=== PATIENT | male | born 1970 | race Two or more races ===

== ENCOUNTER 2019-12-25 08:06 | Day surgery (SDC) | payer MEDICAID, SELFPAY ==
--- NOTE | 2019-12-24 15:16 | HO.ANESPROP2 ---
HPI - Anesthesia Eval Consult details Narrative: 49yo M for Colonoscopy [facility] Past Medical History Medical History (Updated 12/24/19 @ 15:17 by Fatou Nguyễn) Carpal tunnel syndrome Diabetes HTN (hypertension) Thyroid disease Surgical History Surgical History History of carpal tunnel release History of total left hip replacement Hx of thumb surgery Social History Social History (Updated 12/24/19 @ 15:17 by Fatou Nguyễn) Alcohol intake: current Meds Allergies Allergy/AdvReac Type Severity Reaction Status Date / Time Penicillins [PENICILLINS] Allergy Unknown UNKNOWN Unverified 11/08/19 18:47 Home Medications Medication Instructions Recorded Confirmed Type amlodipine 12/21/19 History atorvastatin 12/21/19 History levothyroxine 12/21/19 History lisinopril-hydrochlorothiazide 12/21/19 History meloxicam 12/21/19 History metformin 12/21/19 History multivitamin 12/21/19 12/21/19 History sertraline 12/21/19 History sulindac 12/21/19 History tramadol 12/21/19 History Exam Exam Date and Time: December 24, 2019 1516 Pertinent Lab Results Pertinent Lab Results: Laboratory Tests 10/04/19 10/04/19 10:05 10:05 WBC 8.0 Hgb 14.0 Hct 42.5 Plt Count 209 Sodium 137 Potassium 4.2 Chloride 101 BUN 14 Creatinine 1.12 Assessment and Plan Assessment Anesthesia Assessment: Chart Reviewed
[2019-12-25 08:51] VITALS: BMI 36.5
[2019-12-25 09:10] VITALS: BP 150/97; PULSE 85; RESP 18; TEMP 36.8; O2SAT 97
[2019-12-25 09:15] LABS: Glucose, Whole Blood 100 mg/dL (60-115)
--- NOTE | 2019-12-25 10:10 | P.CONAN_ITS ---
[facility] Past Medical History Medical History Carpal tunnel syndrome Diabetes HTN (hypertension) Thyroid disease Surgical History Surgical History History of carpal tunnel release History of total left hip replacement Hx of thumb surgery Social History Social History Alcohol intake: current Smoking Status: Never smoker Second Hand Smoke Exposure: No Use of substances other than those prescribed or required for medical reasons: No Advance Directives: No Meds Allergies Allergy/AdvReac Type Severity Reaction Status Date / Time Penicillins [PENICILLINS] Allergy Unknown UNKNOWN Unverified 11/08/19 18:47 Home Medications Medication Instructions Recorded Confirmed Type amlodipine 12/21/19 History atorvastatin 12/21/19 History levothyroxine 12/21/19 History lisinopril-hydrochlorothiazide 12/21/19 History meloxicam 12/21/19 History metformin 12/21/19 History multivitamin 12/21/19 12/21/19 History sertraline 12/21/19 History sulindac 12/21/19 History tramadol 12/21/19 History Exam Exam Date and Time: December 25, 2019 1010 Height,Weight and Vital Signs: Height 5 ft 8 in Weight 108.862 kg Last Vital Signs Temp 98.3 F 12/25/19 09:10 Pulse 85 12/25/19 09:10 Resp 18 12/25/19 09:10 BP 150/97 H 12/25/19 09:10 Pulse Ox 97 12/25/19 09:10 Pertinent Lab Results Pertinent Lab Results: Laboratory Tests 12/25/19 09:12 POC Glucose 100 Airway Mallampati Class: II TM Dist: <=3cm Neck ROM: Full Heart: RRR Lungs: CTA Assessment and Plan Assessment Anesthesia Assessment: Anesthesia Plan Discussed and Chart Reviewed Final Anesthetic Review NPO: Yes ASA Class: II Final Preanesthetic Review: Meds/Allgs Chart Reviewed, Consent Obtained/Reviewed and Anes Risks/Benef Reviewed Patient Risk: Intermediate Procedure Risk: Low Anesthetic Plan Anesthetic Plan: MAC: Disposition: Standard PACU
--- NOTE | 2019-12-25 10:35 | MHC.SHP ---
Pre-Procedural Eval Section A The patient is an INPATIENT: No Changes since office visit: No Cold of Flu in the past 2 weeks, No New Medical Problems, No Changes in Medication and No Patient answered all questions The History & Physical has been completed within 30 days and I have reviewed it.: Yes Section B Chief Complaint: screening Allergies: Allergies Allergy/AdvReac Type Severity Reaction Status Date / Time Penicillins [PENICILLINS] Allergy Unknown UNKNOWN Unverified 11/08/19 18:47 Plan Patient has been examined and remains a candidate for the planned procedure
[2019-12-25 11:16] VITALS: BP 131/59; PULSE 80; RESP 16; TEMP 36.9; O2SAT 96
--- NOTE | 2019-12-25 11:22 | PM.OP ---
Brief Operative Note Date of procedure: 12/25/19 Pre-op diagnosis: screening Post-op diagnosis: same Procedure: colonoscopy Surgeon: Fredi Young Anesthesia: MAC Estimated blood loss (mL): 0 Pathology: none sent Condition: stable Disposition: PACU
[2019-12-25 11:29] VITALS: BP 133/87; PULSE 80; RESP 16; TEMP 36.9; O2SAT 97
--- NOTE | 2019-12-25 11:50 | HO.POSTANES ---
Post Anesthesia Evaluation Post Anesthesia Evaluation Vital Signs: Vital Signs Temp Pulse Resp BP Pulse Ox 12/25/19 11:29 98.4 F 80 16 133/87 97 12/25/19 11:16 98.4 F 80 16 131/59 L 96 12/25/19 09:10 98.3 F 85 18 150/97 H 97 Anesthesia: Monitored Mental Status: Awake Pain Control: Satisfactory Nausea/Vomiting: None Hydration: Adequate Anesthesia-Related Issues: No Anes. Related Issues
--- NOTE | 2019-12-25 12:15 | OP_ITS ---
SURGEON: Fredi Young MD INDICATIONS: Colon cancer screening. PREOPERATIVE DIAGNOSIS: POSTOPERATIVE DIAGNOSIS: PROCEDURE PERFORMED: Colonoscopy to the cecum. ESTIMATED BLOOD LOSS: COMPLICATIONS: ANESTHESIA: ASSISTANTS: SPECIMENS: MEDICATIONS: Monitored anesthesia care. PROCEDURE DESCRIPTION: History and physical performed. The risks and benefits of the procedure were explained to the patient. Informed consent was obtained. The patient was placed in the left lateral decubitus position. A digital rectal exam was performed and was found to be normal. The Olympus pediatric video colonoscope was introduced into the rectum and advanced to the cecum with the assistance of abdominal wall pressure. The cecum was identified by transillumination, palpation, and identification of ileocecal valve. Examination was performed and the scope was removed. He tolerated the procedure well and was taken to recovery area in stable condition. FINDINGS: The terminal ileum was not examined. The visualized colonic mucosa was normal. There was a large amount of liquid stool coating the mucosa limiting examination, particularly in the cecum and in the sigmoid. This was washed and suctioned as best possible. No polyps were identified. No lesions were seen. Retroflexed examination was normal. IMPRESSION: Normal colonoscopy. RECOMMENDATIONS: 1. Follow up as needed. 2. Repeat colonoscopy is recommended in 3 years with a 2-day prep due to limitations on today's examination. MD CASSY Zarate/JOHN / [id number]
== END 2019-12-25 11:53 | disposition home or self-care (01) ==
PROVIDERS: PCP Internal Medicine; Visit Provider Internal Medicine Gastroenterology
PROC: 0DJD8ZZ Inspection of Lower Intestinal Tract, Via Natural or Artificial Opening Endoscopic (ICD-10-PCS; CPT 45378; principal; 2019-12-25 09:50)
DX: Z12.11 Encounter for screening for malignant neoplasm of colon (principal); I10 Essential (primary) hypertension; E11.9 Type 2 diabetes mellitus without complications; E03.9 Hypothyroidism, unspecified; Z79.84 Long term (current) use of oral hypoglycemic drugs; Z79.899 Other long term (current) drug therapy; Z79.1 Long term (current) use of non-steroidal anti-inflammatories (NSAID); Z96.642 Presence of left artificial hip joint; Z88.0 Allergy status to penicillin
CPT/HCPCS: 45378; 82947; J2250

== ENCOUNTER 2020-01-09 09:17 | Outpatient (REF) | payer MEDICAID, SELFPAY ==
[2020-01-09 10:57] LABS: Alanine Aminotransferase 57 U/L (0-40); Albumin Level 4.9 g/dL (3.5-5.0); Alkaline Phosphatase 90 U/L (39-117); Anion Gap 15 (12-20); Aspartate Amino Transferase 31 U/L (5-37); Blood Urea Nitrogen 19 mg/dL (9-16); Calcium 9.5 mg/dL (8.4-10.2); Carbon Dioxide 24 mmol/L (22-29); Chloride 99 mmol/L (96-108); Estimated Glomerular Filt Rate > 60; Glucose Random 109 mg/dL (60-115); Potassium 4.4 mmol/l (3.3-5.1); Sodium 134 mmol/L (135-145); Uric Acid 10.2 mg/dL (3.4-7.0)
[2020-01-09 12:04] LABS: Estimated Average Glucose 154 mg/dL
== END 2020-01-09 09:18 | disposition home or self-care (01) ==
LOC: HO.LAB 09:17
PROVIDERS: PCP Internal Medicine; Visit Provider Internal Medicine
DX: E03.8 Other specified hypothyroidism (principal); E78.2 Mixed hyperlipidemia; Z00.01 Encounter for general adult medical examination with abnormal findings; R80.8 Other proteinuria
CPT/HCPCS: 80053; 83036; 84550

== ENCOUNTER 2020-04-03 07:25 | Outpatient (REF) | payer MEDICAID, SELFPAY ==
[2020-04-03 08:27] LABS: Estimated Average Glucose 128 mg/dL; Hemoglobin A1c % 6.1 %
[2020-04-03 08:44] LABS: Alanine Aminotransferase 38 U/L (0-40); Albumin Level 4.7 g/dL (3.5-5.0); Alkaline Phosphatase 97 U/L (39-117); Anion Gap 15 (12-20); Aspartate Amino Transferase 27 U/L (5-37); Blood Urea Nitrogen 12 mg/dL (9-16); Calcium 9.5 mg/dL (8.4-10.2); Carbon Dioxide 27 mmol/L (22-29); Chloride 100 mmol/L (96-108); Estimated Glomerular Filt Rate > 60; Glucose Fasting 125 mg/dL (60-99); Potassium 4.3 mmol/L (3.3-5.1); Sodium 138 mmol/L (135-145); Total Protein 7.6 g/dL (6.5-8.0)
== END 2020-04-03 07:26 | disposition home or self-care (01) ==
LOC: HO.LAB 07:25
PROVIDERS: PCP Internal Medicine; Visit Provider Internal Medicine
DX: E03.9 Hypothyroidism, unspecified (principal); E11.9 Type 2 diabetes mellitus without complications; E78.2 Mixed hyperlipidemia; I10 Essential (primary) hypertension
CPT/HCPCS: 36415; 80053; 83036; 84443

== ENCOUNTER 2020-05-20 14:41 | Outpatient (REF) | payer MEDICAID, SELFPAY ==
--- NOTE | ~2020-05-20 | XR_ITS ---
EXAMINATION: XR FOOT, RIGHT CLINICAL INFORMATION: Pain and swelling COMPARISON: 04/12/2017 TECHNIQUE: AP, lateral, and oblique views of the right foot. FINDINGS: No acute fracture or dislocation. Mild spurring, subchondral sclerosis and some cystic change present at the first metatarsophalangeal joint. Small tibiotalar marginal osteophytes. Small Achilles tendon enthesophyte. Soft tissue swelling dorsal to the metatarsals. XR/XR foot RT min 3V IMPRESSION: No acute fracture or dislocation. Degenerative changes as described.
== END 2020-05-20 14:42 | disposition home or self-care (01) ==
LOC: HO.XRAY 14:41
PROVIDERS: PCP Internal Medicine; Visit Provider Internal Medicine
DX: M79.672 Pain in left foot (principal); R60.0 Localized edema
CPT/HCPCS: 73630

== ENCOUNTER 2020-05-21 08:39 | Outpatient (REF) | payer MEDICAID, SELFPAY ==
--- NOTE | 2020-05-21 08:43 | EMG_ITS ---
This is a 50-year-old man with history of pain in the left upper extremity in the wrist area, for which he received cortisone injection in October and November without much relief. PHYSICAL EXAMINATION: On examination, he is alert and oriented with normal intellectual functions. Cranial nerves II through XII are normal. Muscle tone and strength are normal in all 4 extremities. Deep tendon reflexes symmetrical. IMPRESSION: Carpal tunnel syndrome. Nerve conduction EMG study: Early carpal tunnel syndrome on the left. Normal nerve conduction in the ulnar nerve. Normal EMG of the left C5-T1 innervated muscles. MD JAMEL Ordoñez/JOHN / [id number]
== END 2020-05-21 08:40 | disposition home or self-care (01) ==
LOC: HO.NEURO 08:39
PROVIDERS: PCP Internal Medicine; Visit Provider Internal Medicine
DX: G56.02 Carpal tunnel syndrome, left upper limb (principal)
CPT/HCPCS: 95885; 95910

== ENCOUNTER 2020-05-23 13:51 | Outpatient (REF) | payer MEDICAID, SELFPAY ==
--- NOTE | ~2020-05-23 | XR_ITS ---
EXAMINATION: LEFT WRIST X-RAY CLINICAL INFORMATION: Pain COMPARISON: None TECHNIQUE: 4 views of the left wrist FINDINGS: No acute fracture. The scapholunate distance is widened. There is cortical irregularity of the radial side of the scaphoid bone and the radial styloid questionable for cystic or erosive changes. There is mild ulnar minus variance at the wrist. There are degenerative changes of the distal radial ulnar joint. There is mild osteoarthritis at the first CHCF joint with small bony osteophytes. Soft tissues are unremarkable. XR/XR wrist LT w scaphoid IMPRESSION: Widened scapholunate distance. Cortical irregularity and question cystic change of the distal radial side of the scaphoid bone and the radial styloid. Mild ulnar minus variance and degenerative change at the distal radial ulnar joint.
[2020-05-23 15:45] LABS: MANUAL DIFF FLAG NO
[2020-05-23 15:48] LABS: Basophils Percent Auto 0.4 % (0-2); Eosinophils Absolute Auto 0.3 X10*3/uL (0.0-0.4); Eosinophils Percent Auto 4.3 % (0-4); Hematocrit 39.9 % (42-52); Hemoglobin 13.7 g/dl (14.0-18.0); Imm Gran Abs Auto 0.02 X10*3/uL (0.00-0.03); Imm Gran Pct Auto 0.3 % (0.0-0.4); Lymphocytes Absolute Auto 1.6 X10*3/uL (1.2-4.9); Lymphocytes Percent Auto 20.8 % (20-40); Mean Corpuscular HGB Conc 34.3 g/dl (31.0-36.0); Mean Corpuscular Hemoglobin 30.2 pg (27.0-33.0); Mean Corpuscular Volume 88.1 fL (80-98); Mean Platelet Volume 10.6 fL (9.4-12.4); Monocytes Absolute Auto 0.5 X10*3/uL (0.1-1.2); Monocytes Percent Auto 6.6 % (2-11); Neutrophils Absolute Auto 5.2 X10*3/uL (2.0-8.3); Neutrophils Percent Auto 67.6 % (45-73); Platelet Count 338 X10*3/uL (160-400); Red Blood Count 4.53 X10*6/uL (4.60-5.80); White Blood Count 7.6 X10*3/uL (4.8-10.8)
[2020-05-23 16:01] LABS: Alanine Aminotransferase 27 U/L (0-40); Albumin Level 4.5 g/dL (3.5-5.0); Alkaline Phosphatase 87 U/L (39-117); Anion Gap 14 (12-20); Aspartate Amino Transferase 22 U/L (5-37); Bilirubin Total 0.6 mg/dL (0.0-1.0); Blood Urea Nitrogen 15 mg/dL (9-16); Calcium 9.2 mg/dL (8.4-10.2); Carbon Dioxide 26 mmol/L (22-29); Chloride 99 mmol/L (96-108); Estimated Glomerular Filt Rate > 60; Glucose Random 135 mg/dL (60-115); Potassium 4.2 mmol/L (3.3-5.1); Sodium 135 mmol/L (135-145); Total Protein 7.4 g/dL (6.5-8.0)
[2020-05-23 16:14] LABS: Rheumatoid Factor < 15.0 IU/mL (<15.0); Uric Acid 7.5 mg/dL (3.4-7.0)
[2020-05-23 16:31] LABS: Erythrocyte Sedimentation Rate 34 MM/HR (0-15)
[2020-05-24 05:32] LABS: Lyme Abs Screen <0.90 index
[2020-05-24 11:07] LABS: Cyclic Citrullinated Peptide <16 UNITS
== END 2020-05-23 13:52 | disposition home or self-care (01) ==
LOC: HO.LAB 13:51
PROVIDERS: PCP Internal Medicine; Visit Provider Student in an Organized Health Care Education/Training Program
DX: M25.532 Pain in left wrist (principal); M10.9 Gout, unspecified
CPT/HCPCS: 36415; 73110; 80053; 84550; 85025; 85652; 86140; 86200; 86431; 86617; 86618; 99202

== ENCOUNTER 2020-05-28 16:27 | Outpatient (REF) | payer MEDICAID, SELFPAY ==
--- NOTE | ~2020-05-28 | MR_ITS ---
EXAMINATION: MRI WRIST WITHOUT AND WITH CONTRAST, LEFT CLINICAL INFORMATION: Wrist pain. COMPARISON: X-ray 05/23/2020. TECHNIQUE: MRI of the wrist without and with contrast is performed in a 1.5 Sophie high-field scanner. 10 mL Gadavist. FINDINGS: BONE/JOINTS: Bony irregularity suggesting erosive changes with abnormal marrow edema and enhancement in the radial styloid process, the anterior and posterior aspect of the mid radius articular surface with associated cartilage loss; the radial aspect of the distal scaphoid, the proximal pole of the scaphoid, the radial aspect of the lunate. Edema, enhancement and probable erosive changes along the proximal triquetrum. There is a patchy [id number] edema diffusely in the distal radius; prominent marrow edema and enhancement extensively in the carpal bones, the metatarsal bases, more prominent in the 2nd and 3rd tarsometatarsal bases. Possible erosive changes in the capitate-triquetral articulation. Small wrist joint effusion effusion with synovitis. The findings have the appearance of prominent arthropathy, probably reflecting inflammatory arthropathy such as rheumatoid arthritis. Ulna-negative variance. Small distal radioulnar joint effusion. MUSCLE/TENDONS: Visualized tendons are intact. No significant tenosynovitis. Edema in the pronator quadratus muscle, palmar to the distal radius. LIGAMENTS: Degenerative tearing of the scapholunate ligament, with widening of the scapholunate distance. Degeneration with fraying/tear of the lunotriquetral ligament. Degenerative signal in the ulnar aspect of the TFCC, with possible fraying. No full-thickness tear is identified of the triangular fibrocartilage. MEDIAN NERVE: Within normal limits. MR/MR wrist LT wo/w con IMPRESSION: 1. Prominent arthropathy in the wrist joint, with diffuse marrow edema and enhancement, erosive changes. This includes erosions in the distal radius, the carpal bones as detailed above. Small joint effusion with synovitis. Primary differential consideration is for inflammatory arthropathy such as rheumatoid arthritis. 2. Small distal radioulnar joint. 3. Scapholunate ligament degenerative tearing, widening of the scapholunate distance. 4.Lunotriquetral ligament degeneration with suggestion of fraying/tear. Degenerative fraying of the ulnar component of the TFCC.
== END 2020-05-28 16:28 | disposition home or self-care (01) ==
LOC: HO.MRI 16:27
PROVIDERS: Visit Provider Student in an Organized Health Care Education/Training Program
DX: M25.532 Pain in left wrist (principal)
CPT/HCPCS: 73223; A9585

== ENCOUNTER 2020-06-04 07:21 | Outpatient (REF) | payer MEDICAID, SELFPAY ==
[2020-06-04 09:01] LABS: HBS Num1 0.73 mIU/mL (0-7.99); HBsAGNum1 0.31 S/CO (0.00-0.99); Hepatitis B Surface Antigen Negative (Negative); ~Hepatitis B Surface Antibody NONREACTIVE (Nonreactive)
[2020-06-04 09:14] LABS: HBc Num1 0.07 S/CO (0.00-0.79); Hepatitis A Antibody IgM 0.15 Index (0-0.79); Hepatitis B Core Antibody Nonreactive (Nonreactive); ~HepC Num1 0.17 S/CO (0.00-0.79); ~Hepatitis A Antibody IgM Nonreactive (Nonreactive); ~Hepatitis C Antibody Nonreactive (Nonreactive)
[2020-06-06 20:52] LABS: TS Negative Control Passed; TS Panel A 0; TS Panel B 0; TS Positive Control Passed; TSpotTB Negative (SeeBelow)
== END 2020-06-04 07:22 | disposition home or self-care (01) ==
LOC: HO.LAB 07:21
PROVIDERS: PCP Internal Medicine; Visit Provider Student in an Organized Health Care Education/Training Program
DX: M19.90 Unspecified osteoarthritis, unspecified site (principal)
CPT/HCPCS: 36415; 86481; 86704; 86706; 86709; 86803; 87340

== ENCOUNTER 2020-06-24 08:56 | Outpatient (REF) | payer MEDICAID, SELFPAY ==
--- NOTE | ~2020-06-24 | XR_ITS ---
EXAMINATION: PELVIS AND LEFT HIP AND LUMBAR SPINE X-RAY CLINICAL INFORMATION: Pain. Radiculopathy. COMPARISON: Previous left hip x-ray February 2014 TECHNIQUE: AP view of the pelvis and 2 views of the left hip. 3 views of the lumbar spine. FINDINGS: Pelvis and left hip: There is a left hip replacement in satisfactory position. No fracture, dislocation or x-ray evidence of loosening is seen. There is mild arthritis of the right hip joint with joint space narrowing and osteophyte formation. Bones of the pelvis are unremarkable. Soft tissues are unremarkable. Lumbar spine: Bone alignment is normal. No fracture or dislocation is seen. There is degenerative disc disease at L5-S1. There is degenerative spondylosis at L1-L2. There is lower lumbar spine facet arthritis. XR/XR hip LT w PEL1V IMPRESSION: Pelvis and left hip: Left hip replacement in satisfactory position. Mild arthritis at the right hip joint. Lumbar spine: Degenerative changes.
--- NOTE | ~2020-06-24 | XR_ITS ---
EXAMINATION: PELVIS AND LEFT HIP AND LUMBAR SPINE X-RAY CLINICAL INFORMATION: Pain. Radiculopathy. COMPARISON: Previous left hip x-ray February 2014 TECHNIQUE: AP view of the pelvis and 2 views of the left hip. 3 views of the lumbar spine. FINDINGS: Pelvis and left hip: There is a left hip replacement in satisfactory position. No fracture, dislocation or x-ray evidence of loosening is seen. There is mild arthritis of the right hip joint with joint space narrowing and osteophyte formation. Bones of the pelvis are unremarkable. Soft tissues are unremarkable. Lumbar spine: Bone alignment is normal. No fracture or dislocation is seen. There is degenerative disc disease at L5-S1. There is degenerative spondylosis at L1-L2. There is lower lumbar spine facet arthritis. XR/XR lumbar spine 2-3V IMPRESSION: Pelvis and left hip: Left hip replacement in satisfactory position. Mild arthritis at the right hip joint. Lumbar spine: Degenerative changes.
== END 2020-06-24 08:57 | disposition home or self-care (01) ==
LOC: HO.XRAY 08:56
PROVIDERS: Absent Provider Student in an Organized Health Care Education/Training Program; PCP Internal Medicine; Visit Provider Physician Assistant Surgical
DX: M54.16 Radiculopathy, lumbar region (principal)
CPT/HCPCS: 72100; 73502

== ENCOUNTER → 2020-06-26 12:37 | Outpatient (BNVA) | payer MEDICAID, SELFPAY | PROVIDERS: Visit Provider Student in an Organized Health Care Education/Training Program | DX: M19.90 Unspecified osteoarthritis, unspecified site (principal); M10.9 Gout, unspecified; G56.00 Carpal tunnel syndrome, unspecified upper limb; E11.9 Type 2 diabetes mellitus without complications; I10 Essential (primary) hypertension; E07.9 Disorder of thyroid, unspecified; Z88.0 Allergy status to penicillin; Z79.84 Long term (current) use of oral hypoglycemic drugs; Z79.899 Other long term (current) drug therapy | CPT/HCPCS: 99212 ==

== ENCOUNTER 2020-07-11 09:03 | Outpatient (REF) | payer MEDICAID, SELFPAY ==
[2020-07-11 10:58] LABS: Alanine Aminotransferase 58 U/L (0-40); Albumin Level 4.6 g/dL (3.5-5.0); Alkaline Phosphatase 81 U/L (39-117); Anion Gap 14 (12-20); Aspartate Amino Transferase 54 U/L (5-37); Bilirubin Total 0.5 mg/dL (0.0-1.0); Blood Urea Nitrogen 14 mg/dL (9-16); Calcium 9.5 mg/dL (8.4-10.2); Carbon Dioxide 27 mmol/L (22-29); Chloride 104 mmol/L (96-108); Estimated Glomerular Filt Rate > 60; Glucose Random 125 mg/dL (60-115); Potassium 4.9 mmol/L (3.3-5.1); Sodium 140 mmol/L (135-145); Total Protein 7.4 g/dL (6.5-8.0)
[2020-07-11 11:03] LABS: Estimated Average Glucose 134 mg/dL; Hemoglobin A1c % 6.3 %
== END 2020-07-11 09:04 | disposition home or self-care (01) ==
LOC: HO.LAB 09:03
PROVIDERS: PCP Internal Medicine; Visit Provider Internal Medicine
DX: E03.8 Other specified hypothyroidism (principal); E11.9 Type 2 diabetes mellitus without complications; G56.02 Carpal tunnel syndrome, left upper limb; I10 Essential (primary) hypertension; R21 Rash and other nonspecific skin eruption
CPT/HCPCS: 36415; 80053; 83036

== ENCOUNTER 2020-07-24 12:34 | Outpatient (REF) | payer MEDICAID, SELFPAY ==
[2020-07-24 13:45] LABS: MANUAL DIFF FLAG NO
[2020-07-24 13:51] LABS: Basophils Absolute Auto 0.1 X10*3/uL (0.0-0.2); Basophils Percent Auto 0.6 % (0-2); Eosinophils Absolute Auto 0.2 X10*3/uL (0.0-0.4); Eosinophils Percent Auto 2.5 % (0-4); Hematocrit 41.2 % (42-52); Hemoglobin 13.8 g/dl (14.0-18.0); Imm Gran Abs Auto 0.04 X10*3/uL (0.00-0.03); Imm Gran Pct Auto 0.5 % (0.0-0.4); Lymphocytes Absolute Auto 1.6 X10*3/uL (1.2-4.9); Lymphocytes Percent Auto 18.1 % (20-40); Mean Corpuscular HGB Conc 33.5 g/dl (31.0-36.0); Mean Corpuscular Hemoglobin 29.7 pg (27.0-33.0); Mean Corpuscular Volume 88.6 fL (80-98); Mean Platelet Volume 10.6 fL (9.4-12.4); Monocytes Absolute Auto 0.6 X10*3/uL (0.1-1.2); Monocytes Percent Auto 6.8 % (2-11); Neutrophils Absolute Auto 6.2 X10*3/uL (2.0-8.3); Neutrophils Percent Auto 71.5 % (45-73); Platelet Count 301 X10*3/uL (160-400); Red Blood Count 4.65 X10*6/uL (4.60-5.80); Red Cell Distribution Width 15.1 % (11.0-16.0); White Blood Count 8.7 X10*3/uL (4.8-10.8)
[2020-07-24 14:30] LABS: Alanine Aminotransferase 29 U/L (0-40); Albumin Level 4.6 g/dL (3.5-5.0); Alkaline Phosphatase 86 U/L (39-117); Anion Gap 18 (12-20); Aspartate Amino Transferase 24 U/L (5-37); Bilirubin Total 0.7 mg/dL (0.0-1.0); Blood Urea Nitrogen 18 mg/dL (9-16); C Reactive Protein 0.34 mg/dL (< or = 0.50); Calcium 10.1 mg/dL (8.4-10.2); Carbon Dioxide 27 mmol/L (22-29); Chloride 102 mmol/L (96-108); Estimated Glomerular Filt Rate 51; Glucose Random 125 mg/dL (60-115); Potassium 4.8 mmol/L (3.3-5.1); Sodium 142 mmol/L (135-145); Total Protein 7.6 g/dL (6.5-8.0)
[2020-07-24 15:54] LABS: Erythrocyte Sedimentation Rate 12 MM/HR (0-15)
== END 2020-07-24 12:35 | disposition home or self-care (01) ==
LOC: HO.LAB 12:34
PROVIDERS: PCP Internal Medicine; Visit Provider Student in an Organized Health Care Education/Training Program
DX: M19.90 Unspecified osteoarthritis, unspecified site (principal)
CPT/HCPCS: 36415; 80053; 85025; 85652; 86140

== ENCOUNTER → 2020-08-06 07:52 | Outpatient (BNVA) | payer MEDICAID, SELFPAY | PROVIDERS: PCP Internal Medicine; Visit Provider Student in an Organized Health Care Education/Training Program ==

== ENCOUNTER → 2020-08-12 10:53 | Outpatient (BNVA) | payer MEDICAID, SELFPAY | PROVIDERS: PCP Internal Medicine; Visit Provider Student in an Organized Health Care Education/Training Program | DX: L40.50 Arthropathic psoriasis, unspecified (principal); M10.9 Gout, unspecified | CPT/HCPCS: 99212 ==

== ENCOUNTER 2020-09-03 07:47 | Outpatient (REF) | payer MEDICAID, SELFPAY ==
[2020-09-03 08:32] LABS: MANUAL DIFF FLAG NO
[2020-09-03 08:39] LABS: Basophils Percent Auto 0.5 % (0-2); Eosinophils Absolute Auto 0.2 X10*3/uL (0.0-0.4); Eosinophils Percent Auto 1.9 % (0-4); Hematocrit 41.9 % (42-52); Hemoglobin 13.9 g/dl (14.0-18.0); Imm Gran Abs Auto 0.05 X10*3/uL (0.00-0.03); Imm Gran Pct Auto 0.6 % (0.0-0.4); Lymphocytes Absolute Auto 2.3 X10*3/uL (1.2-4.9); Lymphocytes Percent Auto 28.1 % (20-40); Mean Corpuscular HGB Conc 33.2 g/dl (31.0-36.0); Mean Corpuscular Hemoglobin 29.8 pg (27.0-33.0); Mean Corpuscular Volume 89.9 fL (80-98); Mean Platelet Volume 10.5 fL (9.4-12.4); Monocytes Absolute Auto 0.5 X10*3/uL (0.1-1.2); Monocytes Percent Auto 6.4 % (2-11); Neutrophils Absolute Auto 5.2 X10*3/uL (2.0-8.3); Neutrophils Percent Auto 62.5 % (45-73); Platelet Count 202 X10*3/uL (160-400); Red Blood Count 4.66 X10*6/uL (4.60-5.80); Red Cell Distribution Width 14.8 % (11.0-16.0); White Blood Count 8.3 X10*3/uL (4.8-10.8)
[2020-09-03 09:00] LABS: Estimated Average Glucose 137 mg/dL; Hemoglobin A1c % 6.4 %
[2020-09-03 09:25] LABS: Thyroid Stimulating Hormone 1.72 uIU/mL (0.32-4.0)
[2020-09-03 09:32] LABS: Alanine Aminotransferase 39 U/L (0-40); Albumin Level 4.6 g/dL (3.5-5.0); Alkaline Phosphatase 83 U/L (39-117); Anion Gap 15 (12-20); Aspartate Amino Transferase 29 U/L (5-37); Bilirubin Total 0.9 mg/dL (0.0-1.0); Blood Urea Nitrogen 14 mg/dL (9-16); Carbon Dioxide 25 mmol/L (22-29); Chloride 102 mmol/L (96-108); Cholesterol 193 mg/dL; Estimated Glomerular Filt Rate > 60; Glucose Random 142 mg/dL (60-115); HDL Cholesterol 44 mg/dL; LDL Cholesterol Calculated 92 mg/dl; Potassium 4.7 mmol/L (3.3-5.1); Sodium 137 mmol/L (135-145); Total Protein 7.6 g/dL (6.5-8.0); Triglycerides 286 mg/dL; Uric Acid 9.3 mg/dL (3.4-7.0)
[2020-09-03 10:46] LABS: Microalbum/Creatinine Ratio Ur 11.7 ug/mg cr
[2020-09-05 13:42] LABS: Anti Nuclear Antibody Screen NEGATIVE (NEGATIVE)
== END 2020-09-03 07:48 | disposition home or self-care (01) ==
LOC: HO.LAB 07:47
PROVIDERS: Absent Provider Student in an Organized Health Care Education/Training Program; PCP Internal Medicine; Visit Provider Internal Medicine
DX: E03.9 Hypothyroidism, unspecified (principal); E11.9 Type 2 diabetes mellitus without complications; E78.00 Pure hypercholesterolemia, unspecified; G56.02 Carpal tunnel syndrome, left upper limb; I10 Essential (primary) hypertension; M10.9 Gout, unspecified
CPT/HCPCS: 36415; 80053; 80061; 82043; 83036; 84443; 84550; 85025; 86038; 86039

== ENCOUNTER → 2020-10-17 08:10 | Outpatient (BNVA) | payer MEDICAID, SELFPAY | PROVIDERS: PCP Internal Medicine; Visit Provider Student in an Organized Health Care Education/Training Program | DX: L40.50 Arthropathic psoriasis, unspecified (principal); M10.9 Gout, unspecified; E11.9 Type 2 diabetes mellitus without complications; I10 Essential (primary) hypertension | CPT/HCPCS: 99212 ==

== ENCOUNTER 2020-12-22 06:58 | Outpatient (REF) | payer MEDICAID, SELFPAY ==
[2020-12-22 07:47] LABS: MANUAL DIFF FLAG NO
[2020-12-22 07:58] LABS: Basophils Absolute Auto 0.1 X10*3/uL (0.0-0.2); Basophils Percent Auto 0.6 % (0-2); Eosinophils Absolute Auto 0.5 X10*3/uL (0.0-0.4); Eosinophils Percent Auto 5.3 % (0-4); Hematocrit 43.3 % (42.0-52.0); Hemoglobin 14.4 g/dl (14.0-18.0); Imm Gran Abs Auto 0.04 X10*3/uL (0.00-0.03); Imm Gran Pct Auto 0.4 % (0.0-0.4); Lymphocytes Absolute Auto 2.7 X10*3/uL (1.2-4.9); Lymphocytes Percent Auto 28.2 % (20-40); Mean Corpuscular HGB Conc 33.3 g/dl (31.0-36.0); Mean Corpuscular Volume 90.2 fL (80.0-98.0); Mean Platelet Volume 10.5 fL (9.4-12.4); Monocytes Absolute Auto 0.7 X10*3/uL (0.1-1.2); Monocytes Percent Auto 7.7 % (2-11); Neutrophils Absolute Auto 5.54 x10*3/uL (2.0-8.3); Neutrophils Percent Auto 57.8 % (45-73); Platelet Count 294 X10*3/uL (160-400); White Blood Count 9.6 X10*3/uL (4.8-10.8)
[2020-12-22 08:26] LABS: Alanine Aminotransferase 38 U/L (0-40); Albumin Level 4.8 g/dL (3.5-5.0); Alkaline Phosphatase 97 U/L (39-117); Anion Gap 16 (12-20); Aspartate Amino Transferase 25 U/L (5-37); Bilirubin Total 0.4 mg/dL (0.0-1.0); Blood Urea Nitrogen 16 mg/dL (9-16); C Reactive Protein 0.47 mg/dL (< or = 0.50); Calcium 10.2 mg/dL (8.4-10.2); Carbon Dioxide 25 mmol/L (22-29); Chloride 104 mmol/L (96-108); Cholesterol 144 mg/dL; Estimated Glomerular Filt Rate > 60; Glucose Random 122 mg/dL (60-115); HDL Cholesterol 40 mg/dL; LDL Cholesterol Calculated 62 mg/dl; Potassium 4.8 mmol/L (3.3-5.1); Sodium 140 mmol/L (135-145); Total Protein 7.7 g/dL (6.5-8.0); Triglycerides 214 mg/dL
[2020-12-22 08:38] LABS: Estimated Average Glucose 143 mg/dL; Hemoglobin A1c % 6.6 %
[2020-12-22 08:49] LABS: Erythrocyte Sedimentation Rate 11 MM/HR (0-15)
== END 2020-12-22 06:59 | disposition home or self-care (01) ==
LOC: HO.LAB 06:58
PROVIDERS: Absent Provider Student in an Organized Health Care Education/Training Program; PCP Internal Medicine; Visit Provider Internal Medicine
DX: Z00.01 Encounter for general adult medical examination with abnormal findings (principal); M10.9 Gout, unspecified; I10 Essential (primary) hypertension; F32.89 Other specified depressive episodes; E78.2 Mixed hyperlipidemia; E11.9 Type 2 diabetes mellitus without complications
CPT/HCPCS: 36415; 80053; 80061; 83036; 85025; 85652; 86140

== ENCOUNTER → 2021-01-12 12:24 | Outpatient (BNVA) | payer MEDICAID, SELFPAY | PROVIDERS: PCP Internal Medicine; Visit Provider Nurse Practitioner Family | DX: L40.50 Arthropathic psoriasis, unspecified (principal); M10.9 Gout, unspecified | CPT/HCPCS: 99212 ==

== ENCOUNTER 2021-03-10 08:00 | Outpatient (RCR) | payer MEDICAID, SELFPAY ==
--- NOTE | 2021-02-18 15:32 | MHC.OT.OEV ---
[address] [phone] F: [phone] Occupational Therapy Evaluation Diagnosis: Right medial elbow pain Date of Onset: 01/27/21 Date of Surgery: Attending Provider: Shivani Reardon Prescribed Treatment: Eval and kiki MATOS Follow Up Appointment: History of Current Condition: Pt reports onset of right medial elbow pain one week after low back surgery. Injected by PCP with some improvement Significant Medical History: Left THR , right CTR, Right CMC arthroplasty, Precautions/Contraindications: Pain Patient Goals: Get elbow and arm back on track Hand Dominance: Right Observations: QuickDASH Score: 47 Prior Level of Function and Occupation Self Care, Employment, Leisure: Indep in all areas. 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 Living Situation, Family and/or Social Support: Single . Lives alone Some social support. Visits [place] Current Level of Function and Occupation Self Care, Employment, Leisure: Mild difficulty ADL due to elbow discomfort Inc with twist mop. Sleep: Mild diff. Occasional discomfort and tingling in hand Driving: WNL Vision: WFL Balance: WFL . 4 wks po back surgery Pain Assessment Pain Score: 3 Pain Scale Used: Numeric (0 - 10) Pain Location and Description: 2-3 right medial elbow. Ache Aggravating Factors: Lifting , pulling... Alleviating Factors: Skin and Soft Tissue Assessment Skin and Soft Tissue: Comments: Old right hand scars..CMC arthroplasty Nerve assessment Ulnar Nerve: WNL Median Nerve: WNL Radial Nerve: WNL Comments: Sensory Assessment Temperature: Light Touch: WNL Proprioception: Vibration: Comments: Edema Assessment Upper Extremity: WNL Lower Extremity: Comments: Dexterity Assessment Dexterity: WNL Comments: Special Tests Comments: AROM(PROM) Strength Cervical Cervical Flexion: Cervical Extension: Cervical Lateral Flexion: Cervical Rotation: Comments: WFL Shoulder Flexion: Extension: Abduction: Internal Rotation: External Rotation: Comments: WNL Flexion: Extension: Abduction: Internal Rotation: External Rotation: Comments: Elbow Flexion: Extension: Pronation: Supination: Comments: WNL Flexion: Extension: Pronation: Supination: Comments: WNL Wrist Flexion: Extension: Ulnar Deviation: Radial Deviation: Comments: WFL . 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 Patient demonstrates Patient verbalizes Barriers to Learning: None Readiness for Learning: Accepting Who was educated? Patient Comments: Plan of Care Assessment: Pt is a 50 yo male with recent right medial elbow pain probably due to use of a cane and supporting his wt on his right hand since back surgery on 01/22/21. He reports significant improvement since his elbow was injected by Dr. Reardon . 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 Pt will benefit from a short course of OT for a graded strenghtening program for elbow reinjury prevention. 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
--- NOTE | 2021-03-10 08:48 | MHC.OT.DC ---
[address] [phone] F: [phone] Occupational Therapy Discharge Note Provider: Shivani Reardon Diagnosis: Right medial elbow pain Date of Surgery: Date of Evaluation: 02/18/21 Date of Discharge: 03/10/21 Treatments to Date: 4 Cancellations to Date: 0 No Shows to Date: 0 Discharge Status: Achieved Goals Improved Function Independent with HEP Discharge Summary: Elbow pain improved. Goal met. Pt demo good body mechanics a good understanding of his HEP and elbow protection techniques. Daily activities are not affected by elbow pain ,however he reports moderate difficulty with daily activities due to bilateral wrist pain with a Quick DASH score of 59 pts. 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 He may benefit from OT for wrist pain when he finishes with PT Electronically Signed By: Terri Acosta OT CHT CLT Reviewed/agree with student documentation: N/A Therapist: Please Sign and return to therapist, thank you for your referral.
== END 2021-03-10 08:49 | disposition home or self-care (01) ==
LOC: HO.OT 08:00
PROVIDERS: PCP Internal Medicine; Visit Provider Internal Medicine
DX: M77.00 Medial epicondylitis, unspecified elbow (principal)
CPT/HCPCS: 97110; 97165

== ENCOUNTER 2021-04-01 07:20 | Outpatient (REF) | payer MEDICAID, SELFPAY ==
[2021-04-01 07:39] LABS: MANUAL DIFF FLAG NO
[2021-04-01 07:54] LABS: Basophils Percent Auto 0.4 % (0-2); Eosinophils Absolute Auto 0.3 X10*3/uL (0.0-0.4); Hematocrit 41.5 % (42.0-52.0); Hemoglobin 13.7 g/dl (14.0-18.0); Imm Gran Abs Auto 0.08 X10*3/uL (0.00-0.03); Imm Gran Pct Auto 1.2 % (0.0-0.4); Lymphocytes Absolute Auto 2.3 X10*3/uL (1.2-4.9); Lymphocytes Percent Auto 33.3 % (20-40); Mean Corpuscular Hemoglobin 29.1 pg (27.0-33.0); Mean Corpuscular Volume 88.3 fL (80.0-98.0); Mean Platelet Volume 10.3 fL (9.4-12.4); Monocytes Absolute Auto 0.7 X10*3/uL (0.1-1.2); Neutrophils Absolute Auto 3.5 x10*3/uL (2.0-8.3); Neutrophils Percent Auto 51.1 % (45-73); Platelet Count 293 X10*3/uL (160-400); Red Cell Distribution Width 13.8 % (11.0-16.0); White Blood Count 6.8 X10*3/uL (4.8-10.8)
[2021-04-01 08:08] LABS: Estimated Average Glucose 154 mg/dL
[2021-04-01 08:18] LABS: Alanine Aminotransferase 72 U/L (0-40); Albumin Level 4.5 g/dL (3.5-5.0); Alkaline Phosphatase 103 U/L (39-117); Anion Gap 14 (12-20); Aspartate Amino Transferase 50 U/L (5-37); Bilirubin Total 0.7 mg/dL (0.0-1.0); Blood Urea Nitrogen 12 mg/dL (9-16); C Reactive Protein 0.21 mg/dL (< or = 0.50); Carbon Dioxide 27 mmol/L (22-29); Chloride 103 mmol/L (96-108); Estimated Glomerular Filt Rate > 60; Glucose Random 161 mg/dL (60-115); Potassium 4.6 mmol/L (3.3-5.1); Sodium 139 mmol/L (135-145); Total Protein 7.5 g/dL (6.5-8.0)
[2021-04-01 08:40] LABS: Erythrocyte Sedimentation Rate 11 MM/HR (0-15)
[2021-04-01 08:52] LABS: Thyroid Stimulating Hormone 1.79 uIU/mL (0.32-4.0)
== END 2021-04-01 07:21 | disposition home or self-care (01) ==
LOC: HO.LAB 07:20
PROVIDERS: Nurse Practitioner Family; PCP Internal Medicine; Visit Provider Internal Medicine
DX: L40.50 Arthropathic psoriasis, unspecified (principal); M19.90 Unspecified osteoarthritis, unspecified site; I10 Essential (primary) hypertension; E03.8 Other specified hypothyroidism; E11.9 Type 2 diabetes mellitus without complications; E78.2 Mixed hyperlipidemia; F32.A Depression, unspecified; Z68.36 Body mass index [BMI] 36.0-36.9, adult
CPT/HCPCS: 36415; 80053; 83036; 84443; 85025; 85652; 86140

== ENCOUNTER 2021-05-25 13:33 | Outpatient (REF) | payer MEDICAID, SELFPAY ==
--- NOTE | ~2021-05-25 | XR_ITS ---
EXAMINATION: XR LUMBOSACRAL SPINE WITH OBLIQUES CLINICAL INFORMATION: Radiculopathy. Lumbar region. COMPARISON: None TECHNIQUE: AP, both oblique, and lateral views of the lumbar spine. Lateral view of the lumbosacral junction. FINDINGS: There is normal lumbar lordosis. There is loss of L5-S1 disc height. Rest the disc heights are maintained normal. There is mild ventral spondylosis L1-L2, L2-L3 and L3-L4 disc levels. No acute fracture or lytic process seen. There is no pars defect or listhesis on oblique view. No subluxation seen on flexion-extension views. The SI joints are symmetrical and normal. There is a total left hip prosthesis. The prosthetic components are in satisfactory position. No soft tissue abnormality seen. XR/XR lumbar spine 6V w bending IMPRESSION: Mild degenerative disc changes L5-S1 disc level. There is no subluxation seen on flexion-extension views. No pars defect or listhesis on oblique views. There is mild posterior spondylosis L2-L3, L3-L4 and L4-L5 disc levels.
== END 2021-05-25 13:34 | disposition home or self-care (01) ==
LOC: HO.XRAY 13:33
PROVIDERS: PCP Internal Medicine; Visit Provider Nurse Practitioner Family
DX: M54.16 Radiculopathy, lumbar region (principal); M43.06 Spondylolysis, lumbar region; M62.830 Muscle spasm of back; M96.1 Postlaminectomy syndrome, not elsewhere classified; E11.9 Type 2 diabetes mellitus without complications; I10 Essential (primary) hypertension; E07.9 Disorder of thyroid, unspecified; Z96.642 Presence of left artificial hip joint; Z88.0 Allergy status to penicillin; Z88.8 Allergy status to other drugs, medicaments and biological substances; Z79.84 Long term (current) use of oral hypoglycemic drugs; Z79.899 Other long term (current) drug therapy
CPT/HCPCS: 72114; 99202

== ENCOUNTER → 2021-06-19 09:06 | Outpatient (BNVA) | payer MEDICAID, SELFPAY | PROVIDERS: PCP Internal Medicine; Visit Provider Nurse Practitioner Family | DX: M43.06 Spondylolysis, lumbar region (principal); M96.1 Postlaminectomy syndrome, not elsewhere classified; M54.16 Radiculopathy, lumbar region; M62.830 Muscle spasm of back | CPT/HCPCS: 99212 ==

== ENCOUNTER 2021-07-02 06:25 | Outpatient (REF) | payer MEDICAID, SELFPAY ==
[2021-07-02 07:52] LABS: Estimated Average Glucose 146 mg/dL; Hemoglobin A1c % 6.7 %
[2021-07-02 08:17] LABS: Alanine Aminotransferase 47 U/L (0-40); Albumin Level 4.5 g/dL (3.5-5.0); Alkaline Phosphatase 99 U/L (39-117); Anion Gap 15 (12-20); Aspartate Amino Transferase 41 U/L (5-37); Bilirubin Total 0.8 mg/dL (0.0-1.0); Blood Urea Nitrogen 16 mg/dL (9-16); Calcium 10.1 mg/dL (8.4-10.2); Carbon Dioxide 27 mmol/L (22-29); Chloride 104 mmol/L (96-108); Estimated Glomerular Filt Rate > 60; Glucose Random 156 mg/dL (60-115); Potassium 4.7 mmol/L (3.3-5.1); Sodium 141 mmol/L (135-145)
== END 2021-07-02 06:26 | disposition home or self-care (01) ==
LOC: HO.LAB 06:25
PROVIDERS: PCP Internal Medicine; Visit Provider Internal Medicine
DX: E03.8 Other specified hypothyroidism (principal); E11.9 Type 2 diabetes mellitus without complications; I10 Essential (primary) hypertension; M96.1 Postlaminectomy syndrome, not elsewhere classified; R63.5 Abnormal weight gain; R74.01 Elevation of levels of liver transaminase levels
CPT/HCPCS: 36415; 80053; 83036

== ENCOUNTER 2021-08-14 13:07 | Outpatient (REF) | payer MEDICAID, SELFPAY ==
--- NOTE | ~2021-08-14 | MM_ITS ---
EXAMINATION: MM DIAGNOSTIC DIGITAL BREAST TOMOSYNTHESIS, BILATERAL Targeted right breast ultrasound CLINICAL INFORMATION: Right breast lump COMPARISON: Mammography: None TECHNIQUE: Digital breast tomosynthesis is performed in both the craniocaudal and mediolateral oblique views along with computer-aided detection (CAD). Synthesized 2D images are generated from the tomosynthesis. Targeted right breast ultrasound FINDINGS: The breasts are almost entirely fatty (ACR BI-RADS breast composition Category a). There are no significant masses, abnormal calcifications, or other abnormalities. There is some retroareolar parenchyma present right greater than left. Targeted right breast ultrasound demonstrated the appearance of gynecomastia without suspicious mass or sound shadowing. Results are discussed with the patient at time of visit. MM/MM tomosynthesis diagnostic BI IMPRESSION: No specific mammographic or ultrasound findings to suggest malignancy. ASSESSMENT: BI-RADS 1: Negative RECOMMENDATION: Clinical follow-up
== END 2021-08-14 13:08 | disposition home or self-care (01) ==
LOC: HO.MAMMO 13:07
PROVIDERS: PCP Internal Medicine; Visit Provider Internal Medicine
DX: N63.20 Unspecified lump in the left breast, unspecified quadrant (principal); N63.10 Unspecified lump in the right breast, unspecified quadrant
CPT/HCPCS: 76642; 77062; 77066

== ENCOUNTER → 2021-08-25 14:23 | Outpatient (BNVA) | payer MEDICAID, SELFPAY | PROVIDERS: PCP Internal Medicine; Visit Provider Surgery | DX: N63.10 Unspecified lump in the right breast, unspecified quadrant (principal) | CPT/HCPCS: 99202 ==

== ENCOUNTER 2021-08-28 05:53 | Day surgery (SDC) | payer MEDICAID, SELFPAY ==
--- NOTE | 2021-08-27 10:05 | HO.ANESPROP2 ---
Documented by User: Fatou Nguyễn NP 08/27/21 10:07 HPI - Anesthesia Eval Consult details Narrative: 51yo M for?Lumbar Spinal Cord Stimulation Trial [facility] Active Problems Active Problems: All Active Problems (Updated 05/25/21 @ 14:26 by RACHNA Ford) Muscle spasm of back (Acute) Lumbar radiculopathy (Acute) Lumbar spondylolysis (Acute) Lumbar post-laminectomy syndrome (Acute) Psoriatic arthritis (Acute) Inflammatory arthritis (Acute) Gout (Acute) Left wrist pain (Acute) Past Medical History Medical History Carpal tunnel syndrome Diabetes HTN (hypertension) Thyroid disease Family History Family History Mother HTN (hypertension) Father Hypothyroidism Surgical History Surgical History History of carpal tunnel release History of total left hip replacement Hx of thumb surgery Social History Social History Alcohol intake: current Patient Tobacco Use Status: Never used Tobacco e-Cigarette/Vaping Use: Never Used Second Hand Smoke Exposure: No Use of substances other than those prescribed or required for medical reasons: No Are you DNR?: No Advance Directives: No Advance Directives Information Provided: Yes Recently lost weight without trying: No Nutrition Risks: No Nutritional Risk Meds Allergies Allergy/AdvReac Type Severity Reaction Status Date / Time Penicillins [PENICILLINS] Allergy Unknown as a child Verified 08/25/21 14:33 etanercept [From Enbrel] Allergy Rash Verified 08/25/21 14:33 Home Medications Medication Instructions Recorded Confirmed Last Taken Type atorvastatin 80 mg tablet 80 mg PO DAILY 05/23/20 08/27/21 Unknown History levothyroxine 50 mcg capsule 50 mcg PO DAILY 05/23/20 08/27/21 Unknown History metformin 850 mg tablet 850 mg PO BID 05/23/20 08/27/21 Unknown History multivitamin 1 tab PO DAILY 05/23/20 08/27/21 Unknown History sertraline 100 mg tablet 100 mg PO DAILY 05/23/20 08/27/21 Unknown History lisinopril 40 mg tablet 40 mg PO DAILY 08/12/20 08/27/21 Unknown History allopurinol 300 mg tablet 600 mg PO BID gout 05/25/21 08/27/21 Unknown History nortriptyline 50 mg capsule 50 mg PO BEDTIME 05/25/21 08/27/21 Unknown History Exam Exam Date and Time: August 27, 2021 1005 Pertinent Lab Results Pertinent Lab Results: Laboratory Tests 04/01/21 07/02/21 07:38 06:40 WBC 6.8 Hgb 13.7 L Hct 41.5 L Plt Count 293 Sodium 141 Potassium 4.7 Chloride 104 Carbon Dioxide 27 BUN 16 Creatinine 1.11 Assessment and Plan Assessment Anesthesia Assessment: Chart Reviewed Documented by User: Owen Kolb MD 08/28/21 07:25 [facility] Past Medical History Medical History Carpal tunnel syndrome Diabetes HTN (hypertension) Thyroid disease Family History Family History Mother HTN (hypertension) Father Hypothyroidism Family history of problems with anesthesia: No Surgical History Surgical History History of carpal tunnel release History of total left hip replacement Hx of thumb surgery History of Problems with Anesthesia: No Social History Social History Alcohol intake: current Patient Tobacco Use Status: Never used Tobacco e-Cigarette/Vaping Use: Never Used Second Hand Smoke Exposure: No Use of substances other than those prescribed or required for medical reasons: No Are you DNR?: No Advance Directives: No Advance Directives Information Provided: Yes Recently lost weight without trying: No Nutrition Risks: No Nutritional Risk Meds Allergies Allergy/AdvReac Type Severity Reaction Status Date / Time Penicillins [PENICILLINS] Allergy Unknown as a child Verified 08/25/21 14:33 etanercept [From Enbrel] Allergy Rash Verified 08/25/21 14:33 Home Medications Medication Instructions Recorded Confirmed Last Taken Type atorvastatin 80 mg tablet 80 mg PO DAILY 05/23/20 08/27/21 Unknown History levothyroxine 50 mcg capsule 50 mcg PO DAILY 05/23/20 08/27/21 Unknown History metformin 850 mg tablet 850 mg PO BID 05/23/20 08/27/21 Unknown History multivitamin 1 tab PO DAILY 05/23/20 08/27/21 Unknown History sertraline 100 mg tablet 100 mg PO DAILY 05/23/20 08/27/21 Unknown History lisinopril 40 mg tablet 40 mg PO DAILY 08/12/20 08/27/21 Unknown History allopurinol 300 mg tablet 600 mg PO BID gout 05/25/21 08/27/21 Unknown History nortriptyline 50 mg capsule 50 mg PO BEDTIME 05/25/21 08/27/21 Unknown History Exam Airway Mallampati Class: III TM Dist: >3cm Neck ROM: Full Loose/Missing/Broken Teeth: No Heart: rrr Lungs: clear Assessment and Plan Final Anesthetic Review Family History of Problems with Anesthesia: No History of Problems with Anesthesia: No NPO: Yes ASA Class: II Final Preanesthetic Review: No Changes in Pt Med Stat, Meds/Allgs Chart Reviewed, Consent Obtained/Reviewed and Anes Risks/Benef Reviewed Patient Risk: Intermediate Procedure Risk: Low Anesthetic Plan Disposition: Standard PACU
--- NOTE | ~2021-08-28 | FL_ITS ---
EXAMINATION: XR FLUOROSCOPY WITH IMAGES CLINICAL INFORMATION: Spinal stimulator trial COMPARISON: None. TECHNIQUE: Fluoroscopy performed by the Dr. Tanvir Agarwal. Fluoroscopy time: 2.1 minutes DAP: 26.0 mGycm2 Images: 3 FINDINGS: There are 3 digital images obtained of thoracic spine with 2 spinal stimulator electrodes along the anterior pleural space in the mid thoracic spine. Visualized bones are grossly unremarkable except for moderate spondylosis right mid thoracic spine. FL/FL guidance in OR IMPRESSION: Fluoroscopy guidance was provided for spinal stimulator insertion to Dr. Agarwal
[2021-08-28 06:13] VITALS: BMI 38.0
[2021-08-28 06:29] VITALS: BP 130/79; PULSE 83; RESP 16; TEMP 36.4; O2SAT 98
[2021-08-28 06:40] LABS: Glucose, Whole Blood 131 mg/dL (60-115)
[2021-08-28] MEDS: Lactated Ringers 1,000 ML 100 ML IVCONT (06:47)
--- NOTE | 2021-08-28 07:04 | MHC.SHP ---
Pre-Procedural Eval Section A Date of Service: 08/28/21 The patient is an INPATIENT: No Changes since office visit: Yes Patient answered all questions The History & Physical has been completed within 30 days and I have reviewed it.: No Section B Chief Complaint: Postlaminectomy syndrome, Details of Present Illness: as above Relevant Family History (Specify if Yes): No Relevant Social History: None Present Medications: see Short Stay Collaborative assessment Medical History: No relevant PMH History of Previous Operations: No relevant previous surgery Allergies: Allergies Allergy/AdvReac Type Severity Reaction Status Date / Time Penicillins [PENICILLINS] Allergy Unknown as a child Verified 08/25/21 14:33 etanercept [From Enbrel] Allergy Rash Verified 08/25/21 14:33 Review of Systems Sugical H&P ROS: Negative: Cardiovascular, Respiratory, Neurological, Psychiatric, Hem-Onc, Allergic/Immunologic, Gastrointestinal, Genitourinary, Musculoskeletal, Integumentary, Endocrine and Eyes/Ears/Nose/Throat and Yes, Specify: Constitution (obesity) Exam Surgical H&P Exam: Normal: HEENT, Normal: Heart, Normal: Lungs, Normal: Extremities, Normal: Skin and Normal: Neurological and Significant Findings: Abdomen (enlarged due to ia fat) Plan I have reviewed the history and physical and performed a pertinent physical examination on my patient. No changes have occurred unless specified.
[2021-08-28 09:07] VITALS: BP 125/83; PULSE 88; RESP 16; TEMP 37.3; O2SAT 96
--- NOTE | 2021-08-28 09:12 | PM.OP ---
Brief Operative Note Date of Service: 08/28/21 Pre-op diagnosis: postlaminectomy syndrome Post-op diagnosis: same Procedure: trial of [employer] SCS Implants: none permanent Surgeon: Tanvir Lovelace MD Anesthesia: GETA Was an Senior Software Development Engineer used for this Procedure?: No Estimated blood loss (mL): 0 Pathology: none sent Condition: stable Disposition: PACU
--- NOTE | 2021-08-28 09:13 | W.PM.OPN ---
Operative Note Operative Note Date of Service: 08/28/21 Narrative: Amando Edwardis very pleasant 51 years old gentleman who came today into the operating room for trial of spinal cord stimulator for the treatment of post laminectomy syndrome. Preoperatively patient received ? cefazolin 2 g approximately 10 minutes before the procedure. After obtaining informed consent the patient was brought to the operating room, HE was positioned prone on operating table, [employer] monitors were applied and the patient was moderately sedated.? ?Time-out was performed delineating correct site, side, the nature of the procedure, patient's allergy, preoperative antibiotic if needed.? All operating room staff was participating in OR time-out procedure. Patient's entire back was prepped with DuraPrep twice and draped with full body fenestrated laparoscopy drape.? Sterilely draped C-arm was brought over operating field and square picture of the ? T12-L1 L2 and L3 vertebrae? were demonstrated on the screen.? ?Attention FIRST? was concentrated on the L1-L2 epidural interspace.? The location of the projection of the right pedicle center of the L3 vertebra was found on the skin using C-arm.? This location was injected with mixture of lidocaine 2% and Marcaine 0.5% 5 cc.? After that 11 blade was used to make a valeria on the skin.? 10 cm 14 gauge? introducer epidural needle was inserted through the valeria and advanced to? L1-L2 epidural interspace.? The advancement of the needle was performed on anterior posterior and lateral views.?Loss of resistance to air? technique were used to locate epidural space., epidural lead was inserted through the needle and it was advanced to?? T7 level slightly right to the midline.? ? .? After that? the location of the projection of the LEFT pedicle center of the? L3 vertebra was found on the skin using C-arm.? This location was injected with mixture of lidocaine 2% and Marcaine 0.5% 5 cc.? After that 11 blade was used to make a valeria on the skin.? 10 cm 14 gauge introducer epidural needle was inserted through the valeria and advanced to L1- L2 epidural interspace.? The advancement of the needle was performed on anterior posterior and lateral views.? Guitar wire and loss of resistance technique were used to locate epidural space.? When guitar wire was spread in the epidural fashion, epidural lead was inserted through the needle and advanced to the middle of? T7 epidural interspace slightly? left to the existing electrode. Impedance was checked and was satisfactory . at this moment patient was awaken of the epidural leads were connected to the testing wires and trial stimulation was performed.? Patient was reporting that the both leads produce the stimulation at the right side. The right positioned lead then was taken down and it was moved up again across the existing lead inserted through the left side to be positioned to the left of the existing left inserderd lead. Impedance was checked again and it was found to be satisfactory. Now the patient was reporting the stimulation corresponding to the laterality of the epidural leads position. Posterior placement was verified by lateral x-ray The stimulation was found to be corresponding to the patient's pain. The needles were withdrawn, the stylette wires were removed from the epidural leads.? The anchoring devices were dislodged on the leads and advanced to the level of the skin.? The anchoring devices were sutured with two 0-0 ?Silk sutures per each anchor to the skin of the patient. The central fixation screw of each anchor was rotated until three clicks were heard. The leads were connected to testing device.? Bacitracin ointment was applied to the entrance point of bilateral wires.? Sterile dressing was applied to the patient's back.? The testing device was also glued to the patient's back.? the patient tolerated procedure well he was awaken and taken outside of the operating room to recovery room. he recovered uneventfully.
[2021-08-28 09:22] VITALS: BP 124/77; PULSE 81; RESP 18; O2SAT 97
[2021-08-28 09:37] VITALS: BP 122/72; PULSE 78; RESP 18; TEMP 36.3; O2SAT 97
== END 2021-08-28 11:00 | disposition home or self-care (01) ==
PROVIDERS: PCP Internal Medicine; Visit Provider Anesthesiology
PROC: (CPT 63650; principal; 2021-08-28 07:30)
DX: M43.06 Spondylolysis, lumbar region (principal); M96.1 Postlaminectomy syndrome, not elsewhere classified; M54.16 Radiculopathy, lumbar region; M54.50 Low back pain, unspecified; M62.830 Muscle spasm of back; M13.88 Other specified arthritis, other site; I10 Essential (primary) hypertension; L40.50 Arthropathic psoriasis, unspecified; E07.9 Disorder of thyroid, unspecified; M10.9 Gout, unspecified; E11.9 Type 2 diabetes mellitus without complications; Z79.84 Long term (current) use of oral hypoglycemic drugs; Z79.899 Other long term (current) drug therapy; Z88.0 Allergy status to penicillin; Z88.8 Allergy status to other drugs, medicaments and biological substances; Z96.642 Presence of left artificial hip joint
CPT/HCPCS: 63650 ×2; 82947; C1713; C1778; J2250; J2795

== ENCOUNTER → 2021-09-03 09:28 | Outpatient (BNVA) | payer MEDICAID, SELFPAY | PROVIDERS: PCP Internal Medicine; Visit Provider Anesthesiology | DX: M43.06 Spondylolysis, lumbar region (principal); M54.16 Radiculopathy, lumbar region; M96.1 Postlaminectomy syndrome, not elsewhere classified; M62.830 Muscle spasm of back | CPT/HCPCS: 99212 ==

== ENCOUNTER → 2021-09-14 09:45 | Outpatient (BNVA) | payer MEDICAID, SELFPAY | PROVIDERS: PCP Internal Medicine; Visit Provider Anesthesiology | DX: M43.06 Spondylolysis, lumbar region (principal); M96.1 Postlaminectomy syndrome, not elsewhere classified; M54.16 Radiculopathy, lumbar region; M62.830 Muscle spasm of back; M46.1 Sacroiliitis, not elsewhere classified; M53.3 Sacrococcygeal disorders, not elsewhere classified | CPT/HCPCS: 99212 ==

== ENCOUNTER 2021-09-23 09:44 | Day surgery (SDC) | payer MEDICAID, SELFPAY ==
--- NOTE | 2021-09-22 09:00 | P.CONAN_ITS ---
Documented by User: Fatou Nguyễn NP 09/22/21 09:02 HPI - Anesthesia Eval Consult details Narrative: 51yo M for Excision Mass of breast s/p spinal stim trial 08/28/21 with MAC PMFSH Active Problems Active Problems: All Active Problems (Updated 09/14/21 @ 12:57 by Tanvir Lovelace MD) Sacroiliac joint pain (Acute) Sacroiliitis (Acute) Breast mass, right (Acute) Muscle spasm of back (Acute) Lumbar radiculopathy (Acute) Lumbar spondylolysis (Acute) Lumbar post-laminectomy syndrome (Acute) Psoriatic arthritis (Acute) Inflammatory arthritis (Acute) Gout (Acute) Left wrist pain (Acute) Past Medical History Medical History (Updated 09/22/21 @ 09:00 by Fatou Nguyễn NP) Carpal tunnel syndrome Diabetes Gout HTN (hypertension) Lumbar post-laminectomy syndrome Lumbar spondylolysis Psoriatic arthritis Thyroid disease Family History Family History Mother HTN (hypertension) Father Hypothyroidism Family history of problems with anesthesia: No Surgical History Surgical History History of carpal tunnel release History of total left hip replacement Hx of thumb surgery History of Problems with Anesthesia: No Social History Social History Alcohol intake: current Alcohol intake frequency: holidays/special occasions only Patient Tobacco Use Status: Never used Tobacco e-Cigarette/Vaping Use: Never Used Second Hand Smoke Exposure: No Meds Allergies Allergy/AdvReac Type Severity Reaction Status Date / Time Penicillins [PENICILLINS] Allergy Unknown as a child Verified 09/14/21 10:27 etanercept [From Enbrel] Allergy Rash Verified 09/14/21 10:27 Home Medications Medication Instructions Recorded Confirmed Last Taken Type atorvastatin 80 mg tablet 80 mg PO DAILY 05/23/20 08/27/21 Unknown History levothyroxine 50 mcg capsule 50 mcg PO DAILY 05/23/20 08/27/21 Unknown History multivitamin 1 tab PO DAILY 05/23/20 08/27/21 Unknown History sertraline 100 mg tablet 100 mg PO DAILY 05/23/20 08/27/21 Unknown History lisinopril 40 mg tablet 40 mg PO DAILY 08/12/20 08/27/21 Unknown History allopurinol 300 mg tablet 600 mg PO BID gout 05/25/21 08/27/21 Unknown History nortriptyline 50 mg capsule 50 mg PO BEDTIME 05/25/21 08/27/21 Unknown History amlodipine 10 mg tablet 10 mg PO DAILY 09/03/21 Unknown History ibuprofen 800 mg tablet 800 mg PO TID 09/03/21 Unknown History metformin 1,000 mg tablet 1,000 mg PO BID 09/03/21 Unknown History metronidazole 0.75 % topical cream appl topical QAM 09/03/21 Unknown History minocycline 100 mg capsule 100 mg PO DAILY 09/03/21 Unknown History rosuvastatin 40 mg tablet 40 mg PO DAILY 09/03/21 Unknown History Exam Exam Date and Time: September 22, 2021 0900 Pertinent Lab Results Pertinent Lab Results: Laboratory Tests 04/01/21 07/02/21 07:38 06:40 WBC 6.8 Hgb 13.7 L Hct 41.5 L Plt Count 293 Sodium 141 Potassium 4.7 Chloride 104 Carbon Dioxide 27 BUN 16 Creatinine 1.11 Assessment and Plan Assessment Anesthesia Assessment: Chart Reviewed Final Anesthetic Review Family History of Problems with Anesthesia: No History of Problems with Anesthesia: No Documented by User: Owen Kolb MD 09/23/21 11:08 [facility] Past Medical History Medical History (Updated 09/22/21 @ 09:00 by Fatou Nguyễn NP) Carpal tunnel syndrome Diabetes Gout HTN (hypertension) Lumbar post-laminectomy syndrome Lumbar spondylolysis Psoriatic arthritis Thyroid disease Family History Family History Mother HTN (hypertension) Father Hypothyroidism Surgical History Surgical History History of carpal tunnel release History of total left hip replacement Hx of thumb surgery Social History Social History Alcohol intake: current Alcohol intake frequency: holidays/special occasions only Patient Tobacco Use Status: Never used Tobacco e-Cigarette/Vaping Use: Never Used Second Hand Smoke Exposure: No Meds Allergies Allergy/AdvReac Type Severity Reaction Status Date / Time Penicillins [PENICILLINS] Allergy Unknown as a child Verified 09/14/21 10:27 etanercept [From Enbrel] Allergy Rash Verified 09/14/21 10:27 Home Medications Medication Instructions Recorded Confirmed Last Taken Type atorvastatin 80 mg tablet 80 mg PO DAILY 05/23/20 08/27/21 Unknown History levothyroxine 50 mcg capsule 50 mcg PO DAILY 05/23/20 08/27/21 Unknown History multivitamin 1 tab PO DAILY 05/23/20 08/27/21 Unknown History sertraline 100 mg tablet 100 mg PO DAILY 05/23/20 08/27/21 Unknown History lisinopril 40 mg tablet 40 mg PO DAILY 08/12/20 08/27/21 Unknown History allopurinol 300 mg tablet 600 mg PO BID gout 05/25/21 08/27/21 Unknown History nortriptyline 50 mg capsule 50 mg PO BEDTIME 05/25/21 08/27/21 Unknown History amlodipine 10 mg tablet 10 mg PO DAILY 09/03/21 Unknown History ibuprofen 800 mg tablet 800 mg PO TID 09/03/21 Unknown History metformin 1,000 mg tablet 1,000 mg PO BID 09/03/21 Unknown History metronidazole 0.75 % topical cream appl topical QAM 09/03/21 Unknown History minocycline 100 mg capsule 100 mg PO DAILY 09/03/21 Unknown History rosuvastatin 40 mg tablet 40 mg PO DAILY 09/03/21 Unknown History Exam Airway Mallampati Class: II TM Dist: >3cm Neck ROM: Full Loose/Missing/Broken Teeth: No Heart: rrr Lungs: clear Assessment and Plan Final Anesthetic Review NPO: Yes ASA Class: III Final Preanesthetic Review: No Changes in Pt Med Stat, Meds/Allgs Chart Reviewed, Consent Obtained/Reviewed and Anes Risks/Benef Reviewed Patient Risk: Intermediate Procedure Risk: Low Anesthetic Plan Anesthetic Plan: GA Disposition: Standard PACU
[2021-09-23] VITALS (10 sets, daily range): BP systolic 121–153; BP diastolic 67–93; PULSE 82–102; RESP 16–20; TEMP 36.4–37.2; O2SAT 94–99; BMI 38.0
[2021-09-23 10:58] LABS: Glucose, Whole Blood 120 mg/dL (60-115)
[2021-09-23] MEDS: Lactated Ringers 1,000 ML 100 ML IVCONT (11:03)
--- NOTE | 2021-09-23 12:26 | MHC.SHP ---
Pre-Procedural Eval Section A Date of Service: 09/23/21 The patient is an INPATIENT: No Changes since office visit: Yes Patient answered all questions; No Cold of Flu in the past 2 weeks, No New Medical Problems and No Changes in Medication The History & Physical has been completed within 30 days and I have reviewed it.: Yes Section B Chief Complaint: lump right breast Allergies: Allergies Allergy/AdvReac Type Severity Reaction Status Date / Time Penicillins [PENICILLINS] Allergy Unknown as a child Verified 09/14/21 10:27 etanercept [From Enbrel] Allergy Rash Verified 09/14/21 10:27 Plan Diagnosis/Plan: Unchanged I have reviewed the history and physical and performed a pertinent physical examination on my patient. No changes have occurred unless specified.
--- NOTE | 2021-09-23 13:46 | W.PM.OPN ---
Operative Note Operative Note Date of Service: 09/23/21 Narrative: Preoperative diagnosis: Right breast mass Postoperative diagnosis: same Procedure: excision of right breast masses Surgeon: Rob Elias MD Language Instructor: no position Anesthesia: general LMA Indications for procedure: 51-year-old male patient presenting with mass of the right breast which is causing pain. On examination the mass measures approximately 5 cm in diameter is tender to palpation. No overlying skin changes are appreciated however. Operative findings: Mass right breast Specimen: mass right breast Estimated blood loss: 10 mL Complications: none Procedure details: patient was brought to the OR placed in a supine position. After administering general anesthesia the patient's right breast was prepped with ChloraPrep and draped in a sterile fashion. A surgical time-out was called the consent confirmed. Patient received preoperative antibiotics and Venodyne boots were in place. Local anesthesia consisting of 0.5% Sensorcaine was infiltrated a curvilinear fashion below the areola in the 6 o'clock position of the right breast. Incision was then made with a scalpel carried out through subcutaneous tissue. Superior inferior skin flaps were then created. Dissection was then continued over the palpable mass to interrupt the ductal tissue. Dissection was continued more superiorly above the mass and posterior around the Posterior aspect of the palpable mass. This was excised off the chest wall sent to pathology for further examination. After assuring adequate hemostasis the abdomen was irrigated with saline solution and suctioned dry. Subcutaneous tissue and dermis were then reapproximated using interrupted 3-0 Polysorb sutures. Skin was closed using a running subcuticular 4-0 Polysorb suture. Steri-Strips, 2 x 2 gauze and Tegaderm were then applied. The patient tolerated the procedure well. Sponge, instrument, and needle counts reported as correct. The patient was transferred to PACU in stable condition.
[2021-09-23] MEDS: Acetaminophen 325 MG TABLET 650 MG PO (14:15)
[2021-09-23] MEDS: oxyCODONE HCl Immed Release 5 MG TABLET PO (14:15)
[2021-09-23] MEDS: fentaNYL citrate/PF 100 MCG/2 ML VIAL 25 MCG IVPUSH ×3 (14:15→14:25)
== END 2021-09-23 16:01 | disposition home or self-care (01) ==
PROVIDERS: PCP Internal Medicine; Visit Provider Surgery
PROC: (CPT 19120; principal; 2021-09-23 12:00)
DX: N62 Hypertrophy of breast (principal); I10 Essential (primary) hypertension; E07.9 Disorder of thyroid, unspecified; E11.9 Type 2 diabetes mellitus without complications; Z79.84 Long term (current) use of oral hypoglycemic drugs; Z79.899 Other long term (current) drug therapy; Z88.0 Allergy status to penicillin; Z88.8 Allergy status to other drugs, medicaments and biological substances; Z96.642 Presence of left artificial hip joint
CPT/HCPCS: 19120; 82947; 88305; 88307; J1100; J2250; J2405; J2795; J3010; J3370

== ENCOUNTER 2021-09-29 06:12 | Outpatient (REF) | payer MEDICAID, SELFPAY ==
--- NOTE | ~2021-09-29 | FL_ITS ---
EXAMINATION: XR FLUOROSCOPY WITH IMAGES CLINICAL INFORMATION: M53.3 - Sacrococcygeal disorders, not elsewhere classified COMPARISON: Radiographs lumbar spine 05/25/2021 TECHNIQUE: Fluoroscopy performed by Dr. Tanvir Lovelace. Fluoroscopy time: 0.4 minutes. Cumulative Dose: 9.83 mGy. DAP: 2.68 Gy-cm2. Images: 2. FINDINGS: Spinal needle overlies bilateral lower SI joints. There is contrast in the periarticular soft tissues with probable early intra-articular contrast. No vasculature communication appreciated. FL/FL guidance in treatment room IMPRESSION: Fluoroscopy for pain management procedure.
== END 2021-09-29 06:13 | disposition home or self-care (01) ==
LOC: HO.RADIR 06:12
PROVIDERS: Visit Provider Anesthesiology
DX: M53.3 Sacrococcygeal disorders, not elsewhere classified (principal); M43.06 Spondylolysis, lumbar region; M96.1 Postlaminectomy syndrome, not elsewhere classified; M54.16 Radiculopathy, lumbar region; M62.830 Muscle spasm of back; M46.1 Sacroiliitis, not elsewhere classified
CPT/HCPCS: 27096; J3300

== ENCOUNTER 2021-10-14 06:25 | Outpatient (REF) | payer MEDICAID, SELFPAY ==
[2021-10-14 06:37] LABS: MANUAL DIFF FLAG NO
[2021-10-14 07:51] LABS: Basophils Percent Auto 0.4 % (0-2); Eosinophils Absolute Auto 0.4 X10*3/uL (0.0-0.4); Eosinophils Percent Auto 6.1 % (0-4); Hematocrit 40.1 % (42.0-52.0); Hemoglobin 13.6 g/dl (14.0-18.0); Imm Gran Abs Auto 0.04 X10*3/uL (0.00-0.03); Imm Gran Pct Auto 0.6 % (0.0-0.4); Lymphocytes Absolute Auto 1.9 X10*3/uL (1.2-4.9); Lymphocytes Percent Auto 27.5 % (20-40); Mean Corpuscular HGB Conc 33.9 g/dl (31.0-36.0); Mean Corpuscular Hemoglobin 30.1 pg (27.0-33.0); Mean Corpuscular Volume 88.7 fL (80.0-98.0); Mean Platelet Volume 11.1 fL (9.4-12.4); Monocytes Absolute Auto 0.5 X10*3/uL (0.1-1.2); Monocytes Percent Auto 7.4 % (2-11); Neutrophils Absolute Auto 4.1 x10*3/uL (2.0-8.3); Platelet Count 238 X10*3/uL (160-400); Red Blood Count 4.52 X10*6/uL (4.60-5.80)
[2021-10-14 08:05] LABS: Alanine Aminotransferase 42 U/L (0-40); Albumin Level 4.6 g/dL (3.5-5.0); Alkaline Phosphatase 98 U/L (39-117); Anion Gap 19 (12-20); Aspartate Amino Transferase 29 U/L (5-37); Bilirubin Total 0.8 mg/dL (0.0-1.0); Blood Urea Nitrogen 12 mg/dL (9-16); Calcium 9.6 mg/dL (8.4-10.2); Carbon Dioxide 24 mmol/L (22-29); Chloride 100 mmol/L (96-108); Cholesterol 190 mg/dL; Estimated Glomerular Filt Rate > 60; Glucose Random 155 mg/dL (60-115); HDL Cholesterol 39 mg/dL; Potassium 4.8 mmol/L (3.3-5.1); Sodium 138 mmol/L (135-145); Total Protein 7.6 g/dL (6.5-8.0); Triglycerides 461 mg/dL
[2021-10-14 08:27] LABS: Prostate Specific Antigen 0.66 ng/mL (<0.05-4.0); Thyroid Stimulating Hormone 1.99 uIU/mL (0.32-4.0)
[2021-10-14 09:16] LABS: Creatinine Urine 93.47 mg/dL
== END 2021-10-14 06:26 | disposition home or self-care (01) ==
LOC: HO.LAB 06:25
PROVIDERS: PCP Internal Medicine; Visit Provider Internal Medicine
DX: E11.22 Type 2 diabetes mellitus with diabetic chronic kidney disease (principal); I12.9 Hypertensive chronic kidney disease with stage 1 through stage 4 chronic kidney disease, or unspecified chronic kidney disease; N18.9 Chronic kidney disease, unspecified; E03.8 Other specified hypothyroidism; M96.1 Postlaminectomy syndrome, not elsewhere classified
CPT/HCPCS: 36415; 80053; 80061; 82043; 84153; 84443; 85025

== ENCOUNTER → 2021-12-16 14:18 | Outpatient (BNVA) | payer MEDICAID, SELFPAY | PROVIDERS: PCP Internal Medicine; Visit Provider Anesthesiology | DX: M43.06 Spondylolysis, lumbar region (principal); M96.1 Postlaminectomy syndrome, not elsewhere classified; M54.16 Radiculopathy, lumbar region; M62.830 Muscle spasm of back; M46.1 Sacroiliitis, not elsewhere classified; M53.3 Sacrococcygeal disorders, not elsewhere classified | CPT/HCPCS: 99212 ==

== ENCOUNTER 2021-12-31 10:00 | Outpatient (REF) | payer MEDICAID, SELFPAY ==
[2021-12-31 10:49] LABS: Alanine Aminotransferase 29 U/L (0-40); Alkaline Phosphatase 90 U/L (39-117); Anion Gap 17 (12-20); Aspartate Amino Transferase 21 U/L (5-37); Bilirubin Total 0.8 mg/dL (0.0-1.0); Blood Urea Nitrogen 19 mg/dL (9-16); Calcium 10.3 mg/dL (8.4-10.2); Carbon Dioxide 26 mmol/L (22-29); Chloride 100 mmol/L (96-108); Cholesterol 131 mg/dL; Estimated Glomerular Filt Rate > 60; Glucose Random 141 mg/dL (60-115); HDL Cholesterol 47 mg/dL; LDL Cholesterol Calculated 50 mg/dl; Potassium 5.2 mmol/L (3.3-5.1); Sodium 138 mmol/L (135-145); Total Protein 7.8 g/dL (6.5-8.0); Triglycerides 174 mg/dL
[2021-12-31 11:06] LABS: Estimated Average Glucose 163 mg/dL; Hemoglobin A1c % 7.3 %
== END 2021-12-31 10:01 | disposition home or self-care (01) ==
LOC: HO.LAB 10:00
PROVIDERS: PCP Internal Medicine; Visit Provider Internal Medicine
DX: E03.8 Other specified hypothyroidism (principal); E11.9 Type 2 diabetes mellitus without complications; E78.1 Pure hyperglyceridemia; I10 Essential (primary) hypertension
CPT/HCPCS: 36415; 80053; 80061; 83036

== ENCOUNTER 2022-04-05 07:17 | Outpatient (REF) | payer MEDICAID, SELFPAY ==
[2022-04-05 07:59] LABS: Estimated Average Glucose 140 mg/dL; Hemoglobin A1c % 6.5 %
[2022-04-05 08:15] LABS: Alanine Aminotransferase 53 U/L (0-40); Albumin Level 4.5 g/dL (3.5-5.0); Alkaline Phosphatase 91 U/L (39-117); Anion Gap 17 (12-20); Aspartate Amino Transferase 42 U/L (5-37); Bilirubin Total 0.5 mg/dL (0.0-1.0); Blood Urea Nitrogen 14 mg/dL (9-16); Calcium 9.5 mg/dL (8.4-10.2); Carbon Dioxide 24 mmol/L (22-29); Chloride 107 mmol/L (96-108); Estimated Glomerular Filt Rate > 60; Glucose Random 139 mg/dL (60-115); Potassium 5.5 mmol/L (3.3-5.1); Sodium 142 mmol/L (135-145); Total Protein 6.9 g/dL (6.5-8.0)
== END 2022-04-05 07:18 | disposition home or self-care (01) ==
LOC: HO.LAB 07:17
PROVIDERS: PCP Internal Medicine; Visit Provider Internal Medicine
DX: E03.8 Other specified hypothyroidism (principal); E11.9 Type 2 diabetes mellitus without complications; I10 Essential (primary) hypertension; M96.1 Postlaminectomy syndrome, not elsewhere classified
CPT/HCPCS: 36415; 80053; 83036

== ENCOUNTER 2022-06-30 07:29 | Outpatient (REF) | payer MEDICAID, SELFPAY ==
[2022-06-30 08:32] LABS: Estimated Average Glucose 134 mg/dL; Hemoglobin A1c % 6.3 %
[2022-06-30 08:51] LABS: Alanine Aminotransferase 32 U/L (0-40); Albumin Level 4.7 g/dL (3.5-5.0); Alkaline Phosphatase 88 U/L (39-117); Anion Gap 13 (12-20); Aspartate Amino Transferase 26 U/L (5-37); Bilirubin Total 0.7 mg/dL (0.0-1.0); Blood Urea Nitrogen 21 mg/dL (9-16); Calcium 10.1 mg/dL (8.4-10.2); Carbon Dioxide 29 mmol/L (22-29); Chloride 104 mmol/L (96-108); Estimated Glomerular Filt Rate > 60; Glucose Random 110 mg/dL (60-115); Potassium 5.2 mmol/L (3.3-5.1); Sodium 141 mmol/L (135-145); Total Protein 7.5 g/dL (6.5-8.0)
[2022-06-30 09:08] LABS: Thyroid Stimulating Hormone 1.22 uIU/mL (0.32-4.0)
[2022-06-30 09:17] LABS: HBS Num1 0.16 mIU/mL (0-7.99); HBc Num1 0.06 S/CO (0.00-0.79); HBsAGNum1 0.26 S/CO (0.00-0.99); Hepatitis A Antibody IgM 0.49 Index (0-0.79); Hepatitis B Core Antibody Nonreactive (Nonreactive); Hepatitis B Surface Antigen Negative (Negative); ~HepC Num1 0.16 S/CO (0.00-0.79); ~Hepatitis A Antibody IgM Nonreactive (Nonreactive); ~Hepatitis B Surface Antibody NONREACTIVE (Nonreactive); ~Hepatitis C Antibody Nonreactive (Nonreactive)
== END 2022-06-30 07:30 | disposition home or self-care (01) ==
LOC: HO.LAB 07:29
PROVIDERS: PCP Internal Medicine; Visit Provider Internal Medicine
DX: E03.8 Other specified hypothyroidism (principal); E11.9 Type 2 diabetes mellitus without complications; I10 Essential (primary) hypertension; M70.62 Trochanteric bursitis, left hip
CPT/HCPCS: 36415; 80053; 83036; 84443; 86704; 86706; 86709; 86803; 87340

== ENCOUNTER 2022-10-16 07:46 | Outpatient (REF) | payer OTHER, SELFPAY ==
[2022-10-16 08:14] LABS: MANUAL DIFF FLAG NO
[2022-10-16 08:29] LABS: Basophils Absolute Auto 0.1 X10*3/uL (0.0-0.2); Basophils Percent Auto 0.9 % (0-2); Eosinophils Absolute Auto 0.3 X10*3/uL (0.0-0.4); Eosinophils Percent Auto 5.5 % (0-4); Hematocrit 40.7 % (42.0-52.0); Hemoglobin 13.8 g/dl (14.0-18.0); Imm Gran Abs Auto 0.03 X10*3/uL (0.00-0.03); Imm Gran Pct Auto 0.5 % (0.0-0.4); Lymphocytes Absolute Auto 1.9 X10*3/uL (1.2-4.9); Mean Corpuscular HGB Conc 33.9 g/dl (31.0-36.0); Mean Corpuscular Hemoglobin 30.4 pg (27.0-33.0); Mean Corpuscular Volume 89.6 fL (80.0-98.0); Mean Platelet Volume 10.3 fL (9.4-12.4); Monocytes Absolute Auto 0.4 X10*3/uL (0.1-1.2); Monocytes Percent Auto 7.1 % (2-11); Neutrophils Absolute Auto 2.8 x10*3/uL (2.0-8.3); Platelet Count 246 X10*3/uL (160-400); Red Blood Count 4.54 X10*6/uL (4.60-5.80); White Blood Count 5.5 X10*3/uL (4.8-10.8)
[2022-10-16 08:40] LABS: Estimated Average Glucose 117 mg/dL; Hemoglobin A1c % 5.7 % (<6.0)
[2022-10-16 09:06] LABS: Alanine Aminotransferase 33 U/L (0-40); Albumin Level 4.7 g/dL (3.5-5.0); Alkaline Phosphatase 77 U/L (39-117); Anion Gap 14 (12-20); Aspartate Amino Transferase 33 U/L (5-37); Bilirubin Total 0.6 mg/dL (0.0-1.0); Blood Urea Nitrogen 16 mg/dL (9-16); Calcium 9.7 mg/dL (8.4-10.2); Carbon Dioxide 27 mmol/L (22-29); Chloride 104 mmol/L (96-108); Cholesterol 198 mg/dL (<200); Estimated Glomerular Filt Rate > 60; Glucose Random 103 mg/dL (60-115); HDL Cholesterol 50 mg/dL (>40); LDL Cholesterol Calculated 96 mg/dL (<100); Potassium 4.5 mmol/L (3.3-5.1); Sodium 140 mmol/L (135-145); Triglycerides 260 mg/dL (<150); Uric Acid 9.6 mg/dL (3.4-7.0)
[2022-10-16 09:37] LABS: Prostate Specific Antigen Scr 1.22 ng/mL (<0.05-4.0); Vitamin B12 1293 pg/mL (200-900)
[2022-10-16 10:15] LABS: Creatinine Urine 79.52 mg/dL; Microalbum/Creatinine Ratio Ur 20.1 ug/mg cr (<30)
== END 2022-10-16 07:47 | disposition home or self-care (01) ==
LOC: HO.LAB 07:46
PROVIDERS: PCP Internal Medicine; Visit Provider Internal Medicine
DX: Z12.5 Encounter for screening for malignant neoplasm of prostate (principal); E03.8 Other specified hypothyroidism; E11.9 Type 2 diabetes mellitus without complications; E78.2 Mixed hyperlipidemia; I10 Essential (primary) hypertension; J30.1 Allergic rhinitis due to pollen; M10.9 Gout, unspecified
CPT/HCPCS: 36415; 80053; 80061; 82043; 82607; 83036; 84153; 84550; 85025

== ENCOUNTER 2023-02-11 07:56 | Outpatient (REF) | payer OTHER, SELFPAY ==
[2023-02-11 08:59] LABS: Estimated Average Glucose 134 mg/dL; Hemoglobin A1c % 6.3 % (<6.0)
[2023-02-11 09:34] LABS: Alanine Aminotransferase 61 U/L (0-40); Albumin Level 4.6 g/dL (3.5-5.0); Alkaline Phosphatase 79 U/L (39-117); Anion Gap 13 (12-20); Aspartate Amino Transferase 57 U/L (5-37); Bilirubin Total 0.4 mg/dL (0.0-1.0); Blood Urea Nitrogen 13 mg/dL (9-16); Calcium 9.1 mg/dL (8.4-10.2); Carbon Dioxide 27 mmol/L (22-29); Chloride 104 mmol/L (96-108); Estimated Glomerular Filt Rate > 60; Glucose Random 131 mg/dL (60-115); Potassium 4.1 mmol/L (3.3-5.1); Sodium 140 mmol/L (135-145); Uric Acid 9.6 mg/dL (3.4-7.0)
[2023-02-11 10:02] LABS: Thyroid Stimulating Hormone 1.43 uIU/mL (0.32-4.0)
== END 2023-02-11 07:57 | disposition home or self-care (01) ==
LOC: HO.LAB 07:56
PROVIDERS: PCP Internal Medicine; Visit Provider Internal Medicine
DX: Z00.00 Encounter for general adult medical examination without abnormal findings (principal); E11.40 Type 2 diabetes mellitus with diabetic neuropathy, unspecified; E79.0 Hyperuricemia without signs of inflammatory arthritis and tophaceous disease; I10 Essential (primary) hypertension
CPT/HCPCS: 36415; 80053; 83036; 84443; 84550

== ENCOUNTER 2023-04-05 06:25 | Emergency (ER) | payer OTHER, SELFPAY ==
[2023-04-05 07:02] VITALS: BP 163/92; PULSE 76; RESP 20; TEMP 36.5; O2SAT 98; BMI 35.3
[2023-04-05 08:40] VITALS: BP 155/89; PULSE 78; RESP 18; TEMP 36.6; O2SAT 99
--- NOTE | 2023-04-05 11:50 | ED_ITS ---
HPI - Extremity Problem General Chief complaint: Extremity Injury, Upper Stated complaint: neck pain Time Seen by Provider: 04/05/23 07:42 History of Present Illness HPI Narrative: Patient is a 52-year-old male complaining of neck pain that is bilateral. There is no bowel or urinary incontinence. There is no focal weakness. Patient is from home. No chest pain or diaphoresis. The pain is worse with movement. Patient lives heavy object at work. Denies any trauma. No head injury. No bowel urinary incontinence. Pain is worse with movement his head to the left or right. The symptoms been ongoing for about a week. No radiation to the hands or to the upper extremity. Tried to use muscle relaxant with only moderate relief. Related Data Home Medications Medication Instructions Recorded Confirmed atorvastatin 80 mg tablet 80 mg PO DAILY 05/23/20 10/15/21 levothyroxine 50 mcg capsule 50 mcg PO DAILY 05/23/20 10/15/21 multivitamin 1 tab PO DAILY 05/23/20 10/15/21 sertraline 100 mg tablet 100 mg PO DAILY 05/23/20 10/15/21 lisinopril 40 mg tablet 40 mg PO DAILY 08/12/20 10/15/21 allopurinol 300 mg tablet 600 mg PO BID gout 05/25/21 10/15/21 amlodipine 10 mg tablet 10 mg PO DAILY 09/03/21 10/15/21 metformin 1,000 mg tablet 1,000 mg PO BID 09/03/21 10/15/21 metronidazole 0.75 % topical cream appl topical QAM 09/03/21 10/15/21 rosuvastatin 40 mg tablet 40 mg PO DAILY 09/03/21 10/15/21 Previous Rx's Medication Instructions Recorded folic acid 1 mg tablet 1 mg PO DAILY #30 tabs 07/01/20 secukinumab 150 mg/mL subcutaneous 150 mg subcut Q4W #1 mL 02/27/21 pen injector (Cosentyx Pen) tizanidine 4 mg tablet 4 mg PO Q8H PRN muscle spasticity 02/19/22 30 days #90 tabs cyclobenzaprine 10 mg tablet 10 mg PO TID PRN pain #14 tabs 04/05/23 ibuprofen 400 mg tablet 400 mg PO Q6H PRN pain #20 tabs 04/05/23 Allergies Allergy/AdvReac Type Severity Reaction Status Date / Time Penicillins [PENICILLINS] Allergy Unknown as a child Verified 04/05/23 07:05 etanercept [From Enbrel] Allergy Rash Verified 04/05/23 07:05 Review of Systems Review of Systems: No fever no chills no chest pain or shortness breath Yes all other systems are reviewed and are negative [facility] Past Medical History Attestation statement: The following information was validated with the patient. Medical History Lumbar spondylolysis Lumbar post-laminectomy syndrome Psoriatic arthritis Gout Carpal tunnel syndrome Thyroid disease HTN (hypertension) Diabetes Surgical History History of breast lump/mass excision (09/23/21) Hx of thumb surgery History of carpal tunnel release History of total left hip replacement Family History Family History Mother HTN (hypertension) Father Hypothyroidism Social History Social History Alcohol intake: current Alcohol intake frequency: holidays/special occasions only Patient Tobacco Use Status: Never used Tobacco e-Cigarette/Vaping Use: Never Used Second Hand Smoke Exposure: No Advance Directives: No Advance Directives Information Provided: No Physical Exam Vital Signs: Vital Signs: Last Vital Signs Temp 97.8 F 04/05/23 08:40 Pulse 78 04/05/23 08:40 Resp 18 04/05/23 08:40 BP 155/89 H 04/05/23 08:40 Pulse Ox 99 04/05/23 08:40 O2 Del Method Room Air 04/05/23 08:40 BMI result Body Mass Index 35.3 Appearance: Alert. Oriented X3. No acute distress. Eyes: Pupils equal, round and reactive to light. ENT: Pharynx normal. Neck: Normal inspection. Neck supple. No lymph nodes noted. No crepitus. Positive paraspinal muscle tenderness elicited bilaterally in the neck. Pain worsened with turning his head to the left or right. CVS: Normal heart rate and rhythm. Pulses normal. Normal S1 and S2 Respiratory: No respiratory distress. Breath sounds normal. No Wheezing. No rales Abdomen: Soft and nontender. No rigidity. No distention. good BS x4 Skin: Skin warm and dry. Normal skin color. Normal skin turgor. Extremities: No lower extremity edema. Neurovascular intact to all extremities. No Lacerations. No Rash Neuro: Oriented X 3. No motor deficit. No sensory deficit. Moving all extermities. No slurred speech Medical Decision Making Medical Decision Making MDM Narrative: Patient has no focal weakness. No bowel urinary issues. No signs of cord compression. Attempted to use muscle relaxant with only moderate relief. Will have patient take Motrin during the day. Patient's symptom and history not consistent with meningitis is has been ongoing for a week there has no fever. Is neck is supple. Will discharge patient home. Close follow-up on an outpatient basis. Differential Diagnosis Differential Diagnoses: The differential diagnosis associated with the presentation includes Cord compression, cervical radiculopathy, torticollis, meningitis Admission/Observation Consideration of admission/observation: Escalation of care including admission/observation considered Patient's symptom improving Prescription Management I considered prescription management with: Pain Medication A prescribed patient Motrin for pain Discharge Plan Discharge Clinical Impression: Torticollis Patient Disposition: Home, Self-Care Instructions: Spasmodic Torticollis (ED) Prescriptions: New cyclobenzaprine 10 mg tablet 10 mg PO TID PRN (Reason: pain) Qty: 14 0RF ibuprofen 400 mg tablet 400 mg PO Q6H PRN (Reason: pain) Qty: 20 0RF No Action Cosentyx Pen 150 mg/mL pen injector 150 mg subcut Q4W Qty: 1 3RF tizanidine 4 mg tablet 4 mg PO Q8H PRN (Reason: muscle spasticity) 30 Days Qty: 90 8RF atorvastatin 80 mg tablet 80 mg PO DAILY levothyroxine 50 mcg capsule 50 mcg PO DAILY sertraline 100 mg tablet 100 mg PO DAILY multivitamin Tablet 1 tab PO DAILY folic acid 1 mg tablet 1 mg PO DAILY Qty: 30 2RF lisinopril 40 mg tablet 40 mg PO DAILY allopurinol 300 mg tablet 600 mg PO BID metronidazole 0.75 % cream topical QAM metformin 1,000 mg tablet 1,000 mg PO BID rosuvastatin 40 mg tablet 40 mg PO DAILY amlodipine 10 mg tablet 10 mg PO DAILY Stand Alone Forms: Work/School Release
== END 2023-04-05 13:02 | disposition home or self-care (01) ==
PROVIDERS: Emergency Provider Emergency Medicine Emergency Medical Services; PCP Internal Medicine
DX: M43.6 Torticollis (principal); Z79.899 Other long term (current) drug therapy
CPT/HCPCS: 99282; 99283

== ENCOUNTER 2023-05-06 06:34 | Outpatient (REF) | payer OTHER, SELFPAY ==
[2023-05-06 07:18] LABS: Cholesterol 173 mg/dL (<200); HDL Cholesterol 37 mg/dL (>40); LDL Cholesterol Calculated 85 mg/dL (<100); Triglycerides 255 mg/dL (<150)
== END 2023-05-06 06:35 | disposition home or self-care (01) ==
LOC: HO.LAB 06:34
PROVIDERS: PCP Internal Medicine; Visit Provider Internal Medicine
DX: E11.40 Type 2 diabetes mellitus with diabetic neuropathy, unspecified (principal); E78.00 Pure hypercholesterolemia, unspecified; I10 Essential (primary) hypertension; E79.0 Hyperuricemia without signs of inflammatory arthritis and tophaceous disease; R74.01 Elevation of levels of liver transaminase levels
CPT/HCPCS: 36415; 80061

== ENCOUNTER 2023-05-17 12:44 | Outpatient (AMB) | payer OTHER, SELFPAY ==
--- NOTE | 2023-05-17 12:44 | MHC.OFFVIS ---
Intake Vital Signs 05/17/23 12:45 Height 5 ft 8 in Weight 220 lb 7.396 oz BMI 33.5 BP 144/79 H Blood Pressure Location Lt brachial Position Sitting Pulse 104 H Intake Visit Reasons: Colonoscopy Screening Intake Note: Amando presents in the office as a new patient colonoscopy screening. CC: The other day he had a strong pain in his epigastric region that came with diarrhea and vomiting. Allergies Penicillins [PENICILLINS] Allergy (Unknown, Verified 05/17/23 12:51) as a child etanercept [From Enbrel] Allergy (Verified 05/17/23 12:51) Rash Medication List - Last Reconciled 05/17/23 by Ellen Jackson PA-C allopurinol 600 mg PO BID amlodipine 10 mg PO DAILY atorvastatin 80 mg PO DAILY cyclobenzaprine 10 mg PO TID PRN folic acid 1 mg PO DAILY ibuprofen 400 mg PO Q6H PRN levothyroxine 50 mcg PO DAILY lisinopril 40 mg PO DAILY loratadine 10 mg PO DAILY metformin 1,000 mg PO BID metronidazole 0.75% appl topical QAM multivitamin 1 tab PO DAILY sertraline 100 mg PO DAILY tizanidine 4 mg PO Q8H PRN 30 days HPI HPI Comments History of Present Illness Details A 53 y/o male rereferred for screening colonoscopy- He had a colonoscopy 2019- Dr Young-sure why he needs to repeat-this has caused him some anxiety After review of chart- shows inadequate prep Bowel are normal-he does not typically get constipated Appetite good He has no other GI or general complaints No nausea, vomiting, hematemesis, hematochezia fever or chills Works full-time Takes tizanidine q.h.s. for hip pain [facility] Medical History (Updated 05/17/23 @ 13:41 by Ellen Jackson PA-C) Lumbar spondylolysis Lumbar post-laminectomy syndrome Psoriatic arthritis Gout Carpal tunnel syndrome Thyroid disease HTN (hypertension) Diabetes Surgical History Hx of colonoscopy History of breast lump/mass excision (09/23/21) Hx of thumb surgery History of carpal tunnel release History of total left hip replacement Family History Mother HTN (hypertension) Father Hypothyroidism Prostate cancer Social History Alcohol intake: current Alcohol intake frequency: holidays/special occasions only Patient Tobacco Use Status: Never used Tobacco e-Cigarette/Vaping Use: Never Used Second Hand Smoke Exposure: No Review of Systems Const All systems reviewed & are unremarkable except as noted in HPI and below Card Denies chest pain, Denies chest pain at rest, Denies chest pain with activity, Denies diaphoresis, Reports rapid heart rate (Intermittent associates to anxiety), Denies irregular heart rhythm, Denies lightheadedness, Denies radiating jaw, neck or arm pain, Denies dyspnea and Denies dyspnea on exertion Resp Denies dyspnea and Denies dyspnea on exertion GI Denies abdominal pain, Denies hematochezia, Denies change in bowel habits, Denies constipation, Denies heartburn, Denies nausea and Denies vomiting Musc Reports arthralgias Physical Exam Vital Signs: Last Vital Signs Pulse 104 H 05/17/23 12:45 BP 144/79 H 05/17/23 12:45 BMI result Body Mass Index 33.5 Resp Effort & Inspection: normal respiratory effort and able to speak in complete sentences Auscultation: clear to auscultation bilaterally, no rales, no rhonchi and no wheezes Cardio Rate: tachycardic (May) Rhythm: regular rhythm and regular rhythm Heart sounds: S1 normal heart sound present and S2 normal heart sound present GI Palpation (GI): Soft to palpation and nontender Auscultation: normal bowel sounds Skin General skin exam: erythema (nose/ cheek) Psych Appearance: grossly normal and well kempt Mental Status: mental status grossly normal Speech and movement: Normal speech and movement present and Clear speech present Affect: normal affect Attitude: cooperative Thought process: Normal thought process present Thought content: Normal thought content present Insight: Good insight present (Psych) Judgement: Good judgement present (Psych) Assessment & Plan Assessment & Plan (1) Encounter for screening colonoscopy: Comment: P/E-a MI 104-regular rate, he associates to anxiety however has PCP appointment tomorrow-he has not had any other symptoms Code(s): Z12.11 - Encounter for screening for malignant neoplasm of colon Plan: Colonoscopy Plan Colonoscopy screen MG prep Miralax QD for 1 wk prior to prep day Omit metformin- day before No DM meds morning of procedure Orders: Orders Colonoscopy - GI Use Only Today Z12.11 - Encounter for screening for malignant neoplasm of colon Medications: New polyethylene glycol 3350 (Miralax) Take as directed by mouth the day before your procedure. 238 grams PO ONCE 1 day PRN 238 grams 0RF laxative effect bisacodyl (Dulcolax (bisacodyl)) Day before procedure @ 12 noon Take 4 tablets by mouth followed by large glass of water 20 mg (4 x 5 mg) PO ONCE 1 day PRN 4 tabs 0RF colonoscopy prep Z12.11 - Encounter for screening for malignant neoplasm of colon polyethylene glycol 3350 (Miralax) 17 GM QD x 1 week prior to prep day 17 grams PO DAILY 1 week PRN 510 grams 1RF laxative effect Patient Instructions: Pleasant 53-year-old Gent sent for repeat colonoscopy- Physical exam-mild tachycardia-seeing PCP tomorrow will bring to her attention-will offer input with any change in plan-change in health status No major barriers to understanding were identified Colonoscopy screen MG prep Miralax QD for 1 wk prior to prep day Omit metformin- day before No DM meds morning of procedure Coding Level of Care Code New Pt Level 3 (91142) Diagnoses Encounter for screening colonoscopy Z12.11 Time Spent (min) 30
[2023-05-17 12:45] VITALS: BP 144/79; PULSE 104; BMI 33.5
== END 2023-05-17 14:25 | disposition home or self-care (01) ==
PROVIDERS: PCP Internal Medicine; Visit Provider Physician Assistant
DX: Z01.818 Encounter for other preprocedural examination (principal); Z12.11 Encounter for screening for malignant neoplasm of colon
CPT/HCPCS: S0285

== ENCOUNTER → 2023-05-17 12:44 | Outpatient (BNVA) | payer OTHER, SELFPAY | PROVIDERS: PCP Internal Medicine; Visit Provider Physician Assistant ==

== ENCOUNTER 2023-06-17 08:08 | Outpatient (REF) | payer OTHER, SELFPAY ==
--- NOTE | ~2023-06-17 | XR_ITS ---
EXAMINATION: XR HIP, RIGHT CLINICAL INFORMATION: Osteoarthritis right hip COMPARISON: X-rays of the pelvis and left hip June 2020 TECHNIQUE: Two views of the right hip. FINDINGS: There is a small subchondral cyst along the superior lateral acetabulum probably unchanged. There are marginal osteophytes the femoral head neck junction unchanged. Probable mild joint space narrowing. Findings indicative of mild to moderate osteoarthritis unchanged. Partially visualized pelvis unremarkable except for the partially visualized left total hip arthroplasty XR/XR hip RT min 2V IMPRESSION: Mild to moderate osteoarthritis of the right hip unchanged.
== END 2023-06-17 08:09 | disposition home or self-care (01) ==
LOC: HO.XRAY 08:08
PROVIDERS: PCP Internal Medicine; Visit Provider Internal Medicine
DX: M16.11 Unilateral primary osteoarthritis, right hip (principal)
CPT/HCPCS: 73502

== ENCOUNTER 2023-08-12 06:48 | Outpatient (REF) | payer OTHER, SELFPAY ==
[2023-08-12 07:49] LABS: Estimated Average Glucose 134 mg/dL; Hemoglobin A1c % 6.3 % (<6.0)
[2023-08-12 08:32] LABS: Alanine Aminotransferase 31 U/L (0-40); Albumin Level 4.6 g/dL (3.5-5.0); Alkaline Phosphatase 81 U/L (39-117); Anion Gap 14 (12-20); Aspartate Amino Transferase 27 U/L (5-37); Bilirubin Total 0.6 mg/dL (0.0-1.0); Blood Urea Nitrogen 17 mg/dL (9-16); Calcium 9.8 mg/dL (8.4-10.2); Carbon Dioxide 25 mmol/L (22-29); Chloride 106 mmol/L (96-108); Estimated Glomerular Filt Rate > 60; Glucose Random 133 mg/dL (60-115); Potassium 4.2 mmol/L (3.3-5.1); Sodium 141 mmol/L (135-145); Total Protein 7.8 g/dL (6.5-8.0)
[2023-08-12 08:49] LABS: Thyroid Stimulating Hormone 1.97 uIU/mL (0.32-4.0)
== END 2023-08-12 06:49 | disposition home or self-care (01) ==
LOC: HO.LAB 06:48
PROVIDERS: PCP Internal Medicine; Visit Provider Internal Medicine
DX: E11.9 Type 2 diabetes mellitus without complications (principal); E78.00 Pure hypercholesterolemia, unspecified; I10 Essential (primary) hypertension; R74.01 Elevation of levels of liver transaminase levels
CPT/HCPCS: 36415; 80053; 83036; 84443

== ENCOUNTER 2023-09-14 07:33 | Day surgery (SDC) | payer OTHER, SELFPAY ==
[2023-09-12 12:24] VITALS: BMI 33.4
--- NOTE | 2023-09-12 14:17 | HO.ANESPROP2 ---
Documented by User: Fatou Nguyễn NP 09/12/23 14:18 HPI - Anesthesia Eval Consult details Narrative: 53yo M for Colonoscopy PMFSH Active Problems Active Problems: All Active Problems Encounter for screening colonoscopy (Acute) Sacroiliac joint pain (Acute) Sacroiliitis (Acute) Breast mass, right (Acute) Muscle spasm of back (Acute) Lumbar radiculopathy (Acute) Inflammatory arthritis (Acute) Left wrist pain (Acute) Past Medical History Medical History Lumbar spondylolysis Lumbar post-laminectomy syndrome Psoriatic arthritis Gout Carpal tunnel syndrome Thyroid disease HTN (hypertension) Diabetes Family History Family History Mother HTN (hypertension) Father Hypothyroidism Prostate cancer Family history of problems with anesthesia: No Surgical History Surgical History Hx of colonoscopy History of breast lump/mass excision (09/23/21) Hx of thumb surgery History of carpal tunnel release History of total left hip replacement History of Problems with Anesthesia: No Social History Social History Alcohol intake: current Alcohol intake frequency: holidays/special occasions only Patient Tobacco Use Status: Never used Tobacco e-Cigarette/Vaping Use: Never Used Second Hand Smoke Exposure: No Use of substances other than those prescribed or required for medical reasons: No Are you DNR?: No Advance Directives: No Advance Directives Information Provided: Yes Meds Allergies Allergy/AdvReac Type Severity Reaction Status Date / Time etanercept [From Enbrel] Allergy Intermediate Rash Verified 09/12/23 12:20 Penicillins [PENICILLINS] Allergy Unknown unknown Verified 09/12/23 12:20 reaction-childhood allergy Home Medications ?Medication ?Instructions ?Recorded ?Confirmed ?Last Taken ?Type atorvastatin 80 mg tablet 80 mg PO DAILY 05/23/20 09/12/23 Unknown History multivitamin 1 tab PO DAILY 05/23/20 09/12/23 Unknown History sertraline 100 mg tablet 100 mg PO DAILY 05/23/20 09/12/23 Unknown History lisinopril 40 mg tablet 40 mg PO DAILY 08/12/20 09/12/23 Unknown History allopurinol 300 mg tablet 600 mg PO BID gout 05/25/21 09/12/23 Unknown History amlodipine 10 mg tablet 10 mg PO DAILY 09/03/21 09/12/23 Unknown History metformin 1,000 mg tablet 1,000 mg PO BID 09/03/21 09/12/23 Unknown History metronidazole 0.75 % topical cream 1 appl topical QAM 09/03/21 09/12/23 Unknown History levothyroxine 50 mcg tablet 50 mcg PO DAILY 05/17/23 09/14/23 09/14/23 03:00 History loratadine 10 mg tablet 10 mg PO DAILY 05/17/23 09/12/23 Unknown History Exam Height,Weight and Vital Signs: Height 5 ft 8 in Weight 99.79 kg Assessment and Plan Assessment Anesthesia Assessment: Chart Reviewed Final Anesthetic Review Family History of Problems with Anesthesia: No History of Problems with Anesthesia: No Documented by User: Liliane Vargas MD 09/14/23 08:50 PMFSH Past Medical History Medical History Lumbar spondylolysis Lumbar post-laminectomy syndrome Psoriatic arthritis Gout Carpal tunnel syndrome Thyroid disease HTN (hypertension) Diabetes Family History Family History Mother HTN (hypertension) Father Hypothyroidism Prostate cancer Surgical History Surgical History Hx of colonoscopy History of breast lump/mass excision (09/23/21) Hx of thumb surgery History of carpal tunnel release History of total left hip replacement Social History Social History Alcohol intake: current Alcohol intake frequency: holidays/special occasions only Patient Tobacco Use Status: Never used Tobacco e-Cigarette/Vaping Use: Never Used Second Hand Smoke Exposure: No Use of substances other than those prescribed or required for medical reasons: No Are you DNR?: No Advance Directives: No Advance Directives Information Provided: Yes Meds Allergies Allergy/AdvReac Type Severity Reaction Status Date / Time etanercept [From Enbrel] Allergy Intermediate Rash Verified 09/12/23 12:20 Penicillins [PENICILLINS] Allergy Unknown unknown Verified 09/12/23 12:20 reaction-childhood allergy Home Medications ?Medication ?Instructions ?Recorded ?Confirmed ?Last Taken ?Type atorvastatin 80 mg tablet 80 mg PO DAILY 05/23/20 09/12/23 Unknown History multivitamin 1 tab PO DAILY 05/23/20 09/12/23 Unknown History sertraline 100 mg tablet 100 mg PO DAILY 05/23/20 09/12/23 Unknown History lisinopril 40 mg tablet 40 mg PO DAILY 08/12/20 09/12/23 Unknown History allopurinol 300 mg tablet 600 mg PO BID gout 05/25/21 09/12/23 Unknown History amlodipine 10 mg tablet 10 mg PO DAILY 09/03/21 09/12/23 Unknown History metformin 1,000 mg tablet 1,000 mg PO BID 09/03/21 09/12/23 Unknown History metronidazole 0.75 % topical cream 1 appl topical QAM 09/03/21 09/12/23 Unknown History levothyroxine 50 mcg tablet 50 mcg PO DAILY 05/17/23 09/14/23 09/14/23 03:00 History loratadine 10 mg tablet 10 mg PO DAILY 05/17/23 09/12/23 Unknown History Exam Airway Mallampati Class: III TM Dist: >3cm Neck ROM: Full Loose/Missing/Broken Teeth: No Heart: RRR Lungs: CTA Assessment and Plan Assessment Anesthesia Assessment: Anesthesia Plan Discussed Final Anesthetic Review NPO: Yes ASA Class: II Final Preanesthetic Review: Meds/Allgs Chart Reviewed, Consent Obtained/Reviewed and Anes Risks/Benef Reviewed Patient Risk: Low Procedure Risk: Low Anesthetic Plan Anesthetic Plan: MAC: Disposition: Standard PACU
--- NOTE | 2023-09-14 06:01 | P.HPSUR_ITS ---
Pre-Procedural Eval Section A - 24 Hr Update-Section A only Date of Service: 09/14/23 Section B - Complete if H&P > 30 days Chief Complaint: Encounter for screening for malignant neoplasm of Relevant Family History (Specify if Yes): No Relevant Social History: None Present Medications: see Short Stay Collaborative assessment Medical History: Significant History (Lumbar spondylolysis Lumbar post-laminec agustin syndrome Psoriatic arthritis Gout Carpal tunnel syndrome Thyroid disease HTN (hypertension) Diabetes) History of Previous Operations: Relevant previous surgery/procedure and date(s) ( Hx of colonoscopy History of breast lump/mass excision (09/23/21) Hx of thumb surgery History of carpal tunnel release History of total left hip replacement) Allergies: Allergies Allergy/AdvReac Type Severity Reaction Status Date / Time etanercept [From Enbrel] Allergy Intermediate Rash Verified 09/12/23 12:20 Penicillins [PENICILLINS] Allergy Unknown unknown Verified 09/12/23 12:20 reaction-childhood allergy Review of Systems Sugical H&P ROS: Negative: Constitution, Cardiovascular, Respiratory, Neurological, Psychiatric, Hem-Onc, Allergic/Immunologic, Gastrointestinal, Genitourinary, Musculoskeletal, Integumentary, Endocrine and Eyes/Ears/Nose /Throat Exam Surgical H&P Exam: Normal: HEENT, Normal: Heart, Normal: Lungs, Normal: Extremities, Normal: Abdomen, Normal: Skin and Normal: Neurological Plan Diagnosis/Plan: Unchanged I have reviewed the history and physical and performed a pertinent physical examination on my patient. No changes have occurred unless specified. Time Spent With Patient Time: Total time managing care of this patient today ____ minutes.
[2023-09-14 07:40] VITALS: BMI 34.6
[2023-09-14 07:57] VITALS: BP 151/91; PULSE 68; RESP 18; TEMP 35.6; O2SAT 97
[2023-09-14] MEDS: Lactated Ringers 1,000 ML 100 ML IVCONT (08:14)
--- NOTE | 2023-09-14 08:55 | P.OPN-COLO_ITS ---
Colonoscopy Operative Note Operative Note Date of Service: 09/14/23 Narrative: Operative Information Procedure Description: Colonoscopy Indication: screening Anesthesia: MAC COLONOSCOPY Instrument: Olympus variable stiffness pediatric scope 190L Colonoscopy Monitoring: Vital signs and clinical assessment, continuous EKG monitoring, Pulse oximetry, Carbon Dioxide monitoring and blood pressure monitoring were done throughout the procedure. Colon withdrawal time was 9 minutes. Procedure: The patient was placed in the left lateral decubitis position and pre-procedure medications were administered. After a digital rectal examination of the ano-rectum, the video colonoscope was inserted into the rectum and advanced through the colon to the cecum/TI. The colonoscope was slowly withdrawn in a retrograde panoramic fashion and the colon mucosa was carefully examined including a retroflexed view of the rectum. Findings and interventions are described below. Procedure Difficulty: easy Findings: Terminal Ileum-normal Cecum:normal Right sided retroflexion- normal Ascending Colon: normal Transverse Colon -normal Descending Colon:normal Sigmoid Colon: normal Rectum: Retroflexion with small internal hemorrhoids seen, grade I Anorectum - normal Intervention: none Colon preparation: [place] Bowel Preparation Scale Right colon; 2 Transverse colon: 2 Left colon; 2 (0 = Unprepared colon segment with mucosa not seen due to solid stool that cannot be cleared. 1 = Portion of mucosa of the colon segment seen, but other areas of the colon segment not well seen due to staining, residual stool and/or opaque liquid. 2 = Minor amount of residual staining, small fragments of stool and/or opaque liquid, but mucosa of colon segment seen well. 3 = Entire mucosa of colon segment seen well with no residual staining, small fragments of stool or opaque liquid) Impression and Post Procedure Diagnosis: internal hemorrhoids Plan: High fiber diet leaflet Avoid straining at stool, epsom salts and sitz bath, anusol supps or cream Repeat Colonoscopy in 10 years or earlier if clinically indicated Above findings were reviewed with the patient and relevant handouts were provided if indicated.
[2023-09-14 08:58] VITALS: BP 123/89; PULSE 76; RESP 18; TEMP 37; O2SAT 99
[2023-09-14 09:13] VITALS: BP 139/92; PULSE 76; RESP 18; TEMP 36.7; O2SAT 98
[2023-09-14 09:33] LABS: Glucose, Whole Blood 115 mg/dL (60-115)
== END 2023-09-14 09:47 | disposition home or self-care (01) ==
PROVIDERS: PCP Internal Medicine; Visit Provider Internal Medicine Gastroenterology
PROC: 0DJD8ZZ Inspection of Lower Intestinal Tract, Via Natural or Artificial Opening Endoscopic (ICD-10-PCS; CPT 45378; principal; 2023-09-14 09:10)
DX: Z12.11 Encounter for screening for malignant neoplasm of colon (principal); K64.0 First degree hemorrhoids; I10 Essential (primary) hypertension; E11.9 Type 2 diabetes mellitus without complications; L40.50 Arthropathic psoriasis, unspecified; Z79.1 Long term (current) use of non-steroidal anti-inflammatories (NSAID); Z79.84 Long term (current) use of oral hypoglycemic drugs; Z79.899 Other long term (current) drug therapy; Z88.0 Allergy status to penicillin; Z88.8 Allergy status to other drugs, medicaments and biological substances; Z98.890 Other specified postprocedural states
CPT/HCPCS: 45378; 82947; J2704

== ENCOUNTER → 2023-09-14 07:33 | Outpatient (BNV) | payer OTHER, SELFPAY | PROVIDERS: PCP Internal Medicine; Visit Provider Internal Medicine Gastroenterology | DX: Z12.11 Encounter for screening for malignant neoplasm of colon (principal); K64.0 First degree hemorrhoids | CPT/HCPCS: 45378 ==

== ENCOUNTER 2024-04-02 08:52 | Emergency (ER) | payer MEDICAID, SELFPAY ==
[2024-04-02 09:24] VITALS: BP 173/105; PULSE 145; RESP 20; TEMP 36.4; O2SAT 97; BMI 35.9
--- NOTE | 2024-04-02 09:32 | ECG_ITS ---
Test Reason : PALPATATIONS Blood Pressure : */* mmHG Vent. Rate : 114 BPM Atrial Rate : 114 BPM P-R Int : 182 ms QRS Dur : 88 ms QT Int : 328 ms P-R-T Axes : 21 5 9 degrees QTcB Int : 452 ms Sinus tachycardia Otherwise normal ECG No previous ECGs available Referred By: Generic ED Physician Electronically Signed By: IVETT DIALLO MD
[2024-04-02 16:29] VITALS: BP 146/99; PULSE 107; RESP 18; TEMP 36.8; O2SAT 98
--- NOTE | 2024-04-02 17:34 | ED.GENADULT ---
HPI - General Adult General Chief complaint: Back Pain/Injury Stated complaint: back pain Time Seen by Provider: 04/02/24 17:34 History of Present Illness ED Provider: Brock TARANGO narrative: The patient is a 53-year-old male who has a history of back problems. He had back surgery with Dr. Aj Mcclure of [facility] approximately 2 years ago. Had some recurrence of low back pain over the last couple of months. This is mostly in his right lower back. He has seen his primary care doctor who arranged for an MRI of his lower back that was done a couple of weeks ago in [place] but he does not know the result. The patient has also been having problems with a skin rash that has been bothering him for about a month. He has many brown flat spots on multiple parts of his body that he says are itchy. He says that he went to a emr trainer who prescribed 2 creams that he has been using but they have not been helpful. The patient says that he is here today because he has had worsening back pain. He is taking diclofenac during the day and tizanidine at night. Also here because he was doing an online search of what might be causing his rash and he was worried that it might be something to do with his kidneys. He has had no bowel or bladder control problems. He says the pain in his low back radiates down the right leg but he has been able to use the leg. No fever, sweats, chills. Related Data Home Medications ?Medication ?Instructions ?Recorded ?Confirmed atorvastatin 80 mg tablet 80 mg PO DAILY 05/23/20 09/12/23 multivitamin 1 tab PO DAILY 05/23/20 09/12/23 sertraline 100 mg tablet 100 mg PO DAILY 05/23/20 09/12/23 lisinopril 40 mg tablet 40 mg PO DAILY 08/12/20 09/12/23 allopurinol 300 mg tablet 600 mg PO BID gout 05/25/21 09/12/23 amlodipine 10 mg tablet 10 mg PO DAILY 09/03/21 09/12/23 metformin 1,000 mg tablet 1,000 mg PO BID 09/03/21 09/12/23 metronidazole 0.75 % topical cream 1 appl topical QAM 09/03/21 09/12/23 levothyroxine 50 mcg tablet 50 mcg PO DAILY 05/17/23 09/14/23 loratadine 10 mg tablet 10 mg PO DAILY 05/17/23 09/12/23 Previous Rx's ?Medication ?Instructions ?Recorded folic acid 1 mg tablet 1 mg PO DAILY #30 tabs 07/01/20 tizanidine 4 mg tablet 4 mg PO Q8H PRN muscle spasticity 02/19/22 30 days #90 tabs cyclobenzaprine 10 mg tablet 10 mg PO TID PRN pain #14 tabs 04/05/23 ibuprofen 400 mg tablet 400 mg PO Q6H PRN pain #20 tabs 04/05/23 bisacodyl 5 mg tablet,delayed 20 mg (4 x 5 mg) PO ONCE PRN 05/17/23 release (Dulcolax (bisacodyl)) colonoscopy prep 1 day #4 tabs polyethylene glycol 3350 17 17 g PO DAILY PRN laxative effect 05/17/23 gram/dose oral powder (Miralax) 1 week #510 grams polyethylene glycol 3350 17 238 g PO ONCE PRN laxative effect 05/17/23 gram/dose oral powder (Miralax) 1 day #238 grams prednisone 5 mg tablet 5 mg PO DIRECTED #66 tabs 04/02/24 Allergies Allergy/AdvReac Type Severity Reaction Status Date / Time etanercept [From Enbrel] Allergy Intermediate Rash Verified 04/02/24 09:28 Penicillins [PENICILLINS] Allergy Unknown unknown Verified 04/02/24 09:28 reaction-childhood allergy Review of Systems Review of Systems: Yes all other systems are reviewed and are negative [facility] Past Medical History Medical History Lumbar spondylolysis Lumbar post-laminectomy syndrome Psoriatic arthritis Gout Carpal tunnel syndrome Thyroid disease HTN (hypertension) Diabetes Surgical History Hx of colonoscopy History of breast lump/mass excision (09/23/21) Hx of thumb surgery History of carpal tunnel release History of total left hip replacement Family History Family History Mother HTN (hypertension) Father Hypothyroidism Prostate cancer Social History Social History Alcohol intake: current Alcohol intake frequency: holidays/special occasions only Patient Tobacco Use Status: Never used Tobacco e-Cigarette/Vaping Use: Never Used Second Hand Smoke Exposure: No Advance Directives: No Advance Directives Information Provided: No Do you have a plan to hurt others: No Plan Physical Exam ED Vital Signs: Vital Signs - 24 hr 04/02/24 09:24 04/02/24 16:29 04/02/24 20:25 Temperature 97.5 F 98.2 F 98.2 F Pulse Rate 145 H 107 H 107 H Respiratory Rate 20 18 18 Blood Pressure 173/105 H 146/99 H 146/99 H Pulse Oximetry 97 98 98 Oxygen Delivery Method Room Air Room Air Room Air BMI result Body Mass Index 35.9 Const Other: The patient is awake and alert. He seems to move stiffly but does not seem in distress otherwise. HENMT Other: Face is symmetrical. Mucous membranes moist. Eyes General: appearance normal, both eyes and all related structures Conjunctivae: conjunctivae normal EOM: EOMs intact bilaterally Neck Neck: Yes full ROM, Yes no lymphadenopathy and Yes no JVD Resp Effort & Inspection: normal respiratory effort Auscultation: clear to auscultation bilaterally Cardio Rate: regular rate Rhythm: regular rhythm Heart sounds: S1 normal heart sound present and S2 normal heart sound present GI Other: Abdomen is soft and nontender Skin Other: The patient's skin has an unusual rash characterized by brown macular lesions over much of the body, mostly on the trunk. He describes them as itchy. Neuro Other: The patient is awake and alert with a normal mental status. Normal cranial nerves. He seems to have intact strength and sensation in his lower extremities. He has 2+ reflexes at the knees. 1+ reflexes at the ankles. Toes go down bilaterally. Extrem Other: No peripheral edema Medications Administered Discontinued Medications Generic Name Dose Route Start Last Admin Trade Name Freq PRN Reason Stop Dose Admin Acetaminophen 975 mg 04/02/24 17:49 04/02/24 18:50 Acetaminophen 325 Mg Tablet PO 04/02/24 17:50 975 mg ONCE ONE Administration Ketorolac Tromethamine 30 mg 04/02/24 17:49 04/02/24 18:51 Ketorolac Tromethamine 30 Mg/Ml Vial IM 04/02/24 17:50 30 mg ONCE ONE Administration Prednisone 60 mg 04/02/24 20:10 04/02/24 20:24 Prednisone 20 Mg Tablet PO 04/02/24 20:11 60 mg ONCE ONE Administration Medical Decision Making Medical Decision Making [facility] Narrative: The patient is a 53-year-old male who presents because of worsening low back pain. This has been getting worse over the past couple of months. He has a history of low back surgery a couple of years ago. He had an outpatient MRI done 2 weeks ago but has not heard of the results. The patient is not describing any bowel or bladder control problems or any fevers or other red flags. He has no concerning abnormal neurological findings. He was concerned that the rash might somehow be indicative of a kidney problem. His renal function is unremarkable and a urinalysis is unremarkable. The patient was treated with ketorolac and acetaminophen. He will be discharged with a prescription for cyclobenzaprine. Additionally, given the itchiness of his skin lesions, it occurs to me that he might benefit from a course of steroids. Both his back pain and the rash might benefit. He was therefore put on a prednisone taper. He should follow up with his PCP in his emr trainer for further care. Lab Data 04/02/24 19:05 04/02/24 19:05 Labs: Lab Results 04/02/24 04/02/24 Range/Units 19:05 19:11 WBC 7.2 (4.8-10.8) X10*3/uL RBC 4.62 (4.60-5.80) X10*6/uL Hgb 14.3 (14.0-18.0) g/dl Hct 41.8 L (42.0-52.0) % MCV 90.5 (80.0-98.0) fL MCH 31.0 (27.0-33.0) pg MCHC 34.2 (31.0-36.0) g/dl RDW 13.0 (11.0-16.0) % Plt Count 234 (160-400) X10*3/uL MPV 10.2 (9.4-12.4) fL Immature Gran % (Auto) 1.1 H (0.0-0.4) % Neut % (Auto) 59.8 (45-73) % Lymph % (Auto) 26.6 (20-40) % Taylor % (Auto) 6.8 (2-11) % Eos % (Auto) 4.7 H (0-4) % Baso % (Auto) 1.0 (0-2) % Lymph # (Auto) 1.9 (1.2-4.9) X10*3/uL Taylor # (Auto) 0.5 (0.1-1.2) X10*3/uL Eos # (Auto) 0.3 (0.0-0.4) X10*3/uL Baso # (Auto) 0.1 (0.0-0.2) X10*3/uL Abs Immat Gran (auto) 0.08 H (0.00-0.03) X10*3/uL Absolute Neuts (auto) 4.3 (2.0-8.3) x10*3/uL Absolute Nucleated RBC 0.000 (0.0-0.012) X10*3/uL Nucleated RBC % (auto) 0.0 (0.0-0.2) /100WBC Sodium 142 (135-145) mmol/L Potassium 4.5 (3.3-5.1) mmol/L Chloride 106 (96-108) mmol/L Carbon Dioxide 24 (22-29) mmol/L Anion Gap 17 (12-20) BUN 15 (9-16) mg/dL Creatinine 0.97 (0.5-1.4) mg/dL Estim Creat Clear Calc 104.4 Estimated GFR > 60 Random Glucose 110 (60-115) mg/dL Calcium 9.5 (8.4-10.2) mg/dL Magnesium 2.2 (1.6-2.6) mg/dL Total Bilirubin 0.6 (0.0-1.0) mg/dL AST 39 H (5-37) U/L ALT 54 H (0-40) U/L Alkaline Phosphatase 82 (39-117) U/L Total Protein 8.3 H (6.5-8.0) g/dL Albumin 4.6 (3.5-5.0) g/dL Urine Color Yellow Urine Appearance Clear Urine pH 5.5 (5.0-9.0) Ur Specific [place] 1.025 (1.005-1.025) Urine Protein 30 (1+) H (Neg-Trace) mg/dL Urine Glucose (UA) Negative (Negative) mg/dL Urine Ketones Trace (Negative) mg/dL Urine Blood Negative (Negative) Urine Nitrite Negative (Negative) Ur Leukocyte Esterase Negative (Negative) Urine RBC 0-2 (0-2) /HPF Urine WBC 0-5 (0-5) /HPF Ur Squamous Epith Cells 0-2 (0-2) /HPF Urine Bacteria None Seen (None Seen) Hyaline Casts 0-2 (0-2) /LPF Discharge Plan Discharge Clinical Impression: Acute low back pain, Rash Patient Disposition: Home, Self-Care Instructions: Acute Low Back Pain (ED) Additional Instructions: Your testing in the emergency room today is very reassuring from the point of view of any acutely dangerous process. You has been started on a course of prednisone, a steroid medication which is an anti-inflammatory. This may help both your low back pain and your rash. This is a tapering medicine. This means you will take a slightly smaller dose each day. Continue your diclofenac. You may continue the tizanidine at night. You may also take two(2) 500 mg tablets of acetaminophen (Tylenol) up to 3 times per day as needed as well. Please contact your primary care doctor's office tomorrow morning to try to arrange an earlier follow up appointment regarding your back pain and pain control. Also regarding the results of your MRI. Please follow up with the dermatology office as well. Return to the emergency room if significantly worse. Prescriptions: New prednisone 5 mg tablet 5 mg PO DIRECTED Qty: 66 0RF Rx Instructions: Take 11 tablets by mouth daily for 1 day, then take 10 tablets by mouth daily for 1 day, then take 9 tablets by mouth daily for 1 day, continue to take tablet less per day until done No Action tizanidine 4 mg tablet 4 mg PO Q8H PRN (Reason: muscle spasticity) 30 Days Qty: 90 8RF cyclobenzaprine 10 mg tablet 10 mg PO TID PRN (Reason: pain) Qty: 14 0RF ibuprofen 400 mg tablet 400 mg PO Q6H PRN (Reason: pain) Qty: 20 0RF atorvastatin 80 mg tablet 80 mg PO DAILY sertraline 100 mg tablet 100 mg PO DAILY multivitamin Tablet 1 tab PO DAILY folic acid 1 mg tablet 1 mg PO DAILY Qty: 30 2RF lisinopril 40 mg tablet 40 mg PO DAILY allopurinol 300 mg tablet 600 mg PO BID metronidazole 0.75 % cream 1 appl topical QAM metformin 1,000 mg tablet 1,000 mg PO BID amlodipine 10 mg tablet 10 mg PO DAILY loratadine 10 mg tablet 10 mg PO DAILY levothyroxine 50 mcg tablet 50 mcg PO DAILY bisacodyl [Dulcolax (bisacodyl)] 5 mg tablet,delayed release (DR/EC) 20 mg PO ONCE PRN (Reason: colonoscopy prep) 1 Days Qty: 4 0RF Rx Instructions: Day before procedure @ 12 noon Take 4 tablets by mouth followed by large glass of water polyethylene glycol 3350 [Miralax] 17 gram/dose powder 238 g PO ONCE PRN (Reason: laxative effect) 1 Days Qty: 238 0RF Rx Instructions: Take as directed by mouth the day before your procedure. polyethylene glycol 3350 [Miralax] 17 gram/dose powder 17 g PO DAILY PRN (Reason: laxative effect) 7 Days Qty: 510 1RF Rx Instructions: 17 GM QD x 1 week prior to prep day Referrals: Shivani Reardon MD [Primary Care Provider] - (Low back pain, unusual rash) Stand Alone Forms: Work/School Release Interventions: ED Discharge Assessment Last Done: 04/02/24 20:25 Discharge Date/Time: 04/02/24 20:25 Print Language: Armenian
[2024-04-02] MEDS: Acetaminophen 325 MG TABLET 975 MG PO (18:50)
[2024-04-02] MEDS: Ketorolac Tromethamine 30 MG/ML VIAL IM (18:51)
[2024-04-02 19:16] LABS: MANUAL DIFF FLAG NO
[2024-04-02 19:20] LABS: Basophils Absolute Auto 0.1 X10*3/uL (0.0-0.2); Eosinophils Absolute Auto 0.3 X10*3/uL (0.0-0.4); Eosinophils Percent Auto 4.7 % (0-4); Hematocrit 41.8 % (42.0-52.0); Hemoglobin 14.3 g/dl (14.0-18.0); Imm Gran Abs Auto 0.08 X10*3/uL (0.00-0.03); Imm Gran Pct Auto 1.1 % (0.0-0.4); Lymphocytes Absolute Auto 1.9 X10*3/uL (1.2-4.9); Lymphocytes Percent Auto 26.6 % (20-40); Mean Corpuscular HGB Conc 34.2 g/dl (31.0-36.0); Mean Corpuscular Volume 90.5 fL (80.0-98.0); Mean Platelet Volume 10.2 fL (9.4-12.4); Monocytes Absolute Auto 0.5 X10*3/uL (0.1-1.2); Monocytes Percent Auto 6.8 % (2-11); Neutrophils Absolute Auto 4.3 x10*3/uL (2.0-8.3); Neutrophils Percent Auto 59.8 % (45-73); Platelet Count 234 X10*3/uL (160-400); Red Blood Count 4.62 X10*6/uL (4.60-5.80); White Blood Count 7.2 X10*3/uL (4.8-10.8)
[2024-04-02 19:27] LABS: Appearance Urine Clear; Color Urine Yellow; Glucose Urine UA Negative (Negative); Leukocyte Esterase Urine Negative (Negative); Nitrite Urine Negative (Negative); PH 5.5 (5.0-9.0); Specific Gravity - Urine 1.025 (1.005-1.025); UMIC TRIGGER UACC YES; Urine Blood Negative (Negative); Urine Ketones Trace mg/dL (Negative); Urine Protein 30 (1+) mg/dL (Neg-Trace)
[2024-04-02 19:33] LABS: Bacteria Urine None Seen (None Seen); Hyaline Casts Urine 0-2 /LPF (0-2); RBC Urine 0-2 /HPF (0-2); Squamous Epithelial Cell Urine 0-2 /HPF (0-2); WBC Urine 0-5 /HPF (0-5)
[2024-04-02 19:35] LABS: Alanine Aminotransferase 54 U/L (0-40); Albumin Level 4.6 g/dL (3.5-5.0); Alkaline Phosphatase 82 U/L (39-117); Anion Gap 17 (12-20); Aspartate Amino Transferase 39 U/L (5-37); Bilirubin Total 0.6 mg/dL (0.0-1.0); Blood Urea Nitrogen 15 mg/dL (9-16); Calcium 9.5 mg/dL (8.4-10.2); Carbon Dioxide 24 mmol/L (22-29); Chloride 106 mmol/L (96-108); Creatinine Clr Calc Pharmacy 104.4; Estimated Glomerular Filt Rate > 60; Glucose Random 110 mg/dL (60-115); Magnesium 2.2 mg/dL (1.6-2.6); Potassium 4.5 mmol/L (3.3-5.1); Sodium 142 mmol/L (135-145); Total Protein 8.3 g/dL (6.5-8.0)
[2024-04-02] MEDS: predniSONE 20 MG TABLET 60 MG PO (20:24)
[2024-04-02 20:25] VITALS: BP 146/99; PULSE 107; RESP 18; TEMP 36.8; O2SAT 98
== END 2024-04-02 20:25 | disposition home or self-care (01) ==
PROVIDERS: Physician Assistant Medical; Emergency Provider Emergency Medicine; PCP Internal Medicine
DX: R00.2 Palpitations (principal); R21 Rash and other nonspecific skin eruption; M54.50 Low back pain, unspecified; I10 Essential (primary) hypertension; E11.9 Type 2 diabetes mellitus without complications
CPT/HCPCS: 36415; 80053; 81001; 83735; 85025; 93005; 96372; 99284; J1885

== ENCOUNTER → 2024-04-02 09:32 | Outpatient (BNV) | payer OTHER, SELFPAY | PROVIDERS: PCP Internal Medicine; Visit Provider Internal Medicine Cardiovascular Disease | DX: R00.0 Tachycardia, unspecified (principal) | CPT/HCPCS: 93010 ==

== ENCOUNTER 2024-04-19 07:04 | Outpatient (REF) | payer MEDICAID, SELFPAY ==
--- OUTSIDE RECORDS SUMMARY | 2024-04-19 07:08 | XMS_ITS | Patient Health Record ---
Author Organization [facility] Address [address] [place] [address] Care Team Providers Care Health Care Facilities Inspector Name Role Phone Venturaandi Shivani Primary Care Provider Fredi Bravo Jr Unavailable ALLERGIES Allergen (clinical drug ingredient) Drug/Non Drug Allergy documented on EMR Reaction Allergy Type Onset Date Status Penicillin G Benzathine Unknown Drug Allergy Active REASON FOR REFERRAL No Information MEDICATIONS Medication SIG (Take, Route, Frequency, Duration) Notes Start Date End Date Status amLODIPine Besylate Active Levothyroxine Sodium Active Sertraline HCl Activ e Atorvastatin Calcium Active Sulindac Active metFORMIN HCl Active FreeStyle Lite Activ e traMADol HCl Active Vitamin B 12 Active Multivitamin Active Lisinopril-hydroCHLOROthiazi de Active Meloxicam Active MiraLax (colon prep) 8.3 ounce ((238) grams mixed with Gatorade or Crystal Light orally begin at 5:00 p.m. the day before the procedure for 1 day 12/07/2019 Active IMMUNIZATIONS Vaccine Route Administration Date Status Comme nts Influenza Unknown 12/07/2019 Refused SOCIAL HISTORY Tobacco Use: Social History Observation Description Date Details (start date - stop date) Never Smoker NA - NA Sex Assigned At : Social History Observation Description Sex Assigned At Unknown Tobacco Use/Smoking Question Answer Notes Patient is a nonsmoker Alcohol Screen Question Answer Notes Did you have a drink contain ing alcohol in the past year? Yes How often did you have a dri nk containing alcohol in the past year? 2 to 3 times a week (3 points) How many drinks did you have on a typical day when you were drinking in the past year? 5 or 6 drinks (2 points) How often did you have 6 or more drinks on one occasion in the past year? 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 of oral hypoglycemic drugs (Z79.84) Active confirmed [id number] PLAN OF TREATMENT Future Test Test Name Order Date COLONOSCOPY 12/07/2019 Insurance Providers Payer Name Payer Address Payer Phone Subscriber Number Group Number Insured Name Patient Relationship to Insured Coverage Start Date Coverage End Date MEDICAID OF [place] [address] [place] [phone] [id number] SANDRITA COLEMAN Self - patient is the insured MEDICAL (GENERAL) HISTORY Medical History History ICD Code diabetes mellitus hypertension Hypothyroidism carpal tunnel Surgical History Surgery Date(Month/Year) left hip replacement carpal tunnel release Finger Surgery - right thumb
[2024-04-19 07:17] LABS: MANUAL DIFF FLAG NO
[2024-04-19 07:42] LABS: Basophils Absolute Auto 0.1 X10*3/uL (0.0-0.2); Basophils Percent Auto 0.7 % (0-2); Eosinophils Absolute Auto 0.4 X10*3/uL (0.0-0.4); Eosinophils Percent Auto 5.3 % (0-4); Hematocrit 40.9 % (42.0-52.0); Hemoglobin 13.7 g/dl (14.0-18.0); Imm Gran Abs Auto 0.05 X10*3/uL (0.00-0.03); Imm Gran Pct Auto 0.7 % (0.0-0.4); Lymphocytes Absolute Auto 1.7 X10*3/uL (1.2-4.9); Lymphocytes Percent Auto 22.3 % (20-40); Mean Corpuscular HGB Conc 33.5 g/dl (31.0-36.0); Mean Corpuscular Hemoglobin 30.4 pg (27.0-33.0); Mean Corpuscular Volume 90.9 fL (80.0-98.0); Mean Platelet Volume 10.6 fL (9.4-12.4); Monocytes Absolute Auto 0.7 X10*3/uL (0.1-1.2); Monocytes Percent Auto 9.1 % (2-11); Neutrophils Absolute Auto 4.6 x10*3/uL (2.0-8.3); Neutrophils Percent Auto 61.9 % (45-73); Platelet Count 177 X10*3/uL (160-400); Red Cell Distribution Width 13.1 % (11.0-16.0); White Blood Count 7.4 X10*3/uL (4.8-10.8)
[2024-04-19 07:50] LABS: Estimated Average Glucose 148 mg/dL; Hemoglobin A1C 183.2785 umol/L; Hemoglobin A1c % 6.8 % (<6.0); Total Hemoglobin (HGBA1C) 3593.4256 umol/L
[2024-04-19 08:10] LABS: Alanine Aminotransferase 67 U/L (0-40); Albumin Level 4.6 g/dL (3.5-5.0); Alkaline Phosphatase 87 U/L (39-117); Anion Gap 13 (12-20); Aspartate Amino Transferase 44 U/L (5-37); Bilirubin Total 0.5 mg/dL (0.0-1.0); Blood Urea Nitrogen 20 mg/dL (9-16); Calcium 9.5 mg/dL (8.4-10.2); Carbon Dioxide 26 mmol/L (22-29); Chloride 105 mmol/L (96-108); Cholesterol 247 mg/dL (<200); Estimated Glomerular Filt Rate > 60; Glucose Random 166 mg/dL (60-115); HDL Cholesterol 41 mg/dL (>40); Potassium 4.3 mmol/L (3.3-5.1); Sodium 140 mmol/L (135-145); Total Protein 8.3 g/dL (6.5-8.0); Triglycerides 457 mg/dL (<150); Uric Acid 9.8 mg/dL (3.4-7.0)
[2024-04-19 08:24] LABS: Thyroid Stimulating Hormone 2.89 uIU/mL (0.32-4.0)
[2024-04-19 08:25] LABS: Prostate Specific Antigen Scr 1.24 ng/mL (<0.05-4.0)
[2024-04-19 10:03] LABS: Creatinine Urine 143.24 mg/dL; Microalbum/Creatinine Ratio Ur 29.3 ug/mg cr (<30)
== END 2024-04-19 07:05 | disposition home or self-care (01) ==
LOC: HO.LAB 07:04
PROVIDERS: PCP Internal Medicine; Visit Provider Internal Medicine
DX: Z00.00 Encounter for general adult medical examination without abnormal findings (principal); E03.8 Other specified hypothyroidism; E11.9 Type 2 diabetes mellitus without complications; E78.00 Pure hypercholesterolemia, unspecified; F32.9 Major depressive disorder, single episode, unspecified; I10 Essential (primary) hypertension; M10.9 Gout, unspecified; Z12.5 Encounter for screening for malignant neoplasm of prostate
CPT/HCPCS: 36415; 80053; 80061; 82043; 82570; 83036; 84153; 84443; 84550; 85025

== ENCOUNTER 2024-06-02 05:19 | Emergency (ER) | payer MEDICAID, SELFPAY ==
--- NOTE | ~2024-06-02 | XR_ITS ---
CLINICAL HISTORY: Swelling, pain 3 view right ankle Comparison: None Findings: No acute fractures. Ankle mortise intact. No significant loss of joint space, osteophytes, or erosions. No ankle effusion. No radiopaque foreign body. IMPRESSION: 1. No acute findings. This document has been electronically signed by: Brandon Car MD on 06/02/2024 06:13:17
[2024-06-02 05:21] VITALS: BP 149/85; PULSE 85; RESP 16; TEMP 36.5; O2SAT 97; BMI 35.0
--- NOTE | 2024-06-02 05:42 | ED_ITS ---
HPI - Extremity Injury (Lower) General Chief Complaint: Extremity Injury, Lower Stated Complaint: swollen right foot Time Seen by Provider: 06/02/24 05:41 Source: patient Mode of arrival: ambulatory Limitations: no limitations History of Present Illness ED Provider: HPI Narrative: Patient's history of gout on allopurinol comes here with pain and swelling in the right ankle for last 1 week no trauma no fever no chills no other joint involvement Related Data Home Medications ?Medication ?Instructions ?Recorded ?Confirmed atorvastatin 80 mg tablet 80 mg PO DAILY 05/23/20 09/12/23 multivitamin 1 tab PO DAILY 05/23/20 09/12/23 sertraline 100 mg tablet 100 mg PO DAILY 05/23/20 09/12/23 lisinopril 40 mg tablet 40 mg PO DAILY 08/12/20 09/12/23 allopurinol 300 mg tablet 600 mg PO BID gout 05/25/21 09/12/23 amlodipine 10 mg tablet 10 mg PO DAILY 09/03/21 09/12/23 metformin 1,000 mg tablet 1,000 mg PO BID 09/03/21 09/12/23 metronidazole 0.75 % topical cream 1 appl topical QAM 09/03/21 09/12/23 levothyroxine 50 mcg tablet 50 mcg PO DAILY 05/17/23 09/14/23 loratadine 10 mg tablet 10 mg PO DAILY 05/17/23 09/12/23 Previous Rx's ?Medication ?Instructions ?Recorded folic acid 1 mg tablet 1 mg PO DAILY #30 tabs 07/01/20 tizanidine 4 mg tablet 4 mg PO Q8H PRN muscle spasticity 02/19/22 30 days #90 tabs cyclobenzaprine 10 mg tablet 10 mg PO TID PRN pain #14 tabs 04/05/23 ibuprofen 400 mg tablet 400 mg PO Q6H PRN pain #20 tabs 04/05/23 bisacodyl 5 mg tablet,delayed 20 mg (4 x 5 mg) PO ONCE PRN 05/17/23 release (Dulcolax (bisacodyl)) colonoscopy prep 1 day #4 tabs polyethylene glycol 3350 17 17 g PO DAILY PRN laxative effect 05/17/23 gram/dose oral powder (Miralax) 1 week #510 grams polyethylene glycol 3350 17 238 g PO ONCE PRN laxative effect 05/17/23 gram/dose oral powder (Miralax) 1 day #238 grams prednisone 5 mg tablet 5 mg PO DIRECTED #66 tabs 04/02/24 colchicine 0.6 mg tablet 0.6 mg PO DAILY #30 tabs 06/02/24 ibuprofen 600 mg tablet 600 mg PO Q6H PRN fever or pain 06/02/24 #30 tabs prednisone 20 mg tablet 40 mg (2 x 20 mg) PO DAILY #10 tabs 06/02/24 Allergies Allergy/AdvReac Type Severity Reaction Status Date / Time etanercept [From Enbrel] Allergy Intermediate Rash Verified 06/02/24 05:22 Penicillins [PENICILLINS] Allergy Unknown unknown Verified 06/02/24 05:22 reaction-childhood allergy Review of Systems Review of Systems: Yes all other systems are reviewed and are negative [facility] Past Medical History Medical History Lumbar spondylolysis Lumbar post-laminectomy syndrome Psoriatic arthritis Gout Carpal tunnel syndrome Thyroid disease HTN (hypertension) Diabetes Surgical History Hx of colonoscopy History of breast lump/mass excision (09/23/21) Hx of thumb surgery History of carpal tunnel release History of total left hip replacement Family History Family History Mother HTN (hypertension) Father Hypothyroidism Prostate cancer Social History Social History Alcohol intake: current Alcohol intake frequency: holidays/special occasions only Patient Tobacco Use Status: Never used Tobacco Smoked in Last 30 Days: No e-Cigarette/Vaping Use: Never Used Second Hand Smoke Exposure: No Use of substances other than those prescribed or required for medical reasons: No Advance Directives: No Advance Directives Information Provided: Yes Do you have a plan to hurt others: No Plan Physical Exam Vital Signs: Vital Signs: Last Vital Signs Temp 97.7 F 06/02/24 05:21 Pulse 85 06/02/24 05:21 Resp 16 06/02/24 05:21 BP 149/85 H 06/02/24 05:21 Pulse Ox 97 06/02/24 05:21 O2 Del Method Room Air 06/02/24 05:21 BMI result Body Mass Index 35.0 Appearance: Alert. Oriented X3. No acute distress. Eyes: no pallor or icterus ENT: Pharynx normal. Oral Mucosa moist Neck: Normal inspection. Neck supple. CVS: Normal heart rate and rhythm. Pulses normal. Respiratory: No respiratory distress. Equal air entry bilateral, no wheezing/rales/rhonchi Abd: soft, not tender Skin: Skin warm and dry. Normal skin color. Normal skin turgor. Extremities: No lower extremity edema, no calf tenderness swelling of the right ankle diffuse tenderness no erythema deformity neurovascular intact Neuro: Oriented X 3. Medications Administered Discontinued Medications Generic Name Dose Route Start Last Admin Trade Name Freq PRN Reason Stop Dose Admin Ibuprofen 600 mg 06/02/24 06:13 06/02/24 06:16 Ibuprofen 600 Mg Tablet PO 06/02/24 06:14 600 mg ONCE ONE Administration Prednisone 60 mg 06/02/24 05:57 06/02/24 06:16 Prednisone 20 Mg Tablet PO 06/02/24 05:58 60 mg ONCE ONE Administration Medical Decision Making Medical Decision Making [facility] Narrative: Patient with a gouty arthritis of the right ankle previous uric acid level was 9.8 in 04/19/24 patient is already on allopurinol will give a course of prednisone Patient felt better after prednisone discharge patient on colchicine and prednisone Independent Interpretation I performed an independent interpretation of an: Plain X-Ray Interpretation: NAD Discharge Plan Discharge Clinical Impression: Gouty arthritis of right ankle Patient Disposition: Home, Self-Care Instructions: Low Purine Diet (ED), Gout (ED) Additional Instructions: Continue taking allopurinol Prednisone as prescribed Colchicine 1 tablet twice a day for 3 days then once a day daily Ibuprofen for pain Follow with your PCP Prescriptions: New prednisone 20 mg tablet 40 mg PO DAILY Qty: 10 0RF colchicine 0.6 mg tablet 0.6 mg PO DAILY Qty: 30 0RF ibuprofen 600 mg tablet 600 mg PO Q6H PRN (Reason: fever or pain) Qty: 30 0RF No Action tizanidine 4 mg tablet 4 mg PO Q8H PRN (Reason: muscle spasticity) 30 Days Qty: 90 8RF cyclobenzaprine 10 mg tablet 10 mg PO TID PRN (Reason: pain) Qty: 14 0RF ibuprofen 400 mg tablet 400 mg PO Q6H PRN (Reason: pain) Qty: 20 0RF prednisone 5 mg tablet 5 mg PO DIRECTED Qty: 66 0RF Rx Instructions: Take 11 tablets by mouth daily for 1 day, then take 10 tablets by mouth daily for 1 day, then take 9 tablets by mouth daily for 1 day, continue to take tablet less per day until done atorvastatin 80 mg tablet 80 mg PO DAILY sertraline 100 mg tablet 100 mg PO DAILY multivitamin Tablet 1 tab PO DAILY folic acid 1 mg tablet 1 mg PO DAILY Qty: 30 2RF lisinopril 40 mg tablet 40 mg PO DAILY allopurinol 300 mg tablet 600 mg PO BID metronidazole 0.75 % cream 1 appl topical QAM metformin 1,000 mg tablet 1,000 mg PO BID amlodipine 10 mg tablet 10 mg PO DAILY loratadine 10 mg tablet 10 mg PO DAILY levothyroxine 50 mcg tablet 50 mcg PO DAILY bisacodyl [Dulcolax (bisacodyl)] 5 mg tablet,delayed release (DR/EC) 20 mg PO ONCE PRN (Reason: colonoscopy prep) 1 Days Qty: 4 0RF Rx Instructions: Day before procedure @ 12 noon Take 4 tablets by mouth followed by large glass of water polyethylene glycol 3350 [Miralax] 17 gram/dose powder 238 g PO ONCE PRN (Reason: laxative effect) 1 Days Qty: 238 0RF Rx Instructions: Take as directed by mouth the day before your procedure. polyethylene glycol 3350 [Miralax] 17 gram/dose powder 17 g PO DAILY PRN (Reason: laxative effect) 7 Days Qty: 510 1RF Rx Instructions: 17 GM QD x 1 week prior to prep day Print Language: Tamazight
--- OUTSIDE RECORDS SUMMARY | 2024-06-02 05:53 | XMS_ITS | Patient Health Record ---
Author Organization [facility] Address [address] [place] [address] Care Team Providers Care Stock Wetter Name Role Phone Shivani Reardon Primary Care Provider Fredi Bravo Jr Unavailable Allergies Allergen (clinical drug ingredient) Drug/Non Drug Allergy documented on EMR Reaction Allergy Type Onset Date Status Penicillin G Benzathine Unknown Drug Allergy Active Reason For Referral No Information Medications Medication SIG (Take, Route, Frequency, Duration) Notes [...] the procedure for 1 day 12/07/2019 Active Immunizations Vaccine Route Administration Date Status Comme nts Influenza Unknown 12/07/2019 Refused Social History Tobacco Use: Social History Observation Description Date Details (start date - stop date) Never Smoker NA - NA Tobacco Use/Smoking Question Answer Notes Patient is [...] Monthly (2 points) Points 7 Interpretation Positive Problems Problem Type SNOMED Code ICD Code Onset Dates Problem Status W/U Status Risk Notes Problem 045626316 Colon cancer screening (Z12.11) Active confirmed Problem 681771414 assistant terminal manager (current) use of non-steroidal anti-inflammator ies (NSAID) (Z79.1) Active confirmed Problem [id number] assistant terminal manager (current) use of oral hypoglycemic drugs (Z79.84) Active confirmed Plan Of Treatment Future Test Test Name Order Date COLONOSCOPY 12/07/2019 Insurance Providers Payer Name Payer Address Payer Phone Subscriber Number Group Number Insured Name Patient Relationship to Insured Coverage Start Date Coverage End Date MEDICAID OF [employer] [address] [place] [id number] SANDRITA COLEMAN Self - patient is the insured Medical (General) History Medical History History ICD Code diabetes mellitus hypertension Hypothyroidism carpal tunnel Surgical History Surgery Date(Month/Year) left hip replacement carpal tunnel release Finger Surgery - right thumb
[2024-06-02] MEDS: Ibuprofen 600 MG TABLET PO (06:16)
[2024-06-02] MEDS: predniSONE 20 MG TABLET 60 MG PO (06:16)
[2024-06-02 07:13] VITALS: BP 127/84; PULSE 78; RESP 18; TEMP 36.6; O2SAT 97
== END 2024-06-02 07:15 | disposition home or self-care (01) ==
PROVIDERS: Emergency Provider Internal Medicine; PCP Internal Medicine
DX: M1A.0710 Idiopathic chronic gout, right ankle and foot, without tophus (tophi) (principal); R60.0 Localized edema; M25.571 Pain in right ankle and joints of right foot
CPT/HCPCS: 73610; 99283; 99284

== ENCOUNTER → 2024-06-02 05:35 | Outpatient (BNV) | payer MEDICAID, SELFPAY | PROVIDERS: Emergency Provider Internal Medicine; PCP Internal Medicine; Visit Provider Specialist | DX: M25.571 Pain in right ankle and joints of right foot (principal); R22.41 Localized swelling, mass and lump, right lower limb | CPT/HCPCS: 73610 ==

== ENCOUNTER 2024-07-27 08:52 | Outpatient (REF) | payer OTHER, SELFPAY ==
--- OUTSIDE RECORDS SUMMARY | 2024-07-27 09:11 | XMS_ITS | Patient Health Record ---
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 hypoglycemic drugs (Z79.84) Active confirmed Plan Of Treatment Future Test Test Name Order Date COLONOSCOPY 12/07/2019 Insurance Providers Payer Name Payer Address Payer Phone Subscriber Number Group Number Insured Name Patient Relationship to Insured Coverage Start Date Coverage End Date MEDICAID OF [employer] [facility] [address] [place] [phone] [id number] SANDRITA COLEMAN Self - patient is the insured Medical (General) History Medical History History ICD Code diabetes mellitus hypertension Hypothyroidism carpal tunnel Surgical History Surgery Date(Month/Year) left hip replacement carpal tunnel release Finger Surgery - right thumb
[2024-07-27 10:17] LABS: Estimated Average Glucose 148 mg/dL; Hemoglobin A1c % 6.8 % (<6.0)
[2024-07-27 10:32] LABS: Alanine Aminotransferase 32 U/L (0-40); Albumin Level 4.6 g/dL (3.5-5.0); Alkaline Phosphatase 91 U/L (39-117); Anion Gap 13 (12-20); Aspartate Amino Transferase 28 U/L (5-37); Bilirubin Total 0.3 mg/dL (0.0-1.0); Blood Urea Nitrogen 16 mg/dL (9-16); Calcium 9.7 mg/dL (8.4-10.2); Carbon Dioxide 26 mmol/L (22-29); Chloride 108 mmol/L (96-108); Estimated Glomerular Filt Rate > 60; Glucose Random 131 mg/dL (60-115); Potassium 4.6 mmol/L (3.3-5.1); Sodium 142 mmol/L (135-145); Total Protein 7.5 g/dL (6.5-8.0)
== END 2024-07-27 08:53 | disposition home or self-care (01) ==
LOC: HO.LAB 08:52
PROVIDERS: PCP Internal Medicine; Visit Provider Internal Medicine
DX: E03.8 Other specified hypothyroidism (principal); E11.9 Type 2 diabetes mellitus without complications; E78.1 Pure hyperglyceridemia; M10.9 Gout, unspecified; M47.12 Other spondylosis with myelopathy, cervical region; R74.01 Elevation of levels of liver transaminase levels; R80.8 Other proteinuria
CPT/HCPCS: 36415; 80053; 83036

== ENCOUNTER 2024-08-23 09:48 | Outpatient (AMB) | payer OTHER, SELFPAY ==
--- NOTE | 2024-08-23 10:08 | MHC.OFFVIS ---
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 In the past she was under observation of DAVONTE Hassan. He has postlaminectomy syndrome, Dr. Mcclure operated on his back. He was examined elsewhere and sent for the MRI of the lumbar spine. This MRI was performed at [facility] and unfortunately is not available for me. He reports pain in the lower back with radiation into the bilateral lower extremities more on the right and less on the left he reports radiation of the pain into the right 2nd toe. He also reports weakness in bilateral lower extremities. He is working individual and he works for [employer]. I offered him to visit us in 1 week and bring me for my concentration the MRI from [place]. I also would like to have the report from [place]. In the past this patient was offered spinal cord stimulator trial in this office however he decided not to go for this procedure even though he past psychological evaluation for this. [facility] Medical History Lumbar spondylolysis Lumbar post-laminectomy syndrome Psoriatic arthritis Gout Carpal tunnel syndrome Thyroid disease HTN (hypertension) Diabetes Surgical History Hx of colonoscopy History of breast lump/mass excision (09/23/21) Hx of thumb surgery History of carpal tunnel release History of total left hip replacement Family History Mother HTN (hypertension) Father Hypothyroidism Prostate cancer Social History Alcohol intake: current Alcohol intake frequency: holidays/special occasions only Patient Tobacco Use Status: Never used Tobacco e-Cigarette/Vaping Use: Never Used Second Hand Smoke Exposure: No Review of Systems Const All systems reviewed & are unremarkable except as noted in HPI and below Physical Exam Vital Signs: Last Vital Signs Pulse 104 H 08/23/24 10:09 Resp 18 08/23/24 10:09 BP 160/94 H 08/23/24 10:09 Pulse Ox 100 08/23/24 10:09 Oxygen Delivery Method Room Air 08/23/24 10:09 BMI result Body Mass Index 35.3 Const General: cooperative, no acute distress, well developed, alert, awake and well groomed Nutritional Appearance: obese Orientation/consciousness: patient oriented x3 Limitations: ambulation with cane HEENT Head: Yes normal to inspection and Yes normocephalic Ears: hearing grossly normal bilaterally Eyes General: appearance normal, both eyes and all related structures Visual Miller: normal visual miller by confrontation Pupils: Equal, round and reactive pupils present EOM: EOMs intact bilaterally Neck Neck: Yes normal visual inspection, Yes full ROM, Yes no lymphadenopathy, Yes supple and No anterior neck swelling Resp Effort & Inspection: normal respiratory effort, able to speak in complete sentences, normal respiratory pattern, no audible wheezes, no cough, no respiratory distress and symmetric chest movement Cardio Jugular venous distension: no JVD Bruits: no carotid bruits Peripheral pulses: Peripheral pulses 2+ throughout GI Inspection: Yes normal to inspection, No distended and Yes obesity General: Yes no CVA tenderness Back/Spine/Pelvis Back: no CVA tenderness Cervical Spine: cervical ROM normal, cervical muscular tenderness and No Cervical spine tenderness Thoracic/Lumbar Spine: thoracic and lumbar spine normal to inspection, Thoracic/lumbar spine scar(s), thoraco-lumbar ROM normal, Lasegue's sign positive, paraspinal muscle tenderness, thoraco-lumbar ROM limited, thoraco-lumbar spasm, No thoracic spinal tenderness, No lumbar spinal tenderness and straight leg raise positive left at 30 degrees Pelvis: buttock tenderness Sacroiliac joints: bilaterally Skin General skin exam: no rashes or lesions noted Rashes: no rashes Neuro General: patient oriented x3 and moves all extremities Cranial nerves: Yes Equal, round and reactive pupils present Gait exam (Neuro): Antalgic gait present (mildly) and Assistive device used Assessment & Plan Assessment & Plan (1) Lumbar spondylolysis: Code(s): M43.06 - Spondylolysis, lumbar region Category: Medical (2) Lumbar post-laminectomy syndrome: Code(s): M96.1 - Postlaminectomy syndrome, not elsewhere classified Category: Medical (3) Lumbar radiculopathy: Code(s): M54.16 - Radiculopathy, lumbar region Category: Medical (4) Muscle spasm of back: Code(s): M62.830 - Muscle spasm of back Category: Medical (5) Sacroiliitis: Code(s): M46.1 - Sacroiliitis, not elsewhere classified Category: Medical (6) Sacroiliac joint pain: Code(s): M53.3 - Sacrococcygeal disorders, not elsewhere classified Category: Medical Plan This patient is suffers from radiculopathy of the lumbar spine. Three years ago neurosurgeon did not find any reason to operate on him. Previously he had neurosurgical evaluation and unknown neurosurgery by Dr. Sims. He also reported that [employer] SCS was tried on him but results were negative. He was offered here intrathecal pain pump however he refused. Recently he had MRI of the lumbar spine results of which are not available for me. I will schedule him for the appointment with me in 1 week, he will bring me reports and discs of his MRI images. . Coding Level of Care Code Est Pt Level 3 (46815) Diagnoses Lumbar spondylolysis M43.06 Lumbar post-laminectomy syndrome M96.1 Lumbar radiculopathy M54.16 Muscle spasm of back M62.830 Sacroiliitis M46.1 Sacroiliac joint pain M53.3
[2024-08-23 10:09] VITALS: BP 160/94; PULSE 104; RESP 18; O2SAT 100; BMI 35.3
--- OUTSIDE RECORDS SUMMARY | 2024-08-23 10:21 | XMS_ITS | Patient Health Record ---
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 [address] [place] [phone] [id number] SANDRITA COLEMAN Self - patient is the insured Medical (General) History Medical History History ICD Code diabetes mellitus hypertension Hypothyroidism carpal tunnel Surgical History Surgery Date(Month/Year) left hip replacement carpal tunnel release Finger Surgery - right thumb
== END 2024-08-23 10:32 | disposition home or self-care (01) ==
LOC: HO.PMC 09:48
PROVIDERS: PCP Internal Medicine; Visit Provider Anesthesiology
DX: M43.06 Spondylolysis, lumbar region (principal); M96.1 Postlaminectomy syndrome, not elsewhere classified; M54.16 Radiculopathy, lumbar region; M62.830 Muscle spasm of back; M46.1 Sacroiliitis, not elsewhere classified; M53.3 Sacrococcygeal disorders, not elsewhere classified
CPT/HCPCS: 99213

== ENCOUNTER 2024-10-18 08:44 | Outpatient (AMB) | payer OTHER, SELFPAY ==
--- OUTSIDE RECORDS SUMMARY | 2024-10-18 09:27 | XMS_ITS | Patient Health Record ---
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 of oral hypoglycemic drugs (Z79.84) Active confirmed Plan Of Treatment Future Test Test Name Order Date COLONOSCOPY 12/07/2019 Insurance Providers Payer Name Payer Address Payer Phone Subscriber Number Group Number Insured Name Patient Relationship to Insured Coverage Start Date Coverage End Date [facility] [address] [place] [phone] [id number] SANDRITA COLEMAN Self - patient is the insured Medical (General) History Medical History History ICD Code diabetes mellitus hypertension Hypothyroidism carpal tunnel Surgical History Surgery Date(Month/Year) left hip replacement carpal tunnel release Finger Surgery - right thumb
--- NOTE | 2024-10-18 09:43 | A.OFFVIS_ITS ---
Vital Signs 3 10/18/24 09:45 Weight 233 lb BP 159/89 H Blood Pressure Location Lt brachial Position Sitting Respiration 18 Pulse 80 Pulse Source Pulse Oximeter Pulse Oximetry (%) 100 Oxygen Delivery Method Room Air Intake Visit Reasons: TREATMENT OPTIONS Aviation Project Manager Required: No Allergies etanercept (From Enbrel) Allergy (Intermediate, Verified 10/18/24 09:44) Rash Penicillins (PENICILLINS) Allergy (Unknown, Verified 10/18/24 09:44) unknown reaction-childhood allergy HPI Comments Details: Amando is back in my office to discuss results of the MRI at [facility]. He complains on pain in the lower back exacerbated by prolonged sitting and flexing forward. There is tenderness on palpation in the projection of the lower lumbar spine. He had physical therapy in the past which was not effective to control his pain. He had injections as below which were not helping his pain. He tried NSAIDs which alleviate his pain minimally if at all. The MRI demonstrated very prominent Modic type 2 changes at S1 at L5 and less advanced changes at L4 and L3. I offered the patient today to perform BVN radiofrequency ablation intercept of basivertebral nerves of the L3, L4, L5, S1 vertebra. I will schedule the patient for the procedure. Today we discussed risks and benefits of the procedure including risks of bleeding infection peripheral nerve damage spinal cord damage and headache. He has postlaminectomy syndrome, Dr. Mcclure operated on his back. He was examined elsewhere and sent for the MRI of the lumbar spine. There is no hardware in his back. In the past I performed diagnostic SI joint injection which gave equivocal results. He is working individual and he works for [employer]. [facility] Medical History Lumbar spondylolysis Lumbar post-laminectomy syndrome Psoriatic arthritis Gout Carpal tunnel syndrome Thyroid disease HTN (hypertension) Diabetes Surgical History Hx of colonoscopy History of breast lump/mass excision (09/23/21) Hx of thumb surgery History of carpal tunnel release History of total left hip replacement Family History Mother HTN (hypertension) Father Hypothyroidism Prostate cancer Social History Alcohol intake: current Alcohol intake frequency: holidays/special occasions only Patient Tobacco Use Status: Never used Tobacco e-Cigarette/Vaping Use: Never Used Second Hand Smoke Exposure: No Review of Systems Const All systems reviewed & are unremarkable except as noted in HPI and below Physical Exam Vital Signs: Last Vital Signs Pulse 80 10/18/24 09:45 Resp 18 10/18/24 09:45 BP 159/89 H 10/18/24 09:45 Pulse Ox 100 10/18/24 09:45 Oxygen Delivery Method Room Air 10/18/24 09:45 Const General: cooperative, no acute distress, well developed, alert, awake and well groomed Nutritional Appearance: obese Orientation/consciousness: patient oriented x3 Limitations: ambulation with cane HEENT Head: Yes normal to inspection and Yes normocephalic Ears: hearing grossly normal bilaterally Eyes General: appearance normal, both eyes and all related structures Visual Salazar: normal visual salazar by confrontation Pupils: Equal, round and reactive pupils present EOM: EOMs intact bilaterally Neck Neck: Yes normal visual inspection, Yes full ROM, Yes no lymphadenopathy, Yes supple and No anterior neck swelling Resp Effort & Inspection: normal respiratory effort, able to speak in complete sentences, normal respiratory pattern, no audible wheezes, no cough, no respiratory distress and symmetric chest movement Cardio Jugular venous distension: no JVD Bruits: no carotid bruits Peripheral pulses: Peripheral pulses 2+ throughout GI Inspection: Yes normal to inspection, No distended and Yes obesity General: Yes no CVA tenderness Back/Spine/Pelvis Other: Able to stand on bilateral tiptoes in bilateral heels without difficulty. Flexing forward greatly aggravate his pain. Prolonged sitting aggravate his pain. Valsalva maneuver aggravate his pain. SLR is negative bilaterally. Benedicto test is equivocal bilaterally. Pelvic compression test is equivocal bilaterally. Back: no CVA tenderness Cervical Spine: Cervical spine tenderness Skin General skin exam: no rashes or lesions noted Rashes: no rashes Neuro General: patient oriented x3 and moves all extremities Cranial nerves: Yes Equal, round and reactive pupils present Gait exam (Neuro): Antalgic gait present (mildly) and Assistive device used Results Reviewed Results Reviewed: XR lumbar spine 6V w bending 05/25/21 EXAMINATION: XR LUMBOSACRAL SPINE WITH OBLIQUES CLINICAL INFORMATION: Radiculopathy. Lumbar region. FINDINGS: There is normal lumbar lordosis. There is loss of L5-S1 disc height. Rest the disc heights are maintained normal. There is mild ventral spondylosis L1-L2, L2-L3 and L3-L4 disc levels. No acute fracture or lytic process seen. There is no pars defect or listhesis on oblique view. No subluxation seen on flexion-extension views. The SI joints are symmetrical and normal. There is a total left hip prosthesis. The prosthetic components are in satisfactory position. No soft tissue abnormality seen. IMPRESSION: Mild degenerative disc changes L5-S1 disc level. There is no subluxation seen on flexion-extension views. No pars defect or listhesis on oblique views. There is mild posterior spondylosis L2-L3, L3-L4 and L4-L5 disc levels. Assessment & Plan Assessment & Plan (1) Lumbar spondylolysis: Code(s): M43.06 - Spondylolysis, lumbar region Category: Medical (2) Lumbar post-laminectomy syndrome: Code(s): M96.1 - Postlaminectomy syndrome, not elsewhere classified Category: Medical (3) Muscle spasm of back: Code(s): M62.830 - Muscle spasm of back Category: Medical (4) Sacroiliitis: Code(s): M46.1 - Sacroiliitis, not elsewhere classified Category: Medical (5) Sacroiliac joint pain: Code(s): M53.3 - Sacrococcygeal disorders, not elsewhere classified Category: Medical (6) Vertebrogenic low back pain: Code(s): M54.51 - Vertebrogenic low back pain Category: Medical Plan This patient is suffering from 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 I will schedule him for basivertebral nerves radiofrequency ablation intercept. Risks and benefits were carefully explained to the patient. Physical exam see as above. He exhausted conservative measures to treat his pain. I will schedule him for the procedure as soon as possible. Detailed conversation was held today to explained the patient risks and benefits of the procedure as well as alternatives for the treatment. Patient Instructions: I here by testify that I spent 30 minutes in conversation with this patient as well as planning his care and organizing this note. Coding Level of Care Code Est Pt Level 4 (40776) Diagnoses Lumbar spondylolysis M43.06 Lumbar post-laminectomy syndrome M96.1 Muscle spasm of back M62.830 Sacroiliitis M46.1 Sacroiliac joint pain M53.3 Vertebrogenic low back pain M54.51
[2024-10-18 09:45] VITALS: BP 159/89; PULSE 80; RESP 18; O2SAT 100
== END 2024-10-18 10:26 | disposition home or self-care (01) ==
PROVIDERS: PCP Internal Medicine; Visit Provider Anesthesiology
DX: M43.06 Spondylolysis, lumbar region (principal); M96.1 Postlaminectomy syndrome, not elsewhere classified; M62.830 Muscle spasm of back; M46.1 Sacroiliitis, not elsewhere classified; M53.3 Sacrococcygeal disorders, not elsewhere classified; M54.51 Vertebrogenic low back pain
CPT/HCPCS: 99214

== ENCOUNTER 2024-10-30 08:47 | Outpatient (REF) | payer OTHER, SELFPAY ==
--- OUTSIDE RECORDS SUMMARY | 2024-10-30 09:56 | XMS_ITS | Patient Health Record ---
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 of non-steroidal anti-inflammator ies (NSAID) (Z79.1) Active confirmed Problem [id number] jail (current) use of oral hypoglycemic drugs (Z79.84) Active confirmed Plan Of Treatment Future Test Test Name Order Date COLONOSCOPY 12/07/2019 Insurance Providers Payer Name Payer Address Payer Phone Subscriber Number Group Number Insured Name Patient Relationship to Insured Coverage Start Date Coverage End Date [facility] [address] [place] [phone] [id number] SANDRITA COLEMAN Self - patient is the insured Medical (General) History Medical History History ICD Code diabetes mellitus hypertension Hypothyroidism carpal tunnel Surgical History Surgery Date(Month/Year) left hip replacement carpal tunnel release Finger Surgery - right thumb
[2024-10-30 10:08] LABS: Hemoglobin A1C 196.7440 umol/L; Total Hemoglobin (HGBA1C) 3633.2057 umol/L
[2024-10-30 10:43] LABS: Alanine Aminotransferase 45 U/L (0-40); Albumin Level 5.0 g/dL (3.5-5.0); Alkaline Phosphatase 88 U/L (39-117); Anion Gap 14 (12-20); Aspartate Amino Transferase 34 U/L (5-37); Blood Urea Nitrogen 16 mg/dL (9-16); Calcium 9.2 mg/dL (8.4-10.2); Carbon Dioxide 26 mmol/L (22-29); Chloride 107 mmol/L (96-108); Cholesterol 250 mg/dL (<200); Estimated Glomerular Filt Rate > 60; HDL Cholesterol 45 mg/dL (>40); Potassium 4.4 mmol/L (3.3-5.1); Sodium 143 mmol/L (135-145); Total Protein 7.9 g/dL (6.5-8.0); Triglycerides 327 mg/dL (<150)
[2024-10-30 10:59] LABS: Thyroid Stimulating Hormone 1.03 uIU/mL (0.32-4.0)
== END 2024-10-30 08:48 | disposition home or self-care (01) ==
LOC: HO.LAB 08:47
PROVIDERS: PCP Internal Medicine; Visit Provider Internal Medicine
DX: R74.01 Elevation of levels of liver transaminase levels (principal); E03.9 Hypothyroidism, unspecified; E11.9 Type 2 diabetes mellitus without complications; M47.16 Other spondylosis with myelopathy, lumbar region; Z68.37 Body mass index [BMI] 37.0-37.9, adult
CPT/HCPCS: 36415; 80053; 80061; 83036; 84443

== ENCOUNTER 2024-12-28 05:41 | Day surgery (SDC) | payer OTHER, SELFPAY ==
[2024-12-26 10:07] VITALS: BMI 35.4
--- NOTE | 2024-12-26 10:20 | HO.ANESPROP2 ---
Documented by User: Fatou Nguyễn NP 12/26/24 10:22 HPI - Anesthesia Eval Consult details Narrative: 54yo M for L3,L4,L5 and S1 Basivertebral Nerve Ablation (Intracept RFA) PMFSH Active Problems Active Problems: All Active Problems Vertebrogenic low back pain (Acute) Encounter for screening colonoscopy (Acute) Sacroiliac joint pain (Acute) Sacroiliitis (Acute) Breast mass, right (Acute) Muscle spasm of back (Acute) Lumbar radiculopathy (Acute) Inflammatory arthritis (Acute) Left wrist pain (Acute) Past Medical History Medical History Lumbar spondylolysis Lumbar post-laminectomy syndrome Psoriatic arthritis Gout Carpal tunnel syndrome Thyroid disease HTN (hypertension) Diabetes Family History Family History Mother HTN (hypertension) Father Hypothyroidism Prostate cancer Family history of problems with anesthesia: No Surgical History Surgical History Hx of colonoscopy History of breast lump/mass excision (09/23/21) Hx of thumb surgery History of carpal tunnel release History of total left hip replacement History of Problems with Anesthesia: No Social History Social History Are you a primary careers adviser to a significant other at home: No Do you presently have visiting nurse or other home services: No Alcohol intake: current Alcohol intake frequency: does not drink Patient Tobacco Use Status: Never used Tobacco e-Cigarette/Vaping Use: Never Used Second Hand Smoke Exposure: No Use of substances other than those prescribed or required for medical reasons: No Have you been hit, kicked, punched, or otherwise hurt by someone within the past year? If so, by whom?: No Are you DNR?: No Advance Directives: No Advance Directives Information Provided: Yes Advance Directives on File: No Meds Allergies Allergy/AdvReac Type Severity Reaction Status Date / Time etanercept (From Enbrel) Allergy Intermediate Rash Verified 10/18/24 09:44 Penicillins (PENICILLINS) Allergy Unknown unknown Verified 10/18/24 09:44 reaction-childhood allergy Home Medications ?Medication ?Instructions ?Recorded ?Confirmed ?Last Taken ?Type atorvastatin 80 mg tablet 80 mg PO DAILY 05/23/20 12/26/24 Unknown History multivitamin 1 tab PO DAILY 05/23/20 12/26/24 Unknown History sertraline 100 mg tablet 100 mg PO DAILY 05/23/20 12/26/24 Unknown History lisinopril 40 mg tablet 40 mg PO DAILY 08/12/20 12/26/24 Unknown History allopurinol 300 mg tablet 600 mg PO BID gout 05/25/21 12/26/24 Unknown History amlodipine 10 mg tablet 10 mg PO DAILY 09/03/21 12/26/24 12/28/24 History metformin 1,000 mg tablet 1,000 mg PO BID 09/03/21 12/26/24 Unknown History metronidazole 0.75 % topical cream 1 appl topical QAM 09/03/21 12/26/24 Unknown History levothyroxine 50 mcg tablet 50 mcg PO DAILY 05/17/23 12/26/24 12/28/24 History loratadine 10 mg tablet 10 mg PO DAILY 05/17/23 12/26/24 Unknown History Exam Height,Weight and Vital Signs: Height 5 ft 8 in Weight 105.687 kg Pertinent Lab Results Pertinent Lab Results: Laboratory Tests 04/19/24 10/30/24 07:15 08:57 WBC 7.4 Hgb 13.7 L Hct 40.9 L Plt Count 177 Sodium 143 Potassium 4.4 Chloride 107 Carbon Dioxide 26 BUN 16 Creatinine 1.16 Narrative Narrative: EKG 03/2024 Vent. Rate : 114 BPM Atrial Rate : 114 BPM P-R Int : 182 ms QRS Dur : 88 ms QT Int : 328 ms P-R-T Axes : 21 5 9 degrees QTcB Int : 452 ms Sinus tachycardia Otherwise normal ECG No previous ECGs available Assessment and Plan Assessment Anesthesia Assessment: Chart Reviewed Final Anesthetic Review Family History of Problems with Anesthesia: No History of Problems with Anesthesia: No Documented by User: Jeanmarie Morelos MD 12/28/24 07:27 COUNT INCLUDES THE [facility] Past Medical History Medical History Lumbar spondylolysis Lumbar post-laminectomy syndrome Psoriatic arthritis Gout Carpal tunnel syndrome Thyroid disease HTN (hypertension) Diabetes Family History Family History Mother HTN (hypertension) Father Hypothyroidism Prostate cancer Surgical History Surgical History Hx of colonoscopy History of breast lump/mass excision (09/23/21) Hx of thumb surgery History of carpal tunnel release History of total left hip replacement Social History Social History Are you a primary careers adviser to a significant other at home: No Do you presently have visiting nurse or other home services: No Alcohol intake: current Alcohol intake frequency: does not drink Patient Tobacco Use Status: Never used Tobacco e-Cigarette/Vaping Use: Never Used Second Hand Smoke Exposure: No Use of substances other than those prescribed or required for medical reasons: No Have you been hit, kicked, punched, or otherwise hurt by someone within the past year? If so, by whom?: No Are you DNR?: No Advance Directives: No Advance Directives Information Provided: Yes Advance Directives on File: No Meds Allergies Allergy/AdvReac Type Severity Reaction Status Date / Time etanercept (From Enbrel) Allergy Intermediate Rash Verified 10/18/24 09:44 Penicillins (PENICILLINS) Allergy Unknown unknown Verified 10/18/24 09:44 reaction-childhood allergy Home Medications ?Medication ?Instructions ?Recorded ?Confirmed ?Last Taken ?Type atorvastatin 80 mg tablet 80 mg PO DAILY 05/23/20 12/26/24 Unknown History multivitamin 1 tab PO DAILY 05/23/20 12/26/24 Unknown History sertraline 100 mg tablet 100 mg PO DAILY 05/23/20 12/26/24 Unknown History lisinopril 40 mg tablet 40 mg PO DAILY 08/12/20 12/26/24 Unknown History allopurinol 300 mg tablet 600 mg PO BID gout 05/25/21 12/26/24 Unknown History amlodipine 10 mg tablet 10 mg PO DAILY 09/03/21 12/26/24 12/28/24 History metformin 1,000 mg tablet 1,000 mg PO BID 09/03/21 12/26/24 Unknown History metronidazole 0.75 % topical cream 1 appl topical QAM 09/03/21 12/26/24 Unknown History levothyroxine 50 mcg tablet 50 mcg PO DAILY 05/17/23 12/26/24 12/28/24 History loratadine 10 mg tablet 10 mg PO DAILY 05/17/23 12/26/24 Unknown History Exam Exam Date and Time: 12/28/24 Airway Mallampati Class: II TM Dist: >3cm Neck ROM: Limited Heart: rrr Lungs: ctab vesicular Assessment and Plan Assessment Anesthesia Assessment: Anesthesia Plan Discussed Final Anesthetic Review NPO: Yes ASA Class: III Final Preanesthetic Review: No Changes in Pt Med Stat, Meds/Allgs Chart Reviewed, Consent Obtained/Reviewed and Anes Risks/Benef Reviewed Patient Risk: Low Procedure Risk: Low Anesthetic Plan Anesthetic Plan: GA Disposition: Standard PACU
[2024-12-28] VITALS (7 sets, daily range): BP systolic 113–151; BP diastolic 62–89; PULSE 84–97; RESP 16–18; TEMP 36.6–36.7; O2SAT 95–97; BMI 34.9
--- NOTE | ~2024-12-28 | FL_ITS ---
EXAMINATION: FL GUIDANCE ONLY HISTORY: L3 L4 L5 S1 intracept COMPARISON: None available. TECHNIQUE: Fluoroscopy time: 7 minutes, 54 seconds. Cumulative Dose: 382.92 mGy. DAP: 133.9534 Gycm2 Images: 61. FINDINGS: Fluoroscopic spot films of the lumbar spine demonstrate placement of probes in the L3, L4, L5, and S1 vertebral bodies. FL/FL guidance in OR IMPRESSION: Fluoroscopy during procedure. Please see procedure report for additional information. Electronically signed by: Nikunj Sanford MD 12/28/2024 11:04 AM STANISLAV ZACARIAS
[2024-12-28] MEDS: Lactated Ringers 1,000 ML 100 ML IVCONT (07:01)
--- NOTE | 2024-12-28 07:12 | P.HPSUR_ITS ---
Pre-Procedural Eval Section A - 24 Hr Update-Section A only Date of Service: 12/28/24 The patient is an INPATIENT: No Changes since office visit: Yes Patient answered all questions The patient has been examined within 24 hours of the surgical procedure. The History & Physical has been completed within 30 days and I have reviewed it.: No Section B - Complete if H&P > 30 days Chief Complaint: Vertebrogenic low back pain Details of Present Illness: as above Relevant Family History (Specify if Yes): No Relevant Social History: None Present Medications: None Medical History: No relevant PMH History of Previous Operations: No relevant previous surgery Allergies: Allergies Allergy/AdvReac Type Severity Reaction Status Date / Time etanercept (From Enbrel) Allergy Intermediate Rash Verified 10/18/24 09:44 Penicillins (PENICILLINS) Allergy Unknown unknown Verified 10/18/24 09:44 reaction-childhood allergy Review of Systems Sugical H&P ROS: Negative: Cardiovascular, Respiratory, Neurological, Psychiatric, Hem-Onc, Allergic/Immunologic, Gastrointestinal, Genitourinary, Integumentary, Endocrine and Eyes/Ears/Nose/Throat and Yes, Specify: Constitu tion (obesity) and Musculoskeletal (vertebrogenic low back pain, radiculopathy lumbar) Exam Surgical H&P Exam: Normal: HEENT, Normal: Heart, Normal: Lungs, Normal: Extremities, Normal: Skin and Normal: Neurological and Significant Findings: Abdomen (enlarged) Plan Diagnosis/Plan: Unchanged I have reviewed the history and physical and performed a pertinent physical examination on my patient. No changes have occurred unless specified. Time Spent With Patient Time: Total time managing care of this patient today _5___ minutes.
--- NOTE | 2024-12-28 10:03 | P.BOP_ITS ---
Brief Operative Note Date of Service: 12/28/24 Pre-op diagnosis: Vertebra genic low back pain Procedure: BVN radiofrequency ablation L3, L4, L5, S1. Surgeon: Tanvir Lovelace MD Was an Applications [employer] used for this Procedure?: No Estimated blood loss (mL): 28 Condition: stable Disposition: PACU
--- NOTE | 2024-12-28 10:05 | P.OP_ITS ---
Operative Note Operative Note Date of Service: 12/28/24 Narrative: Basivertebral nerve (BVN) ablation? Intracept Procedure L3, L4, L5, S1 Informed consent was explained, risks and benefits were explained to the patient as well as alternatives. Risks delineated as risks of bleeding, infection, peripheral nerve damage, spinal cord damage, headache, epidural hematoma and other unspecified complications. Procedure Time Out: Patient ID confirmed, correct procedure to be performed, correct site and/or side for procedure , need for antibiotic administration, need for DVT prophylaxis, risk of fire.? The patient received cefazolin 2 g intravenously 25 minutes before onset of the procedure as well as [id number] mg intravenously push. The entire back was sterilely prepped with ChloraPrep twice and draped with sterile self adhesive utility towels and covered with full body drape.? Two sterilely draped C-arms were positioned in fixed anterior posterior and lateral positions alongside the patient's torso.? Sterilely draped C-arm was moved to visualize the target at the superolateral aspect of S1 vertebral body on the right C-arm was rotated to sq of the superior endplate at S1 and positioned in [place] positioned. Superior lateral right S1 pedicle was identified and the skin and try point was identified and infiltrated with mixture of 2% lidocaine and ropivacaine 0.5% one-to-one using 25 gauge 1- 1/2 inch needle. 22 gauge 5 in spinal needle was used to anesthetize the tract to the pedicle and periosteum and confirm the introducer cannula trajectory. A skin incision was made with 11 blade scalpel 5 mm. The introducer cannula with gloria tip was inserted through the skin subcutaneous tissue and paraspinal muscles until bony contact was made. The position was checked in the AP and lateral plane. Using mallet the trocar was then advanced through the pedicle to the posterior aspect of vertebral body of S1 using a combination of AP and lateral views intermittently to ensure appropriate traversing of the pedicle and no breaching of the pedicle medial laterally or inferiorly. Once the trocar was in the posterior aspect of L5 vertebral body introducer cannula with steep bevel reach the vertebral body passing through the right pedicle the trocar was removed from the cannula and the curved cannula assembly with the knitting all J stylette was inserted. This pinwheel was rotated counter-clockwise permitting excursion of the J stylet. The curved cannula assembly than was advanced using a mallet in 1-2 mm increments. The J stylette was observed to traverse the vertebral body in AP and lateral views. Target was reached when tip of the stylette was 55% anterior to the posterior wall of the S1 in the lateral view and midway between the superior and inferior endplates and it across the midline of the S1 spinous process in the AP view. The stylette was then removed. The bipolar radiofrequency RF probe was inserted into the introducer cannula in its ablation positioned. This pain we will was rotated clockwise to retract the PE EK sleeve to expose the proximal electrode on the radiofrequency probe. The BVN was then ablated using the standard algorithm for 15 minutes. Sterilely draped C-arm was moved to visualize the target at the superolateral aspect of the L5 vertebral body. The C-arm was rotated to square off the superior endplate at L5 and rotated left to obtain an oblique view. The superolateral left L5 pedicle was identified, and the skin entry point identified and infiltrated with mixture of 2% lidocaine with ropivacaine 0.5% one to one using a 25- gauge 1-1/2 inch needle. A 22-gauge 5-inch spinal needle was used to anesthetize the track to the pedicle and periosteum and confirm the introducer cannula trajectory. A skin incision was made with 11 blade scalpel 5 mm. The introducer cannula with bevel tip was then introduced through the skin, subcutaneous tissue and paraspinal muscle until bony contact was made. The position was checked in the AP and lateral plane. Using a mallet, the trocar was then advanced through the pedicle to the posterior aspect of the vertebral body using a combination of AP and lateral views to ensure appropriate traversing of the pedicle and no breaching of the pedicle medially or inferiorly. Once the trocar was in the posterior aspect of the L5 vertebral body then introducer cannula with tip bevel reached the vertebral body passing through the left pedicle, the trocar was removed from the cannula and the curved cannula assembly with the nitinol J-stylet was inserted. The spin wheel was rotated counterclockwise permitting excursion of the J- stylet. The curved cannula assembly was then advanced using a mallet in 1-2 mm increments. The J-stylet was observed to traverse the vertebral body in the AP and lateral views. Target was reached when the tip of the stylet was 30 % anterior of the posterior wall of the L5 in the lateral view (midway between the superior and inferior endplates) and it crossed the midline of the L5 spinous process in the AP view. The stylet was then removed. The bipolar radiofrequency (RF) probe was inserted into the introducer cannula in its ablation position. The spin wheel was rotated clockwise to retract the PEEK sleeve to expose the proximal electrode on the radiofrequency probe. The BVN was then ablated using [employer]?s standard RFG algorithm for 7 minutes.? While the ablation was occurring at below level the C-arm was moved to visualize the target at the superolateral aspect of the L4 vertebral body. The C-arm was rotated to square off the superior endplate at L4 . The superolateral ?right L4 pedicle was identified, and the skin entry point identified and infiltrated with mixture of 2% lidocaine with ropivacaine 0.5% one to one using a 25- gauge 1- 1/2 inch needle. A 22-gauge 5-inch spinal needle was used to anesthetize the track to the pedicle and periosteum and confirm the introducer cannula trajectory. A skin incision was made with 11 scalpel blade 5 mm. The introducer cannula with bevel tip was then introduced through the skin, subcutaneous tissue and paraspinal muscle until bony contact was made. The position was checked in the AP and lateral plane. Using a mallet, the trocar was then advanced through the pedicle to the posterior aspect of the vertebral body using a combination of AP and lateral views to ensure appropriate traversing of the pedicle and no breaching of the pedicle medially or inferiorly. Once the trocar was in the posterior aspect of the L4 vertebral body, the trocar was removed from the cannula and the curved cannula assembly with the nitinol J-stylet was inserted. The spin wheel was rotated counterclockwise permitting excursion of the J- stylet. The curved cannula assembly was then advanced using a mallet in 1-2 mm increments. The J-stylet was observed to traverse the vertebral body in the AP and lateral views. Target was reached when the tip of the stylet was 20 % anterior of the posterior wall of the L4 on the lateral view and it crossed the midline of the L4 spinous process in the AP view. The stylet was then removed. The bipolar radiofrequency (RF) probe was removed from the previous vertebral body, the tip cleaned and was inserted into the introducer cannula in its ablation position. The spin wheel was rotated clockwise to retract the PEEK sleeve to expose the proximal electrode on the radiofrequency probe. The BVN was then ablated using [employer]?s standard RFG algorithm for 7 minutes. The radiofrequency ablation of the L3 basivertebral nerve was performed from the right side in the similar fashion as described above using transpedicular approach.
[2024-12-28] MEDS: oxyCODONE HCl Immed Release 5 MG TABLET PO (10:10)
== END 2024-12-28 10:54 | disposition home or self-care (01) ==
PROVIDERS: PCP Internal Medicine; Visit Provider Anesthesiology
PROC: (CPT 64628; principal; 2024-12-28 07:30)
DX: M54.51 Vertebrogenic low back pain (principal); M43.06 Spondylolysis, lumbar region; M96.1 Postlaminectomy syndrome, not elsewhere classified; M62.830 Muscle spasm of back; M46.1 Sacroiliitis, not elsewhere classified; M53.3 Sacrococcygeal disorders, not elsewhere classified; M10.9 Gout, unspecified; L40.50 Arthropathic psoriasis, unspecified; I10 Essential (primary) hypertension; E11.9 Type 2 diabetes mellitus without complications; Z96.642 Presence of left artificial hip joint; E07.9 Disorder of thyroid, unspecified; Z79.84 Long term (current) use of oral hypoglycemic drugs; Z79.899 Other long term (current) drug therapy; Z88.0 Allergy status to penicillin; Z88.8 Allergy status to other drugs, medicaments and biological substances; Z98.890 Other specified postprocedural states
CPT/HCPCS: 64628; 64629 ×2; C1889; J0131; J0736; J1100; J1171; J2003; J2371; J2704; J2795; J3010

== ENCOUNTER → 2024-12-28 05:41 | Outpatient (BNV) | payer OTHER, SELFPAY | PROVIDERS: PCP Internal Medicine; Visit Provider Anesthesiology | DX: M54.16 Radiculopathy, lumbar region (principal) | CPT/HCPCS: 64628; 64629 ==

== ENCOUNTER 2025-01-03 11:25 | Outpatient (AMB) | payer OTHER, SELFPAY ==
[2025-01-03 11:39] VITALS: BP 150/78; PULSE 106; RESP 16; O2SAT 95
--- NOTE | 2025-01-03 11:39 | A.OFFVIS_ITS ---
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 Dressing was removed. The incisions are clean. No pathological discharge. No swelling no redness. No signs of inflammation. The wounds were washed with ChloraPrep and dressed with 4x4s dry and Tegaderm. Patient reports significant improvement with pain, improved mobility, improved activities of daily living. 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 By his work duties he needs to perform heavy lifting and long walking. I explained to the patient that he better we stand from heavy lifting and low walking as well as avoid bumpy rides in the car or any other vehicle while he is recovering from the procedure. mobility limitations will be for the next 10 weeks. Patient expressed understanding. Prior: He complains on pain in the lower back exacerbated by prolonged sitting and flexing forward. There is tenderness on palpation in the projection of the lower lumbar spine. He had physical therapy in the past which was not effective to control his pain. He had injections as below which were not helping his pain. He tried NSAIDs which alleviate his pain minimally if at all. The MRI demonstrated very prominent Modic type 2 changes at S1 at L5 and less advanced changes at L4 and L3. I offered the patient today to perform BVN radiofrequency ablation intercept of basivertebral nerves of the L3, L4, L5, S1 vertebra. I will schedule the patient for the procedure. Today we discussed risks and benefits of the procedure including risks of bleeding infection peripheral nerve damage spinal cord damage and headache. He has postlaminectomy syndrome, Dr. Mcclure operated on his back. He was examined elsewhere and sent for the MRI of the lumbar spine. There is no hardware in his back. In the past I performed diagnostic SI joint injection which gave equivocal results. He is working individual and he works for [employer]. [facility] Medical History Lumbar spondylolysis Lumbar post-laminectomy syndrome Psoriatic arthritis Gout Carpal tunnel syndrome Thyroid disease HTN (hypertension) Diabetes Surgical History Hx of colonoscopy History of breast lump/mass excision (09/23/21) Hx of thumb surgery History of carpal tunnel release History of total left hip replacement Family History Mother HTN (hypertension) Father Hypothyroidism Prostate cancer Social History Are you a primary care manager to a significant other at home: No Do you presently have visiting nurse or other home services: No Alcohol intake: current Alcohol intake frequency: does not drink Comment: COUNTS CORRECT Patient Tobacco Use Status: Never used Tobacco e-Cigarette/Vaping Use: Never Used Second Hand Smoke Exposure: No Review of Systems Const All systems reviewed & are unremarkable except as noted in HPI and below Physical Exam Vital Signs: Last Vital Signs Pulse 106 H 01/03/25 11:39 Resp 16 01/03/25 11:39 BP 150/78 H 01/03/25 11:39 Pulse Ox 95 01/03/25 11:39 Oxygen Delivery Method Room Air 01/03/25 11:39 Const General: cooperative, no acute distress, well developed, alert, awake and well groomed Nutritional Appearance: obese Orientation/consciousness: patient oriented x3 Limitations: ambulation with cane HEENT Head: Yes normal to inspection and Yes normocephalic Ears: hearing grossly normal bilaterally Eyes General: appearance normal, both eyes and all related structures Visual Salazar: normal visual salazar by confrontation Pupils: Equal, round and reactive pupils present EOM: EOMs intact bilaterally Neck Neck: Yes normal visual inspection, Yes full ROM, Yes no lymphadenopathy, Yes supple and No anterior neck swelling Resp Effort & Inspection: normal respiratory effort, able to speak in complete sentences, normal respiratory pattern, no audible wheezes, no cough, no respiratory distress and symmetric chest movement Cardio Jugular venous distension: no JVD Bruits: no carotid bruits Peripheral pulses: Peripheral pulses 2+ throughout GI Inspection: Yes normal to inspection, No distended and Yes obesity General: Yes no CVA tenderness Back/Spine/Pelvis Other: Able to stand on bilateral tiptoes in bilateral heels without difficulty. Flexing forward greatly aggravate his pain. Prolonged sitting aggravate his pain. Valsalva maneuver aggravate his pain. SLR is negative bilaterally. Benedicto test is equivocal bilaterally. Pelvic compression test is equivocal bilaterally. Back: no CVA tenderness Cervical Spine: Cervical spine tenderness Skin General skin exam: no rashes or lesions noted Rashes: no rashes Neuro General: patient oriented x3 and moves all extremities Cranial nerves: Yes Equal, round and reactive pupils present Gait exam (Neuro): Antalgic gait present (mildly) and Assistive device used Results Reviewed Results Reviewed: XR lumbar spine 6V w bending 05/25/21 EXAMINATION: XR LUMBOSACRAL SPINE WITH OBLIQUES CLINICAL INFORMATION: Radiculopathy. Lumbar region. FINDINGS: There is normal lumbar lordosis. There is loss of L5-S1 disc height. Rest the disc heights are maintained normal. There is mild ventral spondylosis L1-L2, L2-L3 and L3-L4 disc levels. No acute fracture or lytic process seen. There is no pars defect or listhesis on oblique view. No subluxation seen on flexion-extension views. The SI joints are symmetrical and normal. There is a total left hip prosthesis. The prosthetic components are in satisfactory position. No soft tissue abnormality seen. IMPRESSION: Mild degenerative disc changes L5-S1 disc level. There is no subluxation seen on flexion-extension views. No pars defect or listhesis on oblique views. There is mild posterior spondylosis L2-L3, L3-L4 and L4-L5 disc levels. Assessment & Plan Assessment & Plan (1) Lumbar spondylolysis: Code(s): M43.06 - Spondylolysis, lumbar region Category: Medical (2) Lumbar post-laminectomy syndrome: Code(s): M96.1 - Postlaminectomy syndrome, not elsewhere classified Category: Medical (3) Muscle spasm of back: Code(s): M62.830 - Muscle spasm of back Category: Medical (4) Sacroiliitis: Code(s): M46.1 - Sacroiliitis, not elsewhere classified Category: Medical (5) Sacroiliac joint pain: Code(s): M53.3 - Sacrococcygeal disorders, not elsewhere classified Category: Medical (6) Vertebrogenic low back pain: Code(s): M54.51 - Vertebrogenic low back pain Category: Medical Plan This patient is suffering from 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 He is status post BVN RFA intercept. He is doing very well see discussion as above. Next week we will remove the sutures. Coding Level of Care Code Est Pt Level 3 (50217) Diagnoses Lumbar spondylolysis M43.06 Lumbar post-laminectomy syndrome M96.1 Muscle spasm of back M62.830 Sacroiliitis M46.1 Sacroiliac joint pain M53.3 Vertebrogenic low back pain M54.51
--- OUTSIDE RECORDS SUMMARY | 2025-01-03 14:40 | XMS_ITS | Patient Health Record ---
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 non-steroidal anti-inflammatori es (NSAID) (Z79.1) Active confirmed Problem Long-term current use of drug therapy ([id number]) senior living (current) use of oral hypoglycemic drugs (Z79.84) Active confirmed Plan Of Treatment Future Test Test Name Order Date COLONOSCOPY 12/07/2019 Insurance Providers Payer Name Payer Address Payer Phone Subscriber Number Group Number Insured Name Patient Relationship to Insured Coverage Start Date Coverage End Date MEDICA[place] OF [place] [address] [place] [phone] [id number] SANDRITA COLEMAN Self - patient is the insured Medical (General) History Medical History History ICD Code diabetes mellitus hypertension Hypothyroidism carpal tunnel Surgical History Surgery Date(Month/Year) left hip replacement carpal tunnel release Finger Surgery - right thumb
== END 2025-01-03 11:38 | disposition home or self-care (01) ==
LOC: HO.PMC 11:25
PROVIDERS: PCP Internal Medicine; Visit Provider Anesthesiology
DX: M43.06 Spondylolysis, lumbar region (principal); M96.1 Postlaminectomy syndrome, not elsewhere classified; M62.830 Muscle spasm of back; M46.1 Sacroiliitis, not elsewhere classified; M53.3 Sacrococcygeal disorders, not elsewhere classified; M54.51 Vertebrogenic low back pain
CPT/HCPCS: 99024

== ENCOUNTER 2025-01-10 10:24 | Outpatient (AMB) | payer OTHER, SELFPAY ==
--- NOTE | 2025-01-10 10:33 | A.OFFVIS_ITS ---
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 Dressing was removed. The incisions are clean. No pathological discharge. No swelling no redness. No signs of inflammation. The wounds were washed with ChloraPrep , the silk sutures were removed using sterile suture scissors, sterile Band-Aids were applied. Hygiene limitations and activities limitations were explained for the patient. He requests me to write him a note for the next 3 days work relief. I signed a note for him. Patient reports significant improvement with pain, improved mobility, improved activities of daily living. 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 By his work duties he needs to perform heavy lifting and long walking. I explained to the patient that he better we stand from heavy lifting and low walking as well as avoid bumpy rides in the car or any other vehicle while he is recovering from the procedure. mobility limitations will be for the next 10 weeks. Patient expressed understanding. Prior: He complains on pain in the lower back exacerbated by prolonged sitting and flexing forward. There is tenderness on palpation in the projection of the lower lumbar spine. He had physical therapy in the past which was not effective to control his pain. He had injections as below which were not helping his pain. He tried NSAIDs which alleviate his pain minimally if at all. The MRI demonstrated very prominent Modic type 2 changes at S1 at L5 and less advanced changes at L4 and L3. I offered the patient today to perform BVN radiofrequency ablation intercept of basivertebral nerves of the L3, L4, L5, S1 vertebra. I will schedule the patient for the procedure. Today we discussed risks and benefits of the procedure including risks of bleeding infection peripheral nerve damage spinal cord damage and headache. He has postlaminectomy syndrome, Dr. Mcclure operated on his back. He was examined elsewhere and sent for the MRI of the lumbar spine. There is no hardware in his back. In the past I performed diagnostic SI joint injection which gave equivocal results. He is working individual and he works for [employer]. COUNTS INCLUDE 234 BEDS AT THE [facility] Medical History Lumbar spondylolysis Lumbar post-laminectomy syndrome Psoriatic arthritis Gout Carpal tunnel syndrome Thyroid disease HTN (hypertension) Diabetes Surgical History Hx of colonoscopy History of breast lump/mass excision (09/23/21) Hx of thumb surgery History of carpal tunnel release History of total left hip replacement Family History Mother HTN (hypertension) Father Hypothyroidism Prostate cancer Social History Are you a primary school child care attendant to a significant other at home: No Do you presently have visiting nurse or other home services: No Alcohol intake: current Alcohol intake frequency: does not drink Comment: COUNTS CORRECT Patient Tobacco Use Status: Never used Tobacco e-Cigarette/Vaping Use: Never Used Second Hand Smoke Exposure: No Review of Systems Const All systems reviewed & are unremarkable except as noted in HPI and below Physical Exam Vital Signs: Last Vital Signs Pulse 107 H 01/10/25 10:34 Resp 16 01/10/25 10:34 BP 157/88 H 01/10/25 10:34 Pulse Ox 96 01/10/25 10:34 Oxygen Delivery Method Room Air 01/10/25 10:34 BMI result Body Mass Index 35.0 Const General: cooperative, no acute distress, well developed, alert, awake and well groomed Nutritional Appearance: obese Orientation/consciousness: patient oriented x3 Limitations: ambulation with cane HEENT Head: Yes normal to inspection and Yes normocephalic Ears: hearing grossly normal bilaterally Eyes General: appearance normal, both eyes and all related structures Visual Salazar: normal visual salazar by confrontation Pupils: Equal, round and reactive pupils present EOM: EOMs intact bilaterally Neck Neck: Yes normal visual inspection, Yes full ROM, Yes no lymphadenopathy, Yes supple and No anterior neck swelling Resp Effort & Inspection: normal respiratory effort, able to speak in complete sentences, normal respiratory pattern, no audible wheezes, no cough, no respiratory distress and symmetric chest movement Cardio Jugular venous distension: no JVD Bruits: no carotid bruits Peripheral pulses: Peripheral pulses 2+ throughout GI Inspection: Yes normal to inspection, No distended and Yes obesity General: Yes no CVA tenderness Back/Spine/Pelvis Other: Able to stand on bilateral tiptoes in bilateral heels without difficulty. Flexing forward greatly aggravate his pain. Prolonged sitting aggravate his pain. Valsalva maneuver aggravate his pain. SLR is negative bilaterally. Benedicto test is equivocal bilaterally. Pelvic compression test is equivocal bilaterally. Back: no CVA tenderness Cervical Spine: Cervical spine tenderness Skin General skin exam: no rashes or lesions noted Rashes: no rashes Neuro General: patient oriented x3 and moves all extremities Cranial nerves: Yes Equal, round and reactive pupils present Gait exam (Neuro): Antalgic gait present (mildly) and Assistive device used Assessment & Plan Assessment & Plan (1) Lumbar spondylolysis: Code(s): M43.06 - Spondylolysis, lumbar region Category: Medical (2) Lumbar post-laminectomy syndrome: Code(s): M96.1 - Postlaminectomy syndrome, not elsewhere classified Category: Medical (3) Muscle spasm of back: Code(s): M62.830 - Muscle spasm of back Category: Medical (4) Sacroiliitis: Code(s): M46.1 - Sacroiliitis, not elsewhere classified Category: Medical (5) Sacroiliac joint pain: Code(s): M53.3 - Sacrococcygeal disorders, not elsewhere classified Category: Medical (6) Vertebrogenic low back pain: Code(s): M54.51 - Vertebrogenic low back pain Category: Medical Plan This patient is suffering from 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 He is status post BVN RFA intercept. He is doing very he reports no pain. I removed sutures today. Activities limitation for the next 8 weeks were explained to the patient. No new appointment is necessary unless patient wants to see me. Coding Level of Care Code Est Pt Level 3 (74511) Diagnoses Lumbar spondylolysis M43.06 Lumbar post-laminectomy syndrome M96.1 Muscle spasm of back M62.830 Sacroiliitis M46.1 Sacroiliac joint pain M53.3 Vertebrogenic low back pain M54.51
[2025-01-10 10:34] VITALS: BP 157/88; PULSE 107; RESP 16; O2SAT 96; BMI 35.0
--- OUTSIDE RECORDS SUMMARY | 2025-01-10 15:25 | XMS_ITS | Patient Health Record ---
Author Organization [facility] Address [address] [place] [address] Care Team Providers Care Trading Assistant Name Role Phone Venturaandi Shivani Primary Care Provider Fredi Bravo Jr Unavailable [phone] Allergies Allergen (clinical drug ingredient) Drug/Non Drug [...] stop date) Never Smoker NA - NA Social History Drugs/Alcohol: Social Info Question Answer Notes Alcohol Screen Did you have a drink containing alcohol in the past year? Yes How often did you have a drink containing alcohol in the past year? 2 to 3 times a week (3 points) How many drinks did you have on a typical day when you were drinking in the past year? 5 or 6 drinks (2 points) How often did you have 6 or more drinks on one occasion in the past year? 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 Problems Problem Type SNOMED Code ICD Code Onset Dates Problem Status W/U Status Risk Notes Problem Colon cancer screening (971213162) Colon cancer screening (Z12.11) Active confirmed Problem long term current use of non-steroidal anti-inflammat ory drug (4611587985407 03) USP (current) use of non-steroidal anti-inflammatori es (NSAID) (Z79.1) Active confirmed Problem Long-term current use of drug therapy (728081407) long term (current) use of oral hypoglycemic drugs (Z79.84) Active confirmed Plan Of Treatment Future Test Test Name Order Date COLONOSCOPY 12/07/2019 Insurance Providers Payer Name Payer Address Payer Phone Subscriber Number Group Number Insured Name Patient Relationship to Insured Coverage Start Date Coverage End Date MEDICAID OF [facility] [address] [place] [phone] [id number] SANDRITA COLEMAN Self - patient is the insured Medical (General) History Medical History History ICD Code diabetes mellitus hypertension Hypothyroidism carpal tunnel Surgical History Surgery Date(Month/Year) left hip replacement carpal tunnel release Finger Surgery - right thumb
== END 2025-01-10 10:51 | disposition home or self-care (01) ==
LOC: HO.PMC 10:25
PROVIDERS: PCP Internal Medicine; Visit Provider Anesthesiology
DX: M43.06 Spondylolysis, lumbar region (principal); M96.1 Postlaminectomy syndrome, not elsewhere classified; M62.830 Muscle spasm of back; M46.1 Sacroiliitis, not elsewhere classified; M53.3 Sacrococcygeal disorders, not elsewhere classified; M54.51 Vertebrogenic low back pain
CPT/HCPCS: 99213